=== PATIENT | female | born 1960 | race Caucasian/White ===

== ENCOUNTER 2025-01-08 09:59 | Outpatient (CLI) | payer MEDICARE, OTHER, SELFPAY ==
--- NOTE | ~2025-01-08 | XR_ITS ---
Cervical Spine: AP, lateral, open-mouth views Clinical History: Pain Findings: The normal lordotic curve is maintained. Grade 1 anterolisthesis of C4 over C5 present. The re is mild facet arthropathy throughout the cervical spine.. Pre-vertebral soft tissues are unremarka ble. Impression: Grade 1 anterolisthesis of C4 over C5. Mild facet arthropathy throughout the cervical spine. Reviewed, dictated and finalized at location . Impression: Grade 1 anterolisthesis of C4 over C5. Mild facet arthropathy throughout the cervical spine.
--- NOTE | ~2025-01-08 | XR_ITS ---
Right Knee Technique: AP, lateral, and sunrise views were obtained. Clinical History: Pain Findings: No fracture or dislocation is seen. Osseous alignment is anatomic. Joint spaces are preserv ed, with minimal patellar spurring. Soft tissues are unremarkable. No joint effusion is seen. Impression: Minimal patellar spurring. Reviewed, dictated and finalized at location . Impression: Minimal patellar spurring.
--- OUTSIDE RECORDS SUMMARY | 2025-01-08 10:24 | XMS_ITS | Continuity of Care Document ---
Author Name [facility] Organization [facility] Care Team Providers Care Supervisor Sheet Manufacturing Name Role Phone [facility] Unavailable Unavailable Problems Combined list of problems from Department of Defense and Veterans Affairs facilities. It does not include entries that were removed or entered in error. Problem Status Onset Date Problem Type Date of Resolution Comments Source Oral herpes simplex infection Active 024 Diagnosis 8819P-Kr-P-375 [facility] Encounter for screening for malignant neoplasm of colon Active 024 Diagnosis 7125L-Mn-R-375 [facility] Allergic rhinitis Active 024 Diagnosis 3748Z-Qx-K-375 [facility] Depressive disorder Active 024 Diagnosis 2020G-Yk-R-375 [facility] Hyperlipidemia Active 024 Diagnosis 2993T-Yk-R-375 [facility] Restless legs Active 024 Diagnosis 4681R-Hn-D-375 [facility] Obstructive sleep apnea syndrome Active 024 Diagnosis 2199L-Rr-T-375 [facility] Pain of bilateral knee joints Active 024 Diagnosis 7643B-Rn-W-375 [facility] Well adult Active 024 Diagnosis 6805C-Vs-U-375 [facility] Allergic rhinitis Active Condition 7224K-Ss-Y-375 [facility] Chronic diarrhea of unknown origin Active Condition 8127Q-Ar-Y-375 [facility] Depressive disorder Active Condition 8134T-Gv-K-375 [facility] Elevated blood pressure Active Condition 7489Q-Ho-W-375 [facility] FH: Cardiovascular disease1 Active Condition Outside Source Comment: ASA 81mg #90 1po qd x3rf ordered in [facility] 0628B-Oo-A-375 [facility] Hip pain Active Condition 8697S-Ed-Z-37 5 [facility] Hyperlipidemia Active Condition 6130C-A f-C-375 [facility] Internal hemorrhoids Active Condition 1071L-Jh-V-37 5 [facility] Morbid obesity Active Condition Unknown Organization Obesity Active Condition 1128P-Ju-U-375 [facility] Obstructive sleep apnea syndrome Active Condition 5289N-Wi-E-375 [facility] Plantar fasciitis Active Condition 0940I-Eg-W-375 [facility] Restless legs Active Condition 6130C-Af -C-375 [facility] Restless legs syndrome Active Condition DoD Obstructive sleep apnea (adult) (pediatric) Active Condition DoD Hyperlipidemia, unspecified Active Condition DoD Pain in left hip Active Condition DoD Pain in left foot Active Condition DoD MICROSCOPIC HEMATURIA Active Condition DoD HEMORRHOIDS INTERNAL Active Condition DoD sudden redness of the skin (flushing) Active Condition DoD ROUTINE GYNECOLOGICAL EXAM Inactive Condition DoD ACROCHORDON Active Condition DoD POSTMENOPAUSAL BLEEDING Active Condition DoD sleep disturbances Active Condition DoD OBESITY MORBID Active Condition DoD ALLERGIC RHINITIS Active Condition DoD SINUSITIS ACUTE Inactive Condition DoD difficulty breathing (dyspnea) Active Condition DoD discharge of pus from eyes Inactive Condition DoD visit for: refer patient without exam or treatment Active Condition DoD Pain / Temperature Decrease Shoulders Active Condition DoD DEPRESSION Active Condition DoD BREAST LUMP OR MASS Active Condition DoD Pelvic Exam (Internal) Inactive Condition DoD PLANTAR FASCIITIS Active Condition DoD OBESITY Active Condition DoD MENOPAUSE Active Condition DoD Murmurs Active Condition DoD CONTACT DERMATITIS Active Condition DoD diarrhea Active Condition DoD MENOPAUSE SYMPTOMATIC Active Condition DoD SINUSITIS Active Condition Will start Augmentin for a 21 day course. She continues to have symptoms will need to have an ENT evaluate her. Discussed the risk of Clostridium difficile and asked her to return for diarrhea DoD Blood Pressure Isolated Elevated Active Condition DoD headache Inactive Condition DoD TONSILLITIS Active Condition Tonsilli ths. Will send to ENT for eval DoD CHOLELITHIASIS Active Condition GS consult DoD Food Sources For Nutrients Active Condition DoD OVERWEIGHT Active Condition Overweigh t status RT nutrition related knowledge deficit AEB BMI above normative standard for age and gender. DoD HYPERLIPIDEMIA Active Condition Alter ed labs RT nutrition related knowledge deficit AEB elevated total and slightly high LDL. DoD Patient Education - Dietary Active Condition Reviewed pt aaliyah d diary incates her diet is low in fiber and slightly high in fat and Na+. Pt should add more fruits and vegetables into her diet to increase fiber, nutrients and minerals as this will help her improve lipids. Pt exercise routine is adequate to address her goals/concerns. Believe pt understood all nutrition concepts and topics presented and she will begin to incorporate today's recommendation into her lifestyle. DoD OLIGOMENORRHEA Active Condition DoD ANXIETY DISORDER NOS Active Condition Will decrease Zoloft dose to 50 mg and start Wellbutrin 100 mg once a day. We discussed how Wellbutrin is typically a b.i.d. medicine but she would like to just take it once a day at first. After two follow up in 4 weeks or sooner if concerns DoD Laboratory Studies Inactive Condition DoD red blood in bowel movement (hematochezia) Active Condition Pt with h/o peptic ulcer and internal hemorrhoids with hematochezia referred to GI for Colonoscopy and EGD. Pt denies hematochezia inlast week or so but will check hemoglobin and occult blood. Denies dizziness, denies SOB, denies CP/palpitations. DoD visit for: screening exam malignant neoplasm breast Active Condition Mammogram ordered. DoD Cervical Pap Smear Active Condition DoD MENORRHAGIA Active Condition Pt had menorrhagia after a brief period of amenorrhea with her FSH and LH indicative of menopause and sx's of menopause. Given pt's age will refer to acid condenser for assessment for an EMB. Will also check an Prl level which pt can't have drawn today but will return to lab to have drawn. DoD reported family history of heart disease Active Condition ASA 81mg #90 1p o qd x3rf ordered in [facility] DoD irregular length of menstrual periods Active Condition DoD ROUTINE GYNECOLOGICAL EXAM WITH CERVICAL PAP SMEAR Active Condition Pt with irregular peroids will check TSH, LH and FSH. Pt denies possiblity of reports is s/p vasectomy and her last intercourse was >6 mos ago. Pt scheduled for f/u in 2 weeks to review labs and continue DUB work-up.Pt reports taking Zoloft for anxiety and then being given Wellbutrin to incerase her sex drive but that the Wellbutrin has not helped sufficiently and she decided to stop taking it 2 months ago. She states that she doesn't want to take it if it isn't doing anything. However, she states that her Zoloft was decreased from 100mg to 50mg when the Wellbutrin was added and now she desires to go back to the Zoloft at 100mg a day because she thinks it worked better for her. She denies any current problems. Denies suicidal ideations. Denies homicidal ideations. Reports her anxiety is doing well but was optimal at 100mg. Will f/u with this when pt RTC in 2 weeks. Pt instructed to RTC sooner if any problems. Discussed with pt the potential adverse/side effects of med including its potential for suicidal ideations and its uncertain safety in and not to take with etoh. Pt instructed to reportt ot the ER if suicidal ideations or homicidal ideations occur. DoD visit for: screening exam for malignant neoplasm cervix Inactive Condition DoD visit for: issue repeat prescription Inactive Condition DoD joint pain, localized in the hip Active Condition DoD PHARYNGITIS Inactive Condition DoD UPPER RESPIRATORY INFECTION ACUTE Inactive Condition DoD visit for: issue repeat prescription for medication Inactive Condition DoD STRAIN Inactive Condition released t o full duty/work status on 01/20/05. Will call her insurance company. DoD PANIC DISORDER WITHOUT AGORAPHOBIA Active Condition good control, refill meds DoD visit for: administrative purpose Inactive Condition DoD BACKACHE Inactive Condition DoD BRONCHITIS Active Condition Pt to dri nk plenty of fluids, rest and to wash hands regularly. DoD Medications Combined list of outpatient medications from Department of Defense and Veterans Affairs facilities.Medications provided include 1) outpatient medications from the last 15 months, and 2) patient-reported medications. Medication Details Route Status Patient Instructions Prescription Expires Prescription Number Last Dispense Date Ordering Provider Order Date Order Qty Source celecoxib 100 mg capsule See Instruct ions, # 60 EA, 0 total refill(s ), Soft Stop Ordered 5 2024 60.0 Ambulat ory Pharmac y Centrum Silver Ultra Women's Oral, Daily, 0 total refill(s ), Maintena nce Oral (given by mouth) Ordered 2022 6130C-A f-C-375 [facility] CETIRIZINE (U/D) 10 MG ORAL TAB May cause drowsine ss.Obtai n advice for OTCs. 04/16/2024 [id number] 3 2023 90 [facility] [place] ([facility] [place]) cetirizine 10 mg oral tablet 1 tab(s), Oral, Daily, 90 tab(s), # 90 tab(s), 3 total refill(s ), [facility], Pharmacy : [facility] Oral (given by mouth) Ordered 5 2023 90.0 6130C-A f-C-375 [facility] cetirizine 10 mg oral tablet 90 tab(s), 0 total refill(s ), Soft Stop Discont inued 04/17/20232022 6130C-A -C-375 [facility] cetirizine 10 mg oral tablet 1 tab(s), Oral, Daily, 90 tab(s), # 90 tab(s), 3 total refill(s ), [facility], Pharmacy : [facility] Oral (given by mouth) Discont inued 05/10/2024 4 2023 90.0 6130C-A -C-375 [facility] famotidine 20 mg oral tablet TAKE ONE TABLET BY MOUTH TWICE A DAY, # 90 EA, 1 total refill(s ), Acute Complet ed 02/03/2023 3 2022 90.0 Ambulat ory Pharmac y famotidine 20 mg oral tablet famotidi ne 20 mg oral tablet Start Date: 05/27/21 Stop Date: 05/10/24 Status: Disconti adriana Repeat number: 1 Discont inued 05/10/20242023 No Facilit y Access famotidine 20 mg oral tablet 90 tab(s), 0 total refill(s ), Soft Stop Discont inued 04/17/20232022 6130C-A -C-375 Th [facility] famotidine 20 mg oral tablet 1 tab(s), Oral, Daily, 90 tab(s), # 90 tab(s), 3 total refill(s ), [facility], Pharmacy : [facility] Oral (given by mouth) Discont inued 05/10/2024 4 2023 90.0 6130C-A -C-375 Th [facility] FLUCELVAX QUAD [id number] (flu vaccine quad [id number](4 years and older)cell derived/PF) , 60MCG/.5ML FLUCELVA X QUAD 1 (flu vaccine quad 1(4 years and older)ce ll derived/ PF), 60MCG/.5 ML Start Date: 06/13/20 Stop Date: 03/23/23 Status: Complete d Repeat number: 1 Complet ed 03/23/20232022 No Facilit y Access fluticasone 50 mcg/inh nasal spray fluticas one 50 mcg/inh nasal spray Start Date: 12/23/20 Stop Date: 05/10/24 Status: Disconti nued Repeat number: 1 Discont inued 05/10/20242023 No Facilit y Access rOPINIRole 1 MG ORAL TAB May cause drowsine ss.Take with food/mil k.Take or use exactly as directed . 04/16/2024 [id number] 3 2023 90 [facility] [place] ([facility] [place]) rOPINIRole 1 mg oral tablet rOPINIRo le 1 mg oral tablet Start Date: 04/15/21 Stop Date: 05/10/24 Status: Disconti nued Repeat number: 1 Discont inued 05/10/20242023 No Facilit y Access rOPINIRole 1 mg oral tablet 1 tab(s), Oral, Daily, 90 tab(s), # 90 tab(s), 3 total refill(s ), [facility], Pharmacy : [facility] Oral (given by mouth) Ordered 5 2023 90.0 6130C-A f-C-375 Th [facility] rOPINIRole 1 mg oral tablet 90 tab(s), 0 total refill(s ), Soft Stop Discont inued 04/17/20232022 6130C-A f-C-375 Th [facility] rOPINIRole 1 mg oral tablet 1 tab(s), Oral, Daily, 90 tab(s), # 90 tab(s), 3 total refill(s ), [facility], Pharmacy : [facility] Oral (given by mouth) Discont inued 05/10/2024 4 2023 90.0 6130C-A f-C-375 [facility] rosuvastati n (U/D) 10 MG ORAL TAB Do not take with milk, antacids , or iron.Servando e or use exactly as directed .Do not take if . 04/16/2024 [id number] 3 [address] [place] [address] ([facility] [place]) rosuvastati n 10 mg oral tablet rosuvast atin 10 mg oral tablet Start Date: 12/11/20 Stop Date: 05/10/24 Status: Disconti numere Repeat number: 1 Discont inued 05/10/20242023 No Facilit y Access rosuvastati n 10 mg oral tablet 1 tab(s), Oral, Daily, 90 tab(s), # 90 tab(s), 3 total refill(s ), [facility], Pharmacy : [facility] Oral (given by mouth) Ordered 5 2023 90.0 6130C-A -C-375 [facility] rosuvastati n 10 mg oral tablet 90 tab(s), 0 total refill(s ), Soft Stop Discont inued 04/17/20232022 6130C-A f-C-375 [facility] rosuvastati n 10 mg oral tablet 1 tab(s), Oral, Daily, 90 tab(s), # 90 tab(s), 3 total refill(s ), [facility], Pharmacy : [facility] Oral (given by mouth) Discont inued 05/10/2024 4 2023 90.0 6130C-A f-C-375 [facility] sertraline (U/D) 100 MG ORAL TAB May cause drowsine ss.Take or use exactly as directed .Obtain advice for OTCs. 04/16/2024 [id number] 3 [address] [place] [address] ([facility] [place]) sertraline 100 mg oral tablet 1 tab(s), Oral, Daily, take with the 50mg tablet to be a total of 150mg daily, # 90 tab(s), 3 total refill(s ), [facility], Pharmacy : [facility] Oral (given by mouth) Ordered 2023 90.0 6130C-A f-C-375 [facility] sertraline 100 mg oral tablet sertrali ne 100 mg oral tablet Start Date: 05/27/21 Stop Date: 05/10/24 Status: Disconti adriana Repeat number: 1 Discont inued 05/10/20242023 No Facilit y Access sertraline 100 mg oral tablet 1 tab(s), Oral, Daily, 90 tab(s), # 90 tab(s), 3 total refill(s ), [facility], Pharmacy : [facility] Oral (given by mouth) Discont inued 05/10/20242023 90.0 6130C-A f-C-375 [facility] sertraline 100 mg oral tablet 90 tab(s), 0 total refill(s ), Soft Stop Discont inued 04/17/20232022 6130C-A f-C-375 [facility] sertraline 100 mg oral tablet 1 tab(s), Oral, Daily, 90 tab(s), # 90 tab(s), 3 total refill(s ), [facility], Pharmacy : [facility] Oral (given by mouth) Discont inued 05/10/2024 2023 90.0 6130C-A -C-[address] [facility] s[facility]ine 150 mg oral capsule 1 cap(s), Oral, Daily, # 90 cap(s), 3 total refill(s ), [facility], Pharmacy : [facility] Oral (given by mouth) Discont inued 05/10/20242023 90.0 6130C-A f-C-375 [facility] sertraline 50 mg oral tablet 1 tab(s), Oral, Daily, take with 100mg tablet to be a total of 150mg daliyy, # 90 tab(s), 3 total refill(s ), [facility], Pharmacy : [facility] Oral (given by mouth) Ordered 5 2023 90.0 6130C-A -C-375 Th [facility] sertraline 50 mg oral tablet sertrali ne 50 mg oral tablet Start Date: 04/15/21 Stop Date: 03/23/23 Status: Complete d Repeat number: 1 Complet ed 03/23/20232022 No Facilit y Access tirzepatide (Zepbound) 2.5 mg/0.5 mL inj-pen [4pens/2mL] See Instruct ions, # 2 mL, 0 total refill(s ), Soft Stop Notes: refriger ate Ordered 5 2024 2.0 Ambulat ory Pharmac y valACYclovi r 500 mg oral tablet 3 total refill(s ) Discont inued 05/10/20242023 No Facilit y Access valACYclovi r 500 mg oral tablet 1 tab(s), Oral, Daily, 90 tab(s), # 90 tab(s), 3 total refill(s ), [facility], Pharmacy : [facility] , Viral prophyla xis Oral (given by mouth) Ordered 5 2023 90.0 6130CA -C-375 Th [facility] valACYclovi r 500 mg oral tablet 90 tab(s), 0 total refill(s ), Soft Stop Discont inued 04/17/20232022 6130CA -C-375 Th [facility] valACYclovi r 500 mg oral tablet 1 tab(s), Oral, Daily, 90 tab(s), # 90 tab(s), 3 total refill(s ), [facility], Pharmacy : [facility] Oral (given by mouth) Discont inued 05/10/2024 4 2023 90.0 6130C-A -C-375 Th [facility] Allergies, Adverse Reactions, Alerts Combined list of allergies from Department of Defense and Veterans Affairs facilities. It does not include entries that were removed or entered in error. Substance Category Reaction Severity Reaction type Status Date Reported Comments Source No Known Allergies Drug allergy (disorder) active 09/18/2007 [facility] [place] ([facility] [place]) Immunizations Combined list of available immunizations from the Department of Defense and Veterans Affairs facilities. Immunization Series Date Given Administered By Site Reaction Lot Number CVX Code Drug Manager Hair Status Comments Source tetanus toxoid, reduced diphtheria toxoid, and acellular pertu is vaccine, adsorbed 1 2021 Unknown, Provider [id number] [facility] (B) complet ed tetanus toxoid, reduced diphtheri a toxoid, and acellular pertussis vaccine, adsorbed DoD COVID-19, mRNA, LNP-S, PF, 30 mcg/0.3 mL dose, winnie-sucrose 2021 DANYELL, [place] (PFR) Not Given COVID-19, mRNA, LNP-S, PF, 30 mcg/0.3 mL dose, winnie-sucr ose DoD SARS-COV-2 (COVID-19) vaccine, mRNA, spike protein, LNP, preservative free, 30 mcg/0.3mL dose 3 2021 Unknown, Provider [id number] [employer] (PFR) complet ed SARS-COV- 2 (COVID-19 ) vaccine, mRNA, spike protein, LNP, preservat shukri free, 30 mcg/0.3mL dose DoD influenza, injectable, quadrivalent- pf 2020 zzLef t Arm [id number] 150 [facility] complet ed influenza , injectabl e, quadrival ent-pf 06/10/21 Given Ambulat ory Pharmac y Influenza, injectable, quadrivalent, preservative free 1 2020 Unknown, Provider [id number] 150 [facility] ([facility]) complet ed Influenza , injectabl e, quadrival ent, preservat shukri free DoD COVID Vaccine Pfizer 2020 [id number] [employer] complet ed COVID Vaccine Pfizer 12/14/20 Given Ambulat ory Pharmac y SARS-COV-2 (COVID-19) vaccine, mRNA, spike protein, LNP, preservative free, 30 mcg/0.3mL dose 2 2020 Unknown, Provider [id number] [employer] (PFR) complet ed SARS-COV- 2 (COVID-19 ) vaccine, mRNA, spike protein, LNP, preservat shukri free, 30 mcg/0.3mL dose DoD COVID Vaccine Pfizer 2020 [id number] [employer] complet ed COVID Vaccine Pfizer 11/23/20 Given Ambulat ory Pharmac y SARS-COV-2 (COVID-19) vaccine, mRNA, spike protein, LNP, preservative free, 30 mcg/0.3mL dose 1 2020 Unknown, Provider [id number] [employer] Inc (PFR) complet ed SARS-COV- 2 (COVID-19 ) vaccine, mRNA, spike protein, LNP, preservat shukri free, 30 mcg/0.3mL dose DoD zoster vaccine, inactivated 2019 zzLef t Arm [id number] [employer] complet ed zoster vaccine, inactivat ed 08/12/20 Given Ambulat ory Pharmac y zoster vaccine recombinant 1 2019 Unknown, Provider [id number] 187 [employer] (SKB) complet ed zoster vaccine recombina nt DoD Influenza, injectable, MDCK, preservative free, quadrivalent 2019 ALUL, () Not Given Influenza , injectabl e, MDCK, preservat shukri free, quadrival ent DoD zoster vaccine, inactivated 2019 zzLef t Arm [id number] 187 [employer] complet ed zoster vaccine, inactivat ed 05/21/20 Given Ambulat ory Pharmac y zoster vaccine recombinant 1 2019 Unknown, Provider [id number] 187 [employer] (SKB) complet ed zoster vaccine recombina nt DoD Results Combined list of recent chemistry, hematology and other laboratory results from Department of Defense and Veterans Affairs, ranging from 15 months to all on record, depending upon the facility. Order Name Results Value Reference Range Date Interpretation Specimen Comments Source Chemistry eGFR CKD EPI 83 mL/min /1.73_ m2 04/07 Interpretive Data: Estimated Glomerular Filtration Rate (eGFR) calculated using the 2020 Chronic Kidney Disease-Epid emiology (CKD-EPI) Collaboratio n creatinine equation; units of measure are mL/min/1.73 m2. Results are only valid for adults (>=18 years) whose serum creatinine is in steady state. eGFR calculations are not valid for patients with acute kidney injury and for patients on dialysis. Creatinine-b ased estimates of kidney function may also be inaccurate in patients with reduced creatinine generation due to decreased muscle mass (e.g., malnutrition , severe hypoalbumine rena, sarcopenia, chronic neuromuscula r disease, amputations, severe heart failure or liver disease) and in patients with increased creatinine generation due to increased muscle mass (e.g., muscle builders, anabolic steroids) or increased dietary intake. CKD is diagnosed based on abnormalitie s of kidney structure or function, present for >3 months, with implications for health and disease. CKD is classified and staged based on cause, eGFR and albuminuria (quantified as urine albumin to creatinine ratio). An eGFR >60 mL/min/1.73 m2 in the absence of increased urine albumin excretion or structural abnormalitie s does not CKD. eGFR provides only an estimate of measured GFR within +/- 30% for most patients. As mentioned, nutritional status and muscle mass, among many factors, may lead to inaccuracy in the estimate. Consider ordering the creatinine-c ystatin C panel if better accuracy is needed for clinical decision-wesley ing. eGFR (mL/min/1.73 m2) CKD stage Interpretati on Normal 60-89 Mild decrease 45-59 Mild to moderate decrease 30-44 Moderate to severe decrease 15-29 Severe decrease <15 Kidney failure 0055A-3 [facility] [place] Chemistry AGAP 11.00 0.00 - 15.00 04/07 N 0055A-[address] [place], [place] [address] Chemistry Chloride 112 mmol/L 98 - 107 04/07 H 0055A-[address] [place] [address] [facility] Chemistry Glucose Lvl 103 mg/dL 74 - 99 04/07 H 0055A-[address] [place] [address] [facility] Chemistry BUN 15 mg/dL 7 - 20 04/07 N 0055A-[address] [place], [place] [address] Chemistry Potassium Lvl 4.6 mmol/L 3.5 - 5.1 04/07 N 0055A-[address] [place], [place] [address] Chemistry CO2 26 mmol/L 22 - 29 04/07 N 0055A-[address] [place] [address] [facility] Chemistry BUN/Creat Ratio 19 mg/dL 12 - 20 04/07 N 0055A-[address] [place] [address]- [facility] Chemistry Sodium 149 mmol/L 136 - 145 04/07 H 0055A-[address] [place] [address]- [facility] Chemistry Calcium 9.7 mg/dL 8.4 - 10.2 04/[address] [place] [address] Chemistry Creatinine Level 0.80 mg/dL 0.57 - 1.11 04/[address] [place] [address] Chemistry Ur Creat 126 mg/dL 04/[address] [place] [address] Chemistry Ur Microalb/Ur Creat Ratio 4.8 mg/gCr 04/07 Result Comment: CORRECTED DUE TO UNIT OF MEASURE CONVERSION. [address] [place] [address] Chemistry Ur Microalbumi n 6 mg/gCr 04/07 N Interpretive Data: To minimize intra-indivi dual variation, analysis of three random urine samples collected over the course of a week has also been recommended. [address] [place] [address] Chemistry Hemoglobin A1c 5.1 % 4.0 - 5.6 04/07 N Interpretive Data: Normal: 4.0 - 5.6% Increased Risk: 5.7 - 6.4% Diabetic Range: 6.5% For patients without diabetes, the normal range for the hemoglobin A1c test is between 4% and 5.6%. Hemoglobin A1c levels between 5.7% and 6.4% indicate increased risk of diabetes, and levels of 6.5% or higher indicate diabetes. Because studies have repeatedly shown that yyu-ho-pophe ol diabetes results in complication s from the disease, the goal for people with diabetes is a hemoglobin A1c less than 7%. The higher the hemoglobin A1c, the higher the risks of developing complication s related to diabetes. If confirmation is needed, consider recalling the patient and ordering Hemoglobin [employer]roph[employer] sis. [address] [place] [address] Chemistry eAvg Glucose 100 mg/dL 04/[address] [place] [address] Chemistry HDL Cholesterol 63 mg/dL 40 - 59 04/07 H Interpretive Data: HDL (HIGH DENSITY LIPOPROTEIN) : ADULTS: Low: < 40 mg/dL High: >/= 60 mg/dL AGES 0 -19: Low: < 40 mg/dL Borderline Low: 40 - 45 mg/dL Acceptable: > 45 mg/dL [address] [place] [address] Chemistry LDL 89 mg/dL 100 - 130 04/07 L Interpretive Data: AGES 0-19: Desirable: < 110 mg/dL Borderline High: 110-129 mg/dL High: >/= 130 mg/dL ADULTS: Desirable: <100 mg/dL Near/above optimal: 100-130 mg/dL Borderline High: 131-159 mg/dL High: 160-189 mg/dL Very High: 190 mg/dL [address] [place] [address] Chemistry Chol/HDL 3 mg/dL 04/[address] [place] [address] Chemistry Cholesterol Total 158 mg/dL 04/07 N Interpretive Data: According to the [place] [employer]: AGES 0-19: Desirable: < 170 mg/dL Borderline High: 170-199 mg/dL High Blood Cholesterol: >/= 200 mg/dL ADULTS: Desirable < 200 mg/dL Borderline High: 200-239 mg/dL High Blood Cholesterol: >/= 240 mg/dL [address] [place] [address] Chemistry LDL/HDL 1 04/[address] [place] [address] Chemistry Triglycerid es 120 mg/dL 7 - 149 04/07 N Interpretive Data: AGES 0-9: Desirable: < 75 mg/dL Borderline High: 75-99 mg/dL High: >/= 100 mg/dL AGES 10-19: Desirable: < 90 mg/dL Borderline High: 90-129 mg/dL High: >/= 130 mg/dL ADULTS: Desirable: < 150 mg/dL Borderline High: 150-199 mg/dL High: >/= 240 mg/dL Very High: >/= 500 mg/dL [address] [place] [address] Vital Signs Combined list of inpatient and outpatient Vital Signs from Department of Defense and Veterans Affairs, ranging from 12 months to all on record, depending upon the facility. Vital Sign Value Date Comments Source Blood Pressure Manual Automatic 04/17/2023 20:40:00 [id number] 81 bpm 04/17/2023 20:40:00 [facility] Mean Arterial Pressure, Calc 96 mm[Hg] 04/17/2023 20:40:00 5095T-Kn-E-[address] [place], [place] [address]Ishan Systolic Blood Pressure 129 mm[Hg] 04/17/2023 20:40:00 8924K-Yt-I-375Th [facility] Diastolic Blood Pressure 79 mm[Hg] 04/17/2023 20:40:00 4446M-Op-A-375Th [facility] Respiratory Rate 16 br/min 04/17/2023 20:40:00 9416H-Sy-J-375Th [facility] BP Site Left arm 04/17/2023 20:40:00 6130C -Af-C-375Th [facility] Peripheral Pulse Rate 64 bpm 03/23/2023 14:54:00 4949O-Rp-C-375Th [facility] BP Site Right arm 03/23/2023 14:54:00 6130C -Af-C-375Th [facility] Blood Pressure Manual Automatic 03/23/2023 14:54:00 6636W-Qy-L-375Th [facility] Systolic Blood Pressure 140 mm[Hg] 03/23/2023 14:54:00 0536M-Fw-M-375Th [facility] Diastolic Blood Pressure 83 mm[Hg] 03/23/2023 14:54:00 1595O-Zc-I-375Th [facility] Mean Arterial Pressure, Calc 102 mm[Hg] 03/23/2023 14:54:00 8104Z-Er-G-3 75Th [facility] Peripheral Pulse Rate 59 bpm 05/10/2024 14:59:00 7888K-Wq-H-375Th [facility] Respiratory Rate 18 br/min 05/10/2024 14:59:00 9959I-Cl-P-375Th [facility] Mean Arterial Pressure, Calc 101 mm[Hg] 05/10/2024 14:59:00 6026U-Lm-R-3 75Th [facility] BP Site Right arm 05/10/2024 14:59:00 6130C -Af-C-375Th [facility] Systolic Blood Pressure 143 mm[Hg] 05/10/2024 14:59:00 7646F-Fd-V-375Th [facility] Diastolic Blood Pressure 80 mm[Hg] 05/10/2024 14:59:00 0063Z-On-X-375Th [facility] Blood Pressure Manual Automatic 05/10/2024 14:59:00 8656M-Rx-L-375Th [facility] Encounters Combined list of: 1) Encounters from Department of Veterans Affairs facilities going backup to the last 18 months, not all VA inpatient encounters are included; 2) Encounters from the Department of Defense facilities going backup to 280 months. Location Location Details Encounter Type Encounter Number Reason For Visit Attending Provider ADM Date DC Date Status Disposition Source [address] [place] [address] Ishan [facility] rishabh Practice Non-GME FHI2) OUTPATIENT [id number] cough/c hest congest EMERALD PEARCE 10/20 Released w/o Limitations [address] [place] [address] Ishan [facility])(F amily Practic e Non-GME FHI2) [address] [place] [address] Ishan [facility] rishabh Practice Non-GME FHI1) TELE CONSULT [id number] Needs paper filled out. CRISTOFER JACOB 12/[address] [place] [address] Ishan [facility])(F amily Practic e Non-GME FHI1) [address] [place] [address] Ishan [facility])([facility] rishabh Practice Non-GME FHI1) TELE CONSULT [id number] CECIL CRISTOFER 01/[address] [place] [address] Ishan [facility])(F amily Practic e Non-GME FHI1) [address] [place] [address] Ishan [facility])([facility] rishabh Practice Non-GME FHI1) TELE CONSULT [id number] RX REFILL DESTINEE JACKSON 07/[address] [place] [address] Ishan [facility])(F amily Practic e Non-GME FHI1) [address] [place] [address] Ishan B [facility])([facility] rishabh Practice Non-GME FHI1) OUTPATIENT [id number] PROD COUGH, S/T MIKEY GONZALEZ 08/31 Released w/o Limitations [address] [place] [address] Ishan [facility])(F amily Practic e Non-GME FHI1) [address] [place] [address] Ishan B [facility] rishabh Practice Non-GME FHI1) OUTPATIENT [id number] POSS LIZZIE WHITE 12/07 Released w/o Limitations [address] [place] [address] Ishan [employer] [facility])(F amily Practic e Non-GME FHI1) [address] [place] [address] Ishan B [facility])(Fam rishabh Practice Non-GME FHI1) OUTPATIENT [id number] hip and foot LIZZIE DOE 01/09 [id number]|2025-01-08 10:24:00|2025-01-08 10:24:00|XMS_ITS|MAX NAPIER|External Medical Summaries|[id number]|" Clinical Summary Created on: January 08, 2025 Tawana Chaparro Demian : 1960 Sex: Female Author Organization [facility] Address [address] [place] [address] Care Team Providers Care Supervisor Sheet Manufacturing Name Role Phone Unavailable Primary Care Provider Unavailabl e Social History Tobacco Use Types Packs/Day Years Used Date Smoking Tobacco: Never Assessed Comments Unknown Sex and Gender Information Value Date Recorded Sex Assigned at Not on file Legal Sex Female 6:56 PM CDT Gender Identity Not on file Sexual Orientation Not on file Plan of Treatment Health Maintenance Due Date Last Done Comments Colorectal Cancer Screening Colonoscopy (10 Years) 1960 Hepatitis C 11/15/1977 DTaP, Tdap and Td Vaccines ( 1 - Tdap) 11/15/1978 Mammogram Screening 1999 Pneumococcal Vaccine: 50+ Ye ars (1 of 1 - PCV) 11/15/2009 Zoster Vaccines (1 of 2) 11/15/2009 COVID-19 Vaccine (1 - 2023-2 5 season) 2024 Dexa Scan (General) 11/15/2024 RSV Immunization or 60+ Years (1 - 1-dose 75+ series) 11/15/2034 Meningococcal B Vaccine Aged Out No l onger eligible based on patient's age to complete this topic Meningococcal Vaccine Aged Out No olga ava eligible based on patient's age to complete this topic RSV Immunizations Under 20 Months Aged Out No longer eligible based on patient's age to complete this topic "
--- OUTSIDE RECORDS SUMMARY | 2025-01-08 10:24 | XMS_ITS | Data Portability ---
Author Organization [facility] ([facility] Address [address] [facility] [address] [place] [address] Care Team Providers Care Pill Coater Name Role Phone SHAUN JOSHI Referring Provider Unavailable Assessment No assessment recorded. Plan of Treatment Reminders Order Date Submit Date Provider Last Modified By Organization Details Last Modified Time Details Appointments None record ed. Lab None record ed. Referral None record ed. Procedures None record ed. Surgeries None record ed. Imaging None record ed. Medication Orders None record ed. Patient TargetsNo targets recorded. Patient InstructionsNo instructions recorded. Reason for Referral None Reported. Procedures Surgical History Date Name Laterality Status Provider Name and Address Organization Details Recorded Time 06/19/2018 Sleep Study completed Lamine Saha [facility] 06/20/20 18 10:31:33 Imaging Results None recorded. Procedure Notes None recorded. Medical Equipment None Reported. Vitals Date Recorded Body height Body mass index (BMI) Body weight Provider Name and Address Organization Details Last Updated DateTime 06/19/2018 165.1 cm 46.6 kg/m2 119528.86 g Lamine Saha [facility] 06/20/2018 10:19:29 Social History Question Answer Notes LastModified by Organizat ion Details LastModified Time Describe Your Sleep Problem Snores A Lot, Says She Could peel The [place] Of [place] With Her Snoring, Gets Acid Reflux At Night, Very Vivid Dreams, Gets A Headache An Hour After She Gets Up Every Day. Information not available 03/01/2018 Have You Had A Sleep Study Before? No Information not available 03/01/2018 Do You Snore? Yes Information not available 03/01/2018 Has Anyone Ever Told You That You Stop Breathing In Your Sleep Or Do You Waking Up Gasping/choki ng? Yes Says She's Stopped Breathing Information not available 03/01/2018 Do Your Legs Bother You At Night? Yes Information not available 03/01/2018 Do You Have Any Muscle Weakness With Emotion? No Information not available 03/01/2018 Sitting Quietly Do You Doze Off Unintentional ly? Yes In The 3 Months Information not available 03/01/2018 Do You Fall Asleep While Driving? No Information not available 03/01/2018 Do You Require Special Assistance? No Information not available 03/01/2018 Are You On Oxygen? If So, # LPM O2 No Information not available 03/01/2018 Sex: Unknown Functional Status None recorded. Mental Status None recorded. Family History Nothing Reported. Medical History No medical history recorded. Gynecological HistoryNo gynecological history recorded. Obstetrics History GPAL:G 0 P 0 0 0 0 Past Encounters Encounter ID Performer Location Encounter Start Date Encounter Closed Date Diagnosis/Indication Diagnosis SNOMED-CT Code Diagnosis ICD10 Code Diagnosis Note [id number] [facility] [place], [facility] [phone] [facility] [address] [place] [address] 06/19/2018 20:56:01 06/20/2018 10:17:53 Obstructive sleep apnea of adult 2320812784 103 G47.33 Health Concerns Section Related Observation LastModified by Organization Detai ls LastModified Time None Recorded Concern Status LastModified by Organization Details LastModified Time None Recorded Advance Directives Directive None Recorded Payers Insurance Date Sequence Insurance Name Policy Number Policy Marks Covered Member ID Marks Member ID Guarantor Name 06/29/2018 1 [facility] () Tawana Chaparro [id number] Tawana Chaparro OBGyn Episode No OBEpisode recorded.
--- OUTSIDE RECORDS SUMMARY | 2025-01-08 10:25 | XMS_ITS | Clinical Summary ---
Author Organization [facility] Address [address] [place] [address] Phone Care Team Providers Care Cartographic Designer Name Role Phone Provider, None Primary Care Provider Unavailabl e Allergies No known active allergies Medications Rosuvastatin Calcium (CRESTOR PO) Take 25 mg by mouth. Active sertraline (ZOLOFT) 100 MG Tablet Take 100 mg by mouth daily. Active Social History Tobacco Use Types Packs/Day Years Used Date Smoking Tobacco: Never Alcohol Use Standard Drinks/Week Comments No 0 (1 standard drink = 0.6 oz pur e alcohol) Comments No Sex and Gender Information Value Date Recorded Sex Assigned at Not on file Legal Sex Female 6:37 PM CDT Gender Identity Not on file Sexual Orientation Not on file Last Filed Vital Signs Vital Sign Reading Time Taken Comments Blood Pressure 163/85 12/01/2016 9:45 PM CDT Pulse 60 12/01/2016 9:45 PM CDT Temperature 36.1 C (96.9 F) 12/01/2016 7:04 PM CDT Respiratory Rate 18 12/01/2016 9:45 PM CDT Oxygen Saturation 97% 12/01/2016 7:04 PM CDT Inhaled Oxygen Concentration - - Weight 117.9 kg (260 lb) 12/01/2016 7:04 PM CDT Height 165.1 cm (5' 5 ) 12/01/2016 7:04 PM CDT Body Mass Index 43.27 12/01/2016 7:04 PM CDT Plan of Treatment Health Maintenance Due Date Last Done Comments Hepatitis C Virus (HCV) Screening 1960 TdaP Immunization 1960 Pap Smear 11/15/1980 Cervical Cancer Screening (CCS) 11/15/1989 HPV/Cotest 11/15/1989 Colonoscopy 11/15/2004 Colorectal Cancer Screening 11/15/2004 Cologuard 11/15/2009 Immunochemical Fecal Occult Blood 11/15/2009 Mammogram 11/15/2009 Pneumococcal Immunization (5 0+ years) (1 of 1 - PCV) 11/15/2009 Zoster Immunization (1 of 2) 11/15/2009 Influenza Immunization (#1) 2024 SARS-COV-2 Immunization ( - 2023- season) 2024 Respiratory Syncytial Virus (RSV) Immunization (Adult) (1 - 1-dose 75+ series) 11/15/2034 Hepatitis B Immunization Aged Out No longer eligible based on patient's age to complete this topic Meningococcal Immunization (ACWY) Aged Out No longer eligible based on patient's age to complete this topic Pneumococcal Immunization Combined Aged Out No longer eligible based on patient's age to complete this topic Rotavirus Immunization Aged Out No lo nger eligible based on patient's age to complete this topic Care Teams Cartographic Designer Relationship Specialty Start Date End Date Provider, None [place] PCP - General 12/01/16
== END 2025-01-08 10:00 | disposition home or self-care (01) ==
PROVIDERS: PCP Nurse Practitioner Family; Visit Provider Nurse Practitioner Family
DX: M25.561 Pain in right knee (principal); M25.562 Pain in left knee; M47.812 Spondylosis without myelopathy or radiculopathy, cervical region
CPT/HCPCS: 72040; 73564

== ENCOUNTER 2025-01-10 08:09 | Outpatient (CLI) | payer MEDICARE, OTHER, SELFPAY ==
--- NOTE | ~2025-01-10 | DEXA_ITS ---
Bone Density Report Name: MILLER CLEMONS Age: 64 Sex: Female Ethnicity: White Date of : 1960 Indication: screening for osteoporosis; Referring Provider: ANDREZ GUZMÁN Study: Bone densitometry was performed. Exam Date: January 10, 2025 Accession number: [id number] Bone Density: Region BMD T-score Z-score Classification AP Spine(L1-L4) 0.887 -1.5 0.3 Osteopenia Femoral Neck (Left) 0.650 -1.8 -0.3 Osteopenia Total Hip (Left) 1.008 0.5 1.8 Normal Femoral Neck (Right) 0.651 -1.8 -0.3 Osteopenia Total Hip (Right) 0.943 0.0 1.2 Normal Total Hip Mean 0.975 0.3 1.5 Normal World Health Organization criteria for BMD impression classify patients as: Normal (T-score at or above -1.0), Osteopenia (T-score between -1.0 and -2.5), or Osteoporosis (T-score at or below -2.5). 10-year Fracture Risk: FRAX not reported because: Premenopausal woman Clinical Information Provided by Patient: Has used the following medications: Vitamin D, Calcium Patient maximum height was 65 Menopause Age: 49 No regular weight bearing exercise Drinks caffeinated beverages Onset of menses at age 15 Premenopausal Number of children 2 Impression: The patient's bone mass is within expected range for age, gender and ethnicity. Discussion: BONE DENSITY IS WITHIN EXPECTED LIMITS FOR AGE, SEX AND RACE. Bone density is within expected limits for age, sex and race at all sites measured. The patient should follow a healthful lifestyle (good nutrition with adequate calcium and vitamin D, and appropriate weight-bearing exercise). Follow-Up: Consider repeating this study in 2 to 3 years to reassess this patient's status, or sooner if there is some new clinical indication. Reported by: WAYNE on 01/10/2025 8:49:00 AM. Reviewed, dictated and finalized at location A.
--- OUTSIDE RECORDS SUMMARY | 2025-01-10 08:15 | XMS_ITS ---
"Ishan ELLSWORTH [place] [place] 3) [address] [place] [address] Ishan TUNGNicolle [place] [place] Team 3) TELE CONSULT [id number] Saturnino haynes for echo cardio gram. AMW Pt number [phone] PATRIC ALMONTE 06/17 Referred for Appointment [address] [place] [address] Group Ishan ELLSWORTH [place] [place] [address]) [address] [place] [address] Ishan ELLSWORTH [facility]Fam rishabh Med Tm B Non-AD BCC) TELE CONSULT [id number] weekend exchang e call USHA JAIN 07/[address] [place] [address] Group Ishan TUNGNicolle ([facility] [place]F amily Med Tm B Non-AD BCC) [address] [place] [address] Ishan ELLSWORTH [facility])(Car diology (MTF)) OUTPATIENT [id number] murmur LIPOFFJEREMÍAS I 07/13 Released w/o Limitations [address] [place] [address] Ishan TUNGNicolle [place] [place]C ardiolo gy ([facility])) [address] [place] [address] Ishan TUNGNicolle [facility] Team 3) TELE CONSULT [id number] Saturnino /[phone]/ne eds meds refill to [id number] PATRIC ALMONTE 07/[address] [place] [address] Group Ishan TUNGNicolle [facility] 3) [address] [place] [address] Ishan TUNGNicolle [facility])([facility] Team 3) OUTPATIENT [id number] f/u to echo [phone] TYSON CALVIN 08/25 Released w/o Limitations [address] [place] [address] Ishan ELLSWORTH [facility] 3) [address] [place] [address] Ishan TUNGNicolle [facility])([facility] Team 3) TELE CONSULT [id number] lab results - PCM YESSENIA Brower 08/26 Other Not Elsewhere Classified [facility] Medical Group Ishan ELLSWORTH [facility] 3) [address] [place] [address] Ishan ELLSWORTH [facility] Team 3) TELE CONSULT [id number] new meds not working [phone] YESSENIA FITZPATRICK 08/31 Referred for Appointment [address] [place] [address] Ishan ELLSWORTH [facility] 3) [address] [place] [address] Ishan ELLSWORTH [facility] Team 3) OUTPATIENT [id number] sinus.. .[id number] KETTY RAINES Ganga 12/23 Released w/o Limitations [facility] Medical Group [employer] ([facility] [place]) [address] [place] [address] [employer] ([facility] [place] Team 3) TELE CONSULT [id number] F/u labs KETTY RAINES A 12/23 [facility] Medical Group [employer] ([facility] [place] Medical [facility] [employer] ([facility] [place]) OUTPATIENT [id number] [facility], JARAD 01/06 Released w/o Limitations [employer] ([facility] [place]N utritio nal Medicin e) [facility] Medical [facility] [employer] ([facility] [place]) OUTPATIENT [id number] obesity F/U [facility], JARAD 02/07 Released w/o Limitations [facility] Medical Group [employer] ([facility] [place]N utritio nal Medicin e) [facility] Medical [facility] [employer] ([facility] [place] Team 3[facility] OUTPATIENT [id number] sinus infecti on [id number] TYSON CALVIN 04/06 Released w/o Limitations [facility] Medical Group Ishan RUBYB ([facility] [place]) [address] [place] [address] [employer] [facility] Team 3) TELE CONSULT [id number] Pt on vacatio n and forget to take meds please call @ [phone] CAD [facility] YESSENIA FITZPATRICK 04/11 [facility] [employer] ([facility] [place]) [facility] [employer] ([facility] 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) OUTPATIENT [id number] f/u prempro /[id number] ESTEE DALTON 08/03 Released w/o Limitations [address] [place] [address])(G ynecolo gy) [address] [place], [place] [address]B [facility])(War rior Op Med Cln Tm A Ad) OUTPATIENT [id number] would like to change depress ion and cholest david medicat ion [phone] KAVYA FINNEY 03/25 Released w/o Limitations [address] [place] [address] [employer] [facility])(W arrior Op Med Cln Tm A Ad) [address] [place], [place] [address] [facility])(War rior Op Med Cln Tm A Ad) OUTPATIENT [id number] rash on neck [phone] SAMARIA CREWS 05/16 Released w/o Limitations [address] [place] [address])(W arrior Op Med Cln Tm A Ad) [address] [place] [address])(War rior Op Med Cln Tm A Ad) OUTPATIENT [id number] annual checkup , discuss pain in both feet, right knee [phone] KAVYA FINNEY 07/29 Released w/o Limitations [address] [place] [address])(W arrior Op Med Cln Tm A Ad) [address] [place] [address])(War rior Op Med Cln Tm A Ad) OUTPATIENT [id number] facial pain, sore throat, sinus congest ion [id number] NED CONNELLY 10/07 Released w/o Limitations [address] [place] [address])(W arrior Op Med Cln Tm A Ad) [address] [place] [address])(Med ication Refill Clinic) TELE CONSULT [id number] Notes Entered by: SAGRARIO WHYTE ELS 09 Nov 2015 1338 ------- ------- ------- ------- -- Med Bridge/ /Colane se//[phone] RIVAS MEJIA 11/[address] [place] [address])(Echo [facility]) [address] [place] [address])(Fam rishabh Med Tm B Non-AD BCC) TELE CONSULT [id number] Notes Entered by: Ganga YAO 19 Nov 2015 1447 ------- ------- ------- ------- -- SX - R Eye Swollen , drainag e / Colanes e / RENA BEST 11/18 Referred for Appointment [address] [place] [address])(F amily Med Tm B Non-AD BCC) [address] [place] [address])(Fam rishabh Med Tm B Non-AD BCC) OUTPATIENT [id number] right foot pain,me d review [phone] SAMARIA CREWS 12/08 Released w/o Limitations [address] [place] [address] Ishan [facility])(F amily Med Tm B Non-AD BCC) [address] [place] [address] Ishan [facility])(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) OUTPATIENT [id number] WWE/Pap RADHA MARLOW 12/15 Released w/o Limitations [address] [place] [address] Ishan [facility])(G ynecolo gy) [address] [place] [address] Ishan [facility])(Fam rishabh Med Tm B Non-AD BCC) TELE CONSULT [id number] Notes Entered by: LILLI GAYTAN 11 Feb 2016 1013 ------- ------- ------- ------- -- Network Results -RADIOL OGY 02/08/16 SCREEN MAMMO SDG SAMARIA CREWS 02/[address] [place] [address] Ishan [facility])(F amily Med Tm B Non-AD BCC) [address] [place] [address] Ishan [facility])(War rior Op Med Cln Tm A Ad) TELE CONSULT [id number] Notes Entered by: SAMARIA CREWS 11 Feb 20162007 ------- ------- ------- ------- -- Followu p on mammogr RENA Garcia 02/11 Referred for Appointment [address] [place] [address] Ishan [facility])(W arrior Op Med Cln Tm A Ad) [address] [place] [address] Ishan [facility])(Fam rishabh Med Tm B Non-AD BCC) TELE CONSULT [id number] Notes Entered by: LILLI GAYTAN 22 Mar 2016 0720 ------- ------- ------- ------- -- Network Results -RADIOL OGY 03/21/16 DX MAMMO/R T BRST SDG SHAUN FERNANDEZ 03/[address] [place] [address])(F amily Med Tm B Non-AD BCC) [address] [place] [address])(War rior Op Med Cln Tm A Ad) TELE CONSULT [id number] Notes Entered by: ROSA YIP 01 Nov 2016 1020 ------- ------- ------- ------- -- Colanes e/ Per Chelsea Ramirez/JIGNESH Lomax 11/01 Other Not Elsewhere Classified [address] [place] [address])(W arrior Op Med Cln Tm A Ad) [address] [place] [address])(Fam rishabh Med Tm B Non-AD BCC) TELE CONSULT [id number] Notes Entered by: JOHANN GUADARRAMA 02 Dec 2016 1042 ------- ------- ------- ------- -- F/U after ER Visit / Colanes e / - sgJIGNESH Rodarte 12/02 Released to Self Care [address] [place] [address])(F amily Med Tm B Non-AD BCC) [address] [place] [address])(Fam rishabh Med Tm B Non-AD BCC) OUTPATIENT [id number] Headach e/cough /sneezi ng/nasa l congest ion/tir ed [id number] DAMIAN ESCALONA 01/18 Released w/o Limitations [address] [place] [address])(F amily Med Tm B Non-AD BCC) [address] [place] [address])(Fam rishabh Med Tm B Non-AD BCC) OUTPATIENT [id number] Itchy rash on arms and leg, [phone] 1 SHAUN FERNANDEZ 12/21 Released w/o Limitations [address] [place] [address])(F amily Med Tm B Non-AD BCC) [address] [place] [address])([address] [facility]) TELE CONSULT [id number] Notes Entered by: KEEGAN CHAHAL 25 Dec 2017 1416 ------- ------- ------- ------- -- Med Refill - Colanes e - [phone] [id number] GUI Mondragon 12/[address] [place] [address])([address] [facility]) [facility] Medical Group [employer]an ELLSWORTH [place] [place]Fam rishabh Med Tm B Non-AD BCC) OUTPATIENT [id number] *[id number] - annual check up / sleep issues SHAUN FERNANDEZ Reza 02/20 Released w/o Limitations [address] [place] [address] Group Ishan RUBYB [facility])(F amily Med Tm B Non-AD BCC) [address] [place] [address] Ishan RUBYB [facility])(War rior Op Med Cln Tm A Ad) OUTPATIENT [id number] F/U for medicat ions [id number] BOBBY, ALRIA OPENA 07/10 Released w/o Limitations [address] [place] [address] Group Ishan RUBY[place] [facility])(W arrior Op Med Cln Tm A Ad) [address] [place] [address] Group Ishan RUBYB [facility])(War rior Op Med Cln Tm A Ad) TELE CONSULT [id number] Notes Entered by: ST JARAD WALTER 17 Sep 2019 0825 ------- ------- ------- ------- -- Network results Podiatr y 020 SAD DIAMANTE, ALRIA OPENA 09/[address] [place] [address] Group Ishan ELLSWORTH [facility])(W arrior Op Med Cln Tm A Ad) [address] [place] [address] [facility]Sco tt [facility] [place] Fam Res Tm Green) OUTPATIENT [id number] labs and med renewal s in person [phone] ANITA MEJIA 12/07 Released w/o Limitations [address] [place] [address] Ishan RUBYB [facility])(S cott [facility] [place] Fam Res Tm Green) [address] [place] [address] Ishan TUNGB [facility])(Sco tt [facility] [place] [place] Fam Res Tm Green) OUTPATIENT [id number] well woman /pap and check BP in person ATILIO LIGHT 12/21 Released w/o Limitations [address] [place] [address] Group Ishan TUNGB [facility])(S cott [facility] [place] Fam Res Tm Green) [address] [place] [address] Ishan TUNGB [facility])(Sco tt [facility] [place] Fam Res Tm Green) TELE CONSULT [id number] Notes Entered by: Gissell LANE 22 Dec 2020 0935 ------- ------- ------- ------- -- Network results Physica l Therapy 021 ANITA GORE 12/22 Released to Self Care [address] [place] [address] Ishan [facility])(S cott [facility] Fam Res Tm Green) [address] [place] [address] Ishan [facility])(Sco tt [facility] Fam Res Tm Green) TELE CONSULT [id number] Notes Entered by: Georgia LIGHT 23 Dec 2020 1214 ------- ------- ------- ------- -- Lab results ATILIO LIGHT 12/23 Released to Self Care [address] [place] [address])(S cott [facility] Fam Res Tm Green) [address] [place] [address])(Sco tt [facility] Fam Res Tm Green) TELE CONSULT [id number] Notes Entered by: CHELY PABON 19 Jan 2021 0800 ------- ------- ------- ------- -- Network results Physica l Therapy 021 ANITA EASON 01/19 Released to Self Care [address] [place] [address] Ishan [facility])(S cott [facility] [place] Fam Res Tm Green) [address] [place] [address] Ishan [facility])(Sco tt [facility] Fam Res Tm Green) TELE CONSULT [id number] Notes Entered by: JONATHAN IGNACIO 14 Apr 2021 1424 ------- ------- ------- ------- -- Med Renewal Request / eC/ - SREEKANTH Davison 04/14 Referred for Appointment [address] [place] [address] Ishan [facility])(S cott [facility] Fam Res Tm Green) [address] [place] [address] Ishan [facility])(Sco tt [facility] [place] FAMRES Tm Blue) OUTPATIENT [id number] med refill/ f/unAil DELL MORRISSEY 08/19 /2021 Released w/o Limitations [address] [place] [address] Ishan TUNGB ([facility] [place] [facility] FAMRES Tm Blue) [address] [place] [address] Ishan TUNGB ([facility] [place]Sco tt [facility] FAMRES Tm Blue) OUTPATIENT [id number] Anxiety and GERD F/U JACOB MORRISSEYYELLE N 05/26 Released w/o Limitations [address] [place] [address] Ishan TUNGB ([facility] [place]S cott OF FAMRES Tm Blue) [address] [place] [address] Ishan TUNGB [facility])(Sco tt [facility] FAMRES Tm Blue) OUTPATIENT [id number] Virtual Medicat ion F/u [id number] YUNI DELL N 06/24 Released w/o Limitations [address] [place] [address] Ishan TUNGB [facility])(S cott [facility] FAMRES Tm Blue) [address] [place] [address] Ishan TUNGB [facility])(Sco tt [facility] FAMRES Tm Blue) OUTPATIENT [id number] Virtual Medicat ion f/u [phone] YUNI, DELL N 07/27 Released w/o Limitations [address] [place] [address] Ishan TUNGNicolle [facility])(S cott [facility] Tm Blue) [address] [place] [address] Ishan TUNGB [facility])(Sco tt [facility] Fam Res Tm Green) TELE CONSULT [id number] Notes Entered by: CLAIRE KING 03 Jan 2022 1028 ------- ------- ------- ------- -- Rx refill/ Gar / PALMIRA KING 01/03 Other Not Elsewhere Classified [address] [place] [address] Ishan ELLSWORTH [facility])(S cott [facility] [place] Fam Res Tm Green) [address] [place] [address] Ishan TUNGB [facility])(Sco tt [facility] Fam Res Tm Green) OUTPATIENT [id number] F2F Prescri ption Refills /Sciati c LUIS ANTONIO DOUGLAS 02/04 Released w/o Limitations [address] [place] [address] Ishan TUNGB [facility])(S cott [facility] Fam Res Tm Green) [address] [place] [address] Ishan TUNGB [facility])(Sco tt [facility] Fam Res Tm Green) OUTPATIENT [id number] 4 right foot pain and bilater al pain F2F ANITA MEJIA 07/27 Released w/o Limitations [address] [place] [address] Ishan ELLSWORTH ([facility]S cott [facility] Damon) [address] [place] [address] Ishan E[place]SWORTH [facility])(Mto tt [facility]) TELE CONSULT [id number] Notes Entered by: NICOLE NIXON 03 Oct 2022 1505 ------- ------- ------- ------- -- k Results Podiatr y 022 EGW ANITA MEJIA 10/03 Released to Self Care [address] [place] [address] Ishan [place]TH [facility])(S [facility] Damon) [address] [place] [address] Ishan [place] [facility])(Mto [facility]) TELE CONSULT [id number] Notes Entered by: NICOLAS GARZA 05 Oct 2022 1317 ------- ------- ------- ------- -- Network Results Podiatr y 023 HLW ANITA MEJIA 10/05 Released to Self Care [address] [place] [address] Ishan [place] [facility])(S [facility] Damon) [address] [place] [address] Ishan [place] [facility])(Mto tt [facility]) TELE CONSULT [id number] Notes Entered by: Echo LAWTON 25 Jan 2023 0944 ------- ------- ------- ------- -- RX Renewal 6 days /Castro l/ PALMIRA KING 01/25 Referred for Appointment [address] [place] [address] Ishan [facility])(S [facility] [employer]) [id number] [place] [address] [id number] Allergi c rhiniti s, unspeci fied,De pressio n, unspeci fied,He rpesvir al gingivo stomati tis and pharyng otonsil litis,E ncounte r for screeni ng for maligna nt neoplas m of colon,H yperlip idemia, unspeci fied,Re stless legs syndrom e,Pain in unspeci fied knee,Ob structi ve sleep apnea (adult) (pediat laz),En counter for general adult medical examina tion without abnorma l finding s ELIN ECOSTER 05/10 Discharge Disposition: Home or Self Care [id number] [facility] Procedures Combined list of: 1) Procedures from Department of Veterans Affairs facilities [facility], not all VA non-surgical procedures are included; 2) All procedures from the Department of Defense facilities. Procedure Procedure Type Code Date Perfomer Comments Sourc e No data available for this section Ambulato ry Pharmacy Internet Med Svc Qual Nonphys Healthcare Prof Estab Patient Internet Med Svc Qual Nonphys Healthcare Prof Estab Patient [id number] 2017 SHAUN FERNANDEZ [facility] Non-Physician Phone Call To Patient/Provider Brief (5-10min) Non-Physician Phone Call To Patient/Provider Brief (5-10min) 00028 2017 GUI PONCE [facility] Non-Physician Phone Call To Patient/Provider Brief (5-10min) Non-Physician Phone Call To Patient/Provider Brief (5-10min) [id number] 2016 JIGNESH GONZALES [facility] Screening papanicolaou smear; obtaining, preparing and conveyance of cervical or vaginal smear to laboratory 2015 RADHA MARLOW [facility] Non-Physician Phone Call To Patient/Provider Brief (5-10min) Non-Physician Phone Call To Patient/Provider Brief (5-10min) [id number] 2015 RENA BEST [facility] Skin Tag Removal Up To 15 Lesions Skin Tag Removal Up To 15 Lesions 16814 2011 LAWANDA LOVING [facility] Medical Nutrition Therapy Re-a e ment, Intervention Medical Nutrition Therapy Re-assessment, Intervention 40304 2010 JARAD WANG [facility] Medical Nutrition Therapy Initial A e ment, Intervention Medical Nutrition Therapy Initial Assessment, Intervention 42265 2010 JARAD AWNG [facility] Electrocardiogram Electrocardiogram 70400 12/24 KETTY RAINES [facility] Non-Physician Phone Call To Patient/Provider Brief (5-10min) Non-Physician Phone Call To Patient/Provider Brief (5-10min) 04160 2009 PATRIC ALMONTE [facility] Echo For Congenital Defects Transthoracic With M-Mode, Spectral, And Color Flow Echo For Congenital Defects Transthoracic With M-Mode, Spectral, And Color Flow 53928 2009 DIEGO GOOD [facility] Non-Physician Phone Call To Pt/Provider Intermed (11-20 min) Non-Physician Phone Call To Pt/Provider Intermed (11-20 min) 65112 2009 SUZY PATRIC NIELSENGUI [facility] Screening papanicolaou smear; obtaining, preparing and conveyance of cervical or vaginal smear to laboratory 2009 KILEY PERRY [facility] Non-Physician Phone Call To Patient/Provider Brief (5-10min) Non-Physician Phone Call To Patient/Provider Brief (5-10min) 53447 2008 CASANDRA PEDROZA [facility] Medical Nutrition Therapy Group (2 or More Individual(s)) Medical Nutrition Therapy Group (2 or More Individual(s)) 42411 2006 ANA LAURA AVENDANO [facility] Biopsy Endometrial, Without Cervical Dilation Biopsy Endometrial, Without Cervical Dilation 03849 2006 TITA HANNA [facility] Screening papanicolaou smear; obtaining, preparing and conveyance of cervical or vaginal smear to laboratory 2006 UYEN VILLAREAL [facility] Screening papanicolaou smear; obtaining, preparing and conveyance of cervical or vaginal smear to laboratory 2005 ARIES ISLAS [facility] Rapid Antigen Identification Streptococcus Group A Beta Hemolytic Rapid Antigen Identification Streptococcus Group A Beta Hemolytic 47124 2005 LIZZIE DOE Oropharynx Culture Streptococcus Group A Beta Hemolytic Oropharynx Culture Streptococcus Group A Beta Hemolytic [id number] 2005 LIZZIE DOE Cervical Pap Smear Cervical Pap Smear 33750 ATILIO LIGHT [facility] Waiver services; not otherwise specified (NOS) DELL MORRISSEY [facility] HEALTH BEHAVIOR ASSESSMENT, OR RE-ASSESSMENT (IE, HEALTH-FOCUSED CLINICAL INTERVIEW, BEHAVIORAL OBSERVATIONS, CLINICAL DECISION MAKING) 2020 [facility] BRIEF EMOTIONAL/BEHAVIORAL ASSESSMENT (EG, DEPRESSION INVENTORY, ATTENTION-DEFICIT/HY PERACTIVITY DISORDER [ADHD] SCALE), WITH SCORING AND DOCUMENTATION, PER STANDARDIZED INSTRUMENT 2020 [facility]D BRIEF EMOTIONAL/BEHAVIORAL ASSESSMENT (EG, DEPRESSION INVENTORY, ATTENTION-DEFICIT/HY PERACTIVITY DISORDER [ADHD] SCALE), WITH SCORING AND DOCUMENTATION, PER STANDARDIZED INSTRUMENT 2020 [facility] BRIEF EMOTIONAL/BEHAVIORAL ASSESSMENT (EG, DEPRESSION INVENTORY, ATTENTION-DEFICIT/HY PERACTIVITY DISORDER [ADHD] SCALE), WITH SCORING AND DOCUMENTATION, PER STANDARDIZED INSTRUMENT 2020 [facility] CYTOPATHOLOGY, SMEARS, CERVICAL OR VAGINAL, UP TO THREE SMEARS; SCREENING BY MANAGER PROCESS UNDER PHYSICIAN SUPERVISION 2020 DoD ONLINE ASSESS &MANAG SERV PROVIDE,A QUAL NONPHYS HCP TO AN ESTABLISHED PAT/GUARDIAN,NOT ORIGINAT [facility] RELAT ASSESS &MANAG SERV PROVIDE W/IN THE PREV 7 DAYS,USE THE [employer] NETWORK 2017 DoD TELE ASSESS & MGT SRV PROV QUAL NONPHYS HLTH CARE PRO TO EST PAT,PARENT,GUARD NOT ORIG REL ASSESS & MGT SRV PROV W/IN PREV 7 DAYS NOR LEAD ASSESS & MGT SRV/PX W/IN NXT 24 HR/SOON APT;5-10 MIN MED DIS 2017 DoD TELE ASSESS & MGT SRV PROV QUAL NONPHYS HLTH CARE PRO TO EST PAT,PARENT,GUARD NOT ORIG REL ASSESS & MGT SRV PROV W/IN PREV 7 DAYS NOR LEAD ASSESS & MGT SRV/PX W/IN NXT 24 HR/SOON APT;5-10 MIN MED DIS 2016 DoD SCREENING PAPANICOLAOU SMEAR; OBTAINING, PREPARING AND CONVEYANCE OF CERVICAL OR VAGINAL SMEAR TO LABORATORY 2015 DoD TELE ASSESS & MGT SRV PROV QUAL NONPHYS HLTH CARE PRO TO EST PAT,PARENT,GUARD NOT ORIG REL ASSESS & MGT SRV PROV W/IN PREV 7 DAYS NOR LEAD ASSESS & MGT SRV/PX W/IN NXT 24 HR/SOON APT;5-10 MIN MED DIS 2015 DoD REMOVAL OF SKIN TAGS, MULTIPLE FIBROCUTANEOUS TAGS, ANY AREA; UP TO AND INCLUDING 15 LESIONS 2011 DoD MEDICAL NUTRITION THERAPY; RE-ASSESSMENT AND INTERVENTION, INDIVIDUAL, [id number] WITH THE PATIENT, EACH 15 MINUTES 2010 DoD MEDICAL NUTRITION THERAPY; INITIAL ASSESSMENT AND INTERVENTION, INDIVIDUAL, [id number] WITH THE PATIENT, EACH 15 MINUTES 2010 DoD ELECTROCARDIOGRAM, ROUTINE ECG WITH AT LEAST 12 LEADS; WITH INTERPRETATION AND REPORT 2010 DoD TELE ASSESS & MGT SRV PROV QUAL NONPHYS HLTH CARE PRO TO EST PAT,PARENT,GUARD NOT ORIG REL ASSESS & MGT SRV PROV W/IN PREV 7 DAYS NOR LEAD ASSESS & MGT SRV/PX W/IN NXT 24 HR/SOON APT;5-10 MIN MED DIS 2009 DoD ECHOCARDIOGRAPHY,TRA NSTHORACIC,REAL-TIME W IMAGE DOCUMENTATION (2D),INCLUDES M-MODE RECORDING,WHEN PERFORMED,COMPLETE,W ITH SPECTRAL DOPPLER ECHOCARDIOGRAPHY,AND W COLOR FLOW DOPPLER ECHOCARDIOGRAPHY 2009 DoD TELE ASSESS & MGT SRV PROV QUAL NONPHYS HLTH CARE PRO TO EST PAT,PARENT,GUARD NOT ORIG REL ASSESS & MGT SRV PROV W/IN PREV 7 DAYS NOR LEAD ASSESS & MGT SRV/PX W/IN NXT 24H/SOON APT; 11-20 MIN MED DIS 2009 DoD SCREENING PAPANICOLAOU SMEAR; OBTAINING, PREPARING AND CONVEYANCE OF CERVICAL OR VAGINAL SMEAR TO LABORATORY 2009 DoD TELE ASSESS & MGT SRV PROV QUAL NONPHYS HLTH CARE PRO TO EST PAT,PARENT,GUARD NOT ORIG REL ASSESS & MGT SRV PROV W/IN PREV 7 DAYS NOR LEAD ASSESS & MGT SRV/PX W/IN NXT 24 HR/SOON APT;5-10 MIN MED DIS 2008 DoD MEDICAL NUTRITION THERAPY; GROUP (2 OR MORE INDIVIDUAL(S)), EACH 30 MINUTES 2006 DoD ENDOMETRIAL SAMPLING (BIOPSY) WITH OR WITHOUT ENDOCERVICAL SAMPLING (BIOPSY), WITHOUT CERVICAL DILATION, ANY METHOD (SEPARATE PROCEDURE) 2006 DoD SCREENING PAPANICOLAOU SMEAR; OBTAINING, PREPARING AND CONVEYANCE OF CERVICAL OR VAGINAL SMEAR TO LABORATORY 2006 DoD SCREENING PAPANICOLAOU SMEAR; OBTAINING, PREPARING AND CONVEYANCE OF CERVICAL OR VAGINAL SMEAR TO LABORATORY 2005 DoD CULTURE, PRESUMPTIVE, PATHOGENIC ORGANISMS, SCREENING ONLY 2005 DoD UNLISTED SPECIAL SERVICE, PROCEDURE OR REPORT 2004 DoD SCREENING PAPANICOLAOU SMEAR; OBTAINING, PREPARING AND CONVEYANCE OF CERVICAL OR VAGINAL SMEAR TO LABORATORY 2003 DoD SCREENING PAPANICOLAOU SMEAR; OBTAINING, PREPARING AND CONVEYANCE OF CERVICAL OR VAGINAL SMEAR TO LABORATORY 2002 [facility] Social History Combined list of available smoking, tobacco, and other social history from Department of Defense and Veterans Affairs facilities. Social History Type Response Date Comment Marques kumar Sex Representation Female (finding) 06/28/2021 Unknown Organization Tobacco Cigarette use: Never-cigarette user. Other Tobacco use: Never-other tobacco user (not cigarettes). Ambulatory Pharmacy Sexual Orientation Ambula tory Pharmacy Gender identity Ambulator y Pharmacy This section is an empty social history section. [facility] Assessment and Plan Combined list of future care activities from Department of Defense and Veterans Affairs facilities (e.g., assessment and plan notes, appointments, orders, and referrals). Additional future care activities may be listed in the Plan of Care section. Result Assessment and Plan Date Source Assessment and Plan Extracted from:Title : [facility] [place] annual Author: ELIN CAMARILLO MD Date: 05/10/24 1. W ell adult Preventative Medicine / HCM visit with no emergent concerns. ----- VACCINES: - Advised annual flu vaccine - Advised COVID-19 vaccine ----- - Cervical Cancer Screening: U TD c o testing NILM, neg Nov 2020) - Breast C ancer Screening: U TD ( Nov 2023) - L cj Cancer Screening: N/A - C olon Cancer Screening: DUE ( unable to find record of previous screening) ----- BONE DENSITY: N /A w ill be due at 64 yo ----- SEXUAL HEALTH: ORDERED [X] HIV (age 1 3-75; recommendation for one-time screening) [X] Hepatitis B (age > 1 8;recommendation for one-time s creening) [X] H epatitis C (age 1 8-79; recommendation for one-time s creening) ----- METABOLIC: - L ipid screening: D UE - D M screening: DUE ----- SUBSTANCE USE: - T obacco use: D enies - Alcohol use: Denies - Illicit drug use: Denies ----- FOLLOW UP: - Annually Ordered: Hemoglobin A1c Hepatitis C Antibody HIV-1/O/2 Lipid Panel 2. P ain of bilateral knee joints Chronic, most consistent with arthritic pain given normal physical exam and lack of injury - weight bearing x-rays obtained - if x-rays show arthritis would recommend Euflexxa injections Ordered: XR Knee Weight Bearing 3+ Left XR Knee Weight Bearing 3+ Right 3. O bstructive sleep apnea syndrome Chronic, but doesnt use a CPAP - referral to sleep medicine Ordered: Referral Request 2.0 - DoD 4. A llergic rhinitis Chronic, controlled - refilled zyrtec 5. D epressive disorder Chronic, poorly controlled. Denies SI/HI - increasing sertraline to 150mg daily - follow up in 6-8 weeks - sister is taking venlafaxine. If increased sertraline doesnt help her sx, would consider switching to venlafaxine. Ordered: sertraline(sertraline 150 mg oral capsule), 1 cap(s), Oral, Daily, # 90 cap(s), 3 total refill(s), Maintenance, 1 cap(s) Oral Daily, Pharmacy: [facility] [Not filled] 6. H yperlipidemia Chronic, controlled - refilled statin - checking lipid panel 7. R estless legs Chronic, controlled - refilled ropinirole 8. E ncounter for screening for malignant neoplasm of colon Due for colon cancer screening per patient - referral to GI Ordered: Referral Request 2.0 - DoD 9. O ral herpes simplex infection Chronic, on ppx, controlled - refilled valtrex 10. Elevated Blood Pressure - no diagnosis of HTN, mildly above goal per JNC8 today - if continues to be elevated at follow up would recommend home BP monitoring and possible initiating medication Orders: cetirizine(cetirizine 10 mg oral tablet), 1 tab(s), Oral, Daily, 90 tab(s), # 90 tab(s), 3 total refill(s), Maintenance, 1 tab(s) Oral Daily,Instr:90 tab(s), Pharmacy: [facility] [Not filled] rOPINIRole(rOPINIRole 1 mg oral tablet), 1 tab(s), Oral, Daily, 90 tab(s), # 90 tab(s), 3 total refill(s), Maintenance, 1 tab(s) Oral Daily,Instr:90 tab(s), Pharmacy: [facility] [Not filled] rosuvastatin(rosuvastatin 10 mg oral tablet), 1 tab(s), Oral, Daily, 90 tab(s), # 90 tab(s), 3 total refill(s), Maintenance, 1 tab(s) Oral Daily,Instr:90 tab(s), Pharmacy: [facility] [Not filled] valACYclovir(valACYclovir 500 mg oral tablet), 1 tab(s), Oral, Daily, 90 tab(s), # 90 tab(s), 3 total refill(s), Maintenance, 1 tab(s) Oral Daily,Instr:90 tab(s), Pharmacy: [facility], Viral prophylaxis [Not filled] Capt Elin Camarillo DO [facility] Medicine Faculty Physician [address] [place] [address], [facility] Ishan ELLSWORTH Extracted from:Title: Family Medicine Note- Sleep apnea, diarrhea Author: JOE MOSLEY MD Date: 04/17/23 1. C hronic diarrhea of unknown origin Acute, u ncontrolled. HPI and PE suggestive of IBS. Kendall IV criteria c/w diagnosis. No associated alarm features. No e/o medication side effect. Afebrile and HDS. Recommendations: - Referral: GI referal due to chornic hx w/ unexplained origin f or further management - Discussed dietary modifications to reduce consumption of gas-producing foods and lactose avoidance - Explained that exercise can help with symptoms - Explained that IBS can be a frustrating illness as it can be recurrent and resistant to therapy - G iven diarrhea predominant IBS: Will continue immodium -- I nformed patient that Imodium w ill help with frequency of stools but not abdominal pain - Given associated Depression: continue sertraline 100mg qday - Discussed RTC vs ER precautions Ordered: Referral Request 2.0 2. O bstructive sleep apnea syndrome Acute, u ncontrolled. HPI and PE suggestive of NEGIN. STOP-BANG score: 4 (Intermediate Risk for NEGIN). No e/o central disorders of hyper-somnolence, circadian rhythm sleep-wake disorders, neurologic disorders, psychiatric disorders, or medication side effects. Recommendations: -Referral: Sleep study since last 1 was 4 years ago, states that she needed cpap then. -Discussed weight loss and exercise -Discussed sleep positioning: lateral recumbent vs supine positioning may improve sxs -Reviewed medications: no concurrent use of benzodiazepines/barbiturates/ antiepileptic drugs/sedating depressants/antihistamines/op iates Ordered: Referral Request 2.0 Orders: cetirizine(cetirizine 10 mg oral tablet), 1 tab(s), Oral, Daily, 90 tab(s), # 90 tab(s), 3 total refill(s), Maintenance, 1 tab(s) Oral Daily,Instr:90 tab(s), Pharmacy: [facility] [Not filled] famotidine(famotidine 20 mg oral tablet), 1 tab(s), Oral, Daily, 90 tab(s), # 90 tab(s), 3 total refill(s), Maintenance, 1 tab(s) Oral Daily,Instr:90 tab(s), Pharmacy: [facility] [Not filled] rOPINIRole(rOPINIRole 1 mg oral tablet), 1 tab(s), Oral, Daily, 90 tab(s), # 90 tab(s), 3 total refill(s), Maintenance, 1 tab(s) Oral Daily,Instr:90 tab(s), Pharmacy: [facility] [Not filled] rosuvastatin(rosuvastatin 10 mg oral tablet), 1 tab(s), Oral, Daily, 90 tab(s), # 90 tab(s), 3 total refill(s), Maintenance, 1 tab(s) Oral Daily,Instr:90 tab(s), Pharmacy: [facility] [Not filled] sertraline(sertraline 100 mg oral tablet), 1 tab(s), Oral, Daily, 90 tab(s), # 90 tab(s), 3 total refill(s), Maintenance, 1 tab(s) Oral Daily,Instr:90 tab(s), Pharmacy: [facility] [Not filled] valACYclovir(valACYclovir 500 mg oral tablet), 1 tab(s), Oral, Daily, 90 tab(s), # 90 tab(s), 3 total refill(s), Maintenance, 1 tab(s) Oral Daily,Instr:90 tab(s), Pharmacy: [facility] [Not filled] MG Mammo Beck Screening Bilateral Capt Tawanna Faulkner), [facility] Human Resources Executive Assistant, PGY-1 [employer] Addendum by DENISE HOUSE DO on April 18, 2023 14:51:35 CDT I certify that I was physically present with the resident and patient. I have discussed the diagnosis and treatment plan with the resident [id number]. I have reviewed the note and concur with the findings, assessment, and plan. Follow up as listed. All labs/imaging/consults to be followed by the ordering provider. Capt Maninder, [facility], Staff Physician Extracted from:Title: [facility] [place] follow-up Author: VICKI LAMB MD Date: 03/23/23 1. F all Mechanical in nature, resolved L eye stitches removed without complication No evidence of concussion Plan: Manage obesity Patient to follow-up in 1 month for physical - ordering labs Advised on safety and return p recautions 2. E levated blood pressure Labs ordered ahead of planned physical Patient denies Hx HTN, not on HTN meds Re-measure and discuss meds if elevated on next visit Ordered: Basic Metabolic Panel Microalbumin Panel, Urine 3. M orbid obesity Plan to discuss lifestyle modifications in depth at upcoming physical If A1C results with diabetes most likely BMI > 40 however pt's brother of hemochromatosis - monitor 4. S kin lesion Lesions on arms and dorsum foot likely mosquito bites, no signs infection Advised to avoid touching/itching If pruritis develops, recommended OTC hydrocortisone cream Advised on avoiding neosporin Mupirocin not indicated at this time Orders [id number]|2025-01-10 08:15:00|2025-01-10 08:15:00|XMS_ITS|BKG DAEMON|External Medical Summaries|[id number]|" Clinical Summary Created on: January 10, 2025 Tawana Chaparro : 1960 Sex: Female Author Organization [facility] Address [address] [place] [address] Care Team Providers Care Duty Engineer Name Role Phone Unavailable Primary Care Provider [...] Vaccines (1 of 2) 11/15/2009 COVID-19 Vaccine ( - 2023-2 5 season) 2024 Dexa Scan [...]
--- OUTSIDE RECORDS SUMMARY | 2025-01-10 08:16 | XMS_ITS | Clinical Summary ---
Author Organization [facility] Address [address] [place] [address] Phone Care Team Providers Care Dental Assistant Medical Assistant Name Role Phone Provider, None Primary Care [...] age to complete this topic Care Teams Dental Assistant Medical Assistant Relationship Specialty Start Date End Date Provider, None [place] PCP - General 12/01/16
--- OUTSIDE RECORDS SUMMARY | 2025-01-10 08:16 | XMS_ITS | Data Portability ---
Author Organization [facility] (11[facility] Address [address] [facility] [address] [place] [address] Team Prov[address] Care [address] Project Manager Name Role Phone SHAUN JOSHI Referring Provider [...] Time 06/19/2018 Sleep Study completed Lamine Saha [facility] [place]20/20 18 10:31:33 Imaging Results None recorded. Procedure Notes None recorded. Medical Equipment None Reported. Vitals Date Recorded Body height Body mass index (BMI) Body weight Provider Name and Address Organization Details Last Updated DateTime 06/19/2018 165.1 cm 46.6 kg/m2 441392.86 g Lamine Saha [facility] 06/20/2018 10:19:29 Social History Question Answer Notes LastModified by Organizat ion Details LastModified Time Describe Your Sleep Problem Snores A Lot, Says She Could peel [place] With Her Snoring, [...] SNOMED-CT Code Diagnosis ICD10 Code Diagnosis Note [address] [address] [facility] [place], [facility] [phone]) [phone] [facility] [address] [place] [address] 06/19/2018 20:56:01 06/20/2018 10:17:53 Obstructive sleep apnea of adult 6097344586 103 G47.33 Health Concerns Section Related Observation LastModified by Organization Detai ls LastModified Time None Recorded Concern Status LastModified by Organization Details LastModified Time None Recorded Advance Directives Directive None Recorded Payers Insurance Date Sequence Insurance Name Policy Number Policy Marks Covered Member ID Marks Member ID Guarantor Name 06/29/2018 1 [facility] () Tawana Chaparro [id number] Tawana Chaparro OBGyn Episode No OBEpisode recorded.
== END 2025-01-10 08:10 | disposition home or self-care (01) ==
PROVIDERS: PCP Nurse Practitioner Family; Visit Provider Nurse Practitioner Family
DX: M85.89 Other specified disorders of bone density and structure, multiple sites (principal); Z78.0 Asymptomatic menopausal state
CPT/HCPCS: 77080

== ENCOUNTER 2025-02-25 15:53 | Outpatient (CLI) | payer MEDICARE, OTHER, SELFPAY ==
--- NOTE | ~2025-02-25 | MR_ITS ---
MRI of the right knee Clinical history: Pain Technique: Coronal proton density and proton density-weighted images, sagittal proton-density and T2 fat-sat images, and axial proton-density fat-saturated images were acquired. Findings: Anterior and posterior cruciate ligaments are intact. Medial collateral ligament and the la teral collateral ligament, as are intact. Popliteus tendon is intact. There is complex tearing of the body segment of the medial meniscus. No lateral meniscal tear seen. There is subchondral insufficiency fracture versus stress fracture at the medial tibial plateau regio n with amorphous surrounding marrow edema. There is high-grade chondromalacia over the patellar apex. There is patchy moderate to high-grade chondromalacia of the femoral trochlea. There is mild diffuse chondral thinning of the medial compartment. Extensor mechanism is intact. Small joint effusion present. No significant Lowery's cyst. Impression: Subchondral insufficiency fracture versus stress fracture the medial tibial plateau, with surrounding amorphous marrow edema. Complex tearing of the body segment of the medial meniscus. 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 Reviewed, dictated and finalized at [facility]. Impression: Subchondral insufficiency fracture versus stress fracture the medial tibial khurram teau, with surrounding amorphous marrow edema. Complex tearing of the body segment of the medial meniscus. 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
== END 2025-02-25 15:54 | disposition home or self-care (01) ==
LOC: MICIMG 15:54
PROVIDERS: PCP Orthopaedic Surgery; Visit Provider Orthopaedic Surgery
DX: S83.231A Complex tear of medial meniscus, current injury, right knee, initial encounter (principal); M94.261 Chondromalacia, right knee; X58.XXXA Exposure to other specified factors, initial encounter
CPT/HCPCS: 73721

== ENCOUNTER 2025-03-05 09:01 | Outpatient (CLI) | payer MEDICARE, OTHER, SELFPAY ==
--- OUTSIDE RECORDS SUMMARY | 2025-03-05 09:08 | XMS_ITS | Clinical Summary ---
Author Organization [facility] Address [address] [place] [address] Care Team Providers Care Substation Designer Name Role Phone Unavailable Primary Care Provider [...]
--- OUTSIDE RECORDS SUMMARY | 2025-03-05 09:08 | XMS_ITS | Patient Health Record ---
Author Organization [facility] Address [address] [place], [place] [address] Care Team Providers Care Labor Operator Name Role Phone MAXIMILIAN MONTERO Unavailable [phone] Reason For Referral No Information Medications Medication SIG (Take, Route, Frequency, Duration) Notes Start Date End Date Status Medrol Dosepak ORAL Medrol DosepakOr iginal MedicationMedrol Dosepak *Reorder from [facility] for eRx and Interaction Alerts* 09/09/2019 Active calcium carbonate 400 MG / cholecalciferol 133 UNT / magnesium oxide 167 MG Oral Tablet ORAL calcium carbonate 400 MG / cholecalciferol 133 UNT / magnesium oxide 167 MG Oral TabletOriginal Medicationcalcium carbonate 400 MG / cholecalciferol 133 UNT / magnesium oxide 167 MG Oral Tablet *Reorder from Ne 09/10/2019 Active Lysine 1000 MG Oral Tablet ORAL lysine 1000 MG Oral TabletOriginal Medicationlysine 1000 MG Oral Tablet *Reorder from [facility] for eRx and Interaction Alerts* 09/10/2019 Active Plan Of Treatment No Information Insurance Providers Payer Name Payer Address Payer Phone Subscriber Number Group Number Insured Name Patient Relationship to Insured Coverage Start Date Coverage End Date [facility] [address] [place] [phone] [id number] ROSENDO CLEMONS JR Spouse - patient is the spouse of the insured
--- OUTSIDE RECORDS SUMMARY | 2025-03-05 09:09 | XMS_ITS | Data Portability ---
Author Organization [facility]11[facility] Address [address] [facility] [address] [place] [address] Care Team Providers Care Hammer Operator Name Role Phone SHAUN JOSHI Referring Provider [...] Time 06/19/2018 Sleep Study completed Lamine Saha [facility] [place] 06/20/20 18 10:31:33 Imaging Results None recorded. Procedure Notes None recorded. Medical Equipment None Reported. Vitals Date Recorded Body height Body mass index (BMI) Body weight Provider Name and Address Organization Details Last Updated DateTime 06/19/2018 165.1 cm 46.6 kg/m2 121520.86 g Lamine Saha [facility] [place] 06/20/2018 10:19:29 Social History Question Answer Notes LastModified by Organizat ion Details LastModified Time Describe Your Sleep Problem Snores A Lot, Says She Could peel [place] With Her Snoring, [...] SNOMED-CT Code Diagnosis ICD10 Code Diagnosis Note 34[address] [address] [facility] [place], [facility] (20) [phone] [facility] [address] [place] [address] 06/19/2018 20:56:01 06/20/2018 10:17:53 Obstructive sleep apnea of adult [id number] 103 G47.33 Health Concerns Section Related Observation LastModified by Organization Detai ls LastModified Time None Recorded Concern Status LastModified by Organization Details LastModified Time None Recorded Advance Directives Directive None Recorded Payers Insurance Date Sequence Insurance Name Policy Number Policy Marks Covered Member ID Marks Member ID Guarantor Name 06/29/2018 1 [facility] () Tawana Chaparro [id number] Tawana Chaparro OBGyn Episode No OBEpisode recorded.
--- OUTSIDE RECORDS SUMMARY | 2025-03-05 09:09 | XMS_ITS | Clinical Summary ---
Author Organization [facility] Address [address] [place] [address] Phone Care Team Providers Care Development Executive Name Role Phone Provider, None Primary Care [...] 7:04 PM CDT Height 165.1 cm (5' 5) 12/01/2016 7:04 PM CDT Body Mass Index [...] age to complete this topic Care Teams Development Executive Relationship Specialty Start Date End Date Provider, None [place] PCP - General 12/01/16
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
[2025-03-27 11:46] VITALS: BMI 45.7
== END 2025-03-06 06:59 | disposition home or self-care (01) ==
LOC: ANHCSM 09:02
PROVIDERS: PCP Nurse Practitioner Family; Visit Provider Nurse Practitioner Family
DX: G47.33 Obstructive sleep apnea (adult) (pediatric) (principal); G25.81 Restless legs syndrome
CPT/HCPCS: 95811

== ENCOUNTER 2025-03-25 08:00 | Outpatient (CLI) | payer MEDICARE, OTHER, SELFPAY ==
--- OUTSIDE RECORDS SUMMARY | 2025-03-25 08:12 | XMS_ITS | Continuity of Care Document ---
Author Name [facility] Organization [facility] Care Team Providers Care Associate Editor Name Role Phone [facility] Unavailable Unavailable Problems Combined list of problems from Department of Defense and Veterans Affairs facilities. It does not include entries that were removed or entered in error. Problem Status Onset Date Problem Type Date of Resolution Comments Source Oral herpes simplex infection Active 024 Diagnosis 1213S-Py-F-375 [facility] Encounter for screening for malignant neoplasm of colon Active 024 Diagnosis 8671Z-Rn-R-375 [facility] Allergic rhinitis Active 024 Diagnosis 7207L-Dw-S-375 [facility] Depressive disorder Active 024 Diagnosis 3556E-Cm-P-375 [facility] Hyperlipidemia Active 024 Diagnosis 6544N-Wb-Y-375 [facility] Restless legs Active 024 Diagnosis 0087H-Lz-Y-375 [facility] Obstructive sleep apnea syndrome Active 024 Diagnosis 4122E-Uv-Z-375 [facility] Pain of bilateral knee joints Active 024 Diagnosis 4090F-Ub-T-375 [facility] Well adult Active 024 Diagnosis 2343D-Rh-D-375 [facility] Allergic rhinitis Active Condition 0547H-Qz-D-375 [facility] Chronic diarrhea of unknown origin Active Condition 2109V-Ae-S-375 [facility] Depressive disorder Active Condition 3689O-Gm-C-375 [facility] Elevated blood pressure Active Condition 7695L-Kc-J-375 [facility] FH: Cardiovascular disease1 Active Condition Outside Source Comment: ASA 81mg #90 1po qd x3rf ordered in [facility] 4416I-Ns-L-375 [facility] Hip pain Active Condition 6122F-Ra-W-37 5 [facility] Hyperlipidemia Active Condition 6130C-A f-C-375 [facility] Internal hemorrhoids Active Condition 4074J-Rm-S-37 5 Th [facility] Morbid obesity Active Condition Unknown Organization Obesity Active Condition 2154Y-Gm-O-375 [facility] Obstructive sleep apnea syndrome Active Condition 9830C-Kf-M-375 [facility] Plantar fasciitis Active Condition 7130B-Su-N-375 [facility] Restless legs Active Condition 6130C-Af [...] menopause. Given pt's age will refer to export traffic department manager for assessment for an EMB. Will also [...] 5 2024 60.0 Ambulat ory Pharmac y celecoxib 200 mg capsule = 1 cap(s), Oral, Daily, # 30 EA, 1 total refill(s ), Soft Stop Oral (given by mouth) Ordered 5 2024 30.0 Ambulat ory Pharmac y Centrum Silver Ultra Women's Oral, Daily, 0 total refill(s ), Maintena nce Oral (given by mouth) Ordered 2022 6130C-A f-C-375 [facility] CETIRIZINE (U/D) 10 MG ORAL TAB May cause drowsine ss.Obtai n advice for OTCs. 04/16/2024 [id number] 3 2023 90 [facility] [place] cetirizine 10 mg oral tablet 1 tab(s), Oral, Daily, 90 tab(s), # 90 tab(s), 3 total refill(s ), [facility] Oral (given by mouth) Ordered 5 2023 90.0 6130C-A f-C-375 Th [facility] cetirizine 10 mg oral tablet 90 tab(s), 0 total refill(s ), Soft Stop Discont inued 04/17/20232022 6130C-A f-C-375 Th [facility] cetirizine 10 mg oral tablet 1 tab(s), Oral, Daily, 90 tab(s), # 90 tab(s), 3 total refill(s ), [facility], Pharmacy : [facility] Oral (given by mouth) Discont inued 05/10/2024 4 2023 90.0 6130C-A f-C-375 Th [employer] famotidine 20 mg oral tablet TAKE [...] ), Soft Stop Discont inued 04/17/20232022 6130C-A SendTask-C-375 Th [facility] famotidine 20 mg oral tablet 1 tab(s), Oral, Daily, 90 tab(s), # 90 tab(s), 3 total refill(s ), [facility], Pharmacy : [facility] Oral (given by mouth) Discont inued 05/10/2024 4 2023 90.0 6130C-A f-C-375 Th [facility] FLUCELVAX QUAD (flu vaccine quad (4 years and older)cell derived/PF) , 60MCG/.5ML FLUCELVA [...] Discont inued 05/10/20242023 No Facilit y Access predniSONE 10 mg tablet See Instruct ions, Oral, # 20 EA, 0 total refill(s ), Soft Stop Oral (given by mouth) Ordered 5 2024 20.0 Ambulat ory Pharmac y rOPINIRole 1 MG ORAL TAB May cause drowsine ss.Take with food/mil k.Take or use exactly as directed . 04/16/2024 [id number] 3 2023 90 [employer] [place] rOPINIRole 1 mg oral tablet rOPINIRo le 1 mg oral tablet Start Date: 04/15/21 Stop Date: 05/10/24 Status: Disconti nued Repeat number: 1 Discont inued 05/10/20242023 No Facilit y Access rOPINIRole 1 mg oral tablet 1 tab(s), Oral, Daily, 90 tab(s), # 90 tab(s), 3 total refill(s ), Jone mace, Pharmacy : [facility] Oral (given by mouth) Ordered 5 2023 90.0 6130C-A f-C-375 Th [facility] rOPINIRole 1 mg oral tablet 90 tab(s), 0 total refill(s ), Soft Stop Discont inued 04/17/20232022 61C-A -C-375 Th [facility] rOPINIRole 1 mg oral tablet 1 tab(s), Oral, Daily, 90 tab(s), # 90 tab(s), 3 total refill(s ), [facility], Pharmacy : [facility] Oral (given by mouth) Discont inued 05/10/2024 4 2023 90.0 6130CA -C-375 Th [facility] rosuvastati n 10 mg oral tablet rosuvast atin 10 mg oral tablet Start Date: 12/11/20 Stop Date: 05/10/24 Status: Disconti adriana Repeat number: 1 Discont inued 05/10/20242023 No Facilit y Access rosuvastati n 10 mg oral tablet 1 tab(s), Oral, Daily, 90 tab(s), # 90 tab(s), 3 total refill(s ), [facility], Pharmacy : [facility] Oral (given by mouth) Ordered 5 2023 90.0 6130C-A -C-375 Th [facility] rosuvastati n 10 mg oral tablet 90 tab(s), 0 total refill(s ), Soft Stop Discont inued 04/17/20232022 6130C-A -C-375 Th [facility]- [facility] rosuvastati n 10 mg oral tablet 1 tab(s), Oral, Daily, 90 tab(s), # 90 tab(s), 3 total refill(s ), [facility], Pharmacy : [facility] Oral (given by mouth) Discont inued 05/10/2024 4 2023 90.0 6130C-A -C-375 Th [facility]- [facility] sertraline (U/D) 100 MG ORAL TAB May cause drowsine ss.Take or use exactly as directed .Obtain advice for OTCs. 04/16/2024 [id number] [address] [place] [address] [facility] [place] sertraline 100 mg oral tablet 1 tab(s), Oral, Daily, take with the 50mg tablet to be a total of 150mg daily, # 90 tab(s), 3 total refill(s ), [facility], Pharmacy : [facility] Oral (given by mouth) Ordered 5 2023 90.0 6130C-A f-C-375 [facility] sertraline 100 mg oral tablet sertrali ne 100 mg oral tablet Start Date: 05/27/21 Stop Date: 05/10/24 Status: Disconti adriana Repeat number: 1 Discont inued 05/10/20242023 No Facilit y Access sertraline 100 mg oral tablet 1 tab(s), Oral, Daily, 90 tab(s), # 90 tab(s), 3 total refill(s ), [facility], Pharmacy : [facility] Oral (given by mouth) Discont inued 05/10/20242023 90.0 6130C-A SendTask-C-375 Th [facility] sertraline 100 mg oral tablet 90 tab(s), 0 total refill(s ), Soft Stop Discont inued 04/17/20232022 6130C-A f-C-375 Th [facility] sertraline 100 mg oral tablet 1 tab(s), Oral, Daily, 90 tab(s), # 90 tab(s), 3 total refill(s ), [facility], Pharmacy : [facility] Oral (given by mouth) Discont inued 05/10/2024 2023 90.0 6130C-A f-C-375 Th [employer] sertraline 150 mg oral capsule 1 cap(s), Oral, Daily, # 90 cap(s), 3 total refill(s ), [facility], Pharmacy : [facility] Oral (given by mouth) Discont inued 05/10/20242023 90.0 6130C-A f-C-375 Th [facility] sertraline 50 mg oral tablet 1 tab(s), Oral, Daily, take with 100mg tablet to be a total of 150mg daliyy, # 90 tab(s), 3 total refill(s ), [facility] Oral (given by mouth) Ordered 5 2023 90.0 6130C-A -C-375 Th [facility] sertraline 50 mg oral tablet sertrali [...] # 90 tab(s), 3 total refill(s ), [facility], Pharmacy : [facility] , Viral prophyla xis Oral (given by mouth) Ordered 5 2023 90.0 6130C-A -C-375 Th [facility] valACYclovi r 500 mg oral tablet 90 tab(s), 0 total refill(s ), Soft Stop Discont inued 04/17/[address]23[address] [place] [address]-C-375 [facility] valACYclovi r 500 mg oral tablet 1 tab(s), Oral, Daily, 90 tab(s), # 90 tab(s), 3 total refill(s ), [facility], Pharmacy : [facility] Oral (given by mouth) Discont inued 05/10/2024 4 2023 90.0 6130C-A -C-375 Th [facility] Allergies, Adverse Reactions, Alerts Combined list of allergies from Department of Defense and Veterans Affairs facilities. It does not include entries that were removed or entered in error. Substance Category Reaction Severity Reaction type Status Date Reported Comments Source No Known Allergies Drug allergy (disorder) active 09/18/2007 [facility] [place] Immunizations Combined list of available immunizations from the Department of Defense and Veterans Affairs facilities. Immunization Series Date Given Administered By Site Reaction Lot Number CVX Code Drug Furnace Combustion Tester Status Comments Source tetanus toxoid, reduced diphtheria toxoid, and acellular pertu is vaccine, adsorbed 1 2021 Unknown, Provider [id number] [facility] ([place]) complet ed tetanus toxoid, reduced diphtheri a toxoid, and acellular pertussis vaccine, adsorbed DoD COVID-19, mRNA, LNP-S, PF, 30 mcg/0.3 mL dose, winnie-sucrose 2021 DANYELL, [employer] [place] (PFR) Not Given COVID-19, mRNA, LNP-S, PF, 30 mcg/0.3 mL dose, winnie-sucr ose DoD SARS-COV-2 (COVID-19) vaccine, mRNA, spike protein, LNP, preservative free, 30 mcg/0.3mL dose 3 2021 Unknown, Provider [id number] [place] [employer] (PFR) complet ed SARS-COV- 2 (COVID-19 ) vaccine, mRNA, spike protein, LNP, preservat shukri free, 30 mcg/0.3mL dose DoD influenza, injectable, quadrivalent- pf 2020 zzLef t Arm [id number] [facility] [place] [facility] influenza , injectabl e, quadrival ent-pf 06/10/21 Given Ambulat ory Pharmac y Influenza, injectable, quadrivalent, preservative free 1 2020 Unknown, Provider [id number] 150 [facility] ([place]) complet ed Influenza , injectabl e, quadrival ent, preservat shukri free DoD COVID Vaccine Pfizer 2020 [id number] [employer] complet ed COVID Vaccine Pfizer 12/14/20 Given Ambulat ory Pharmac y SARS-COV-2 (COVID-19) vaccine, mRNA, spike protein, LNP, preservative free, 30 mcg/0.3mL dose 2 2020 Unknown, Provider [id number] 208 [employer] Inc (PFR) complet ed SARS-COV- 2 (COVID-19 ) vaccine, mRNA, spike protein, LNP, preservat shukri free, 30 mcg/0.3mL dose DoD COVID Vaccine Pfizer 2020 [id number] [employer] complet ed COVID Vaccine Pfizer 11/23/20 Given Ambulat ory Pharmac y SARS-COV-2 (COVID-19) vaccine, mRNA, spike protein, LNP, preservative free, 30 mcg/0.3mL dose 1 2020 Unknown, Provider [id number] 208 [employer] Inc (PFR) complet ed SARS-COV- 2 (COVID-19 ) vaccine, mRNA, spike protein, LNP, preservat shukri free, 30 mcg/0.3mL dose DoD zoster vaccine, inactivated 2019 zzLef t Arm [id number] 187 [employer] complet ed zoster vaccine, inactivat ed 08/12/20 Given Ambulat ory Pharmac y zoster vaccine recombinant 1 2019 Unknown, Provider [id number] 187 [place] ([place] complet ed zoster vaccine recombina nt DoD Influenza, injectable, MDCK, preservative free, quadrivalent 2019 ALUL, () Not Given Influenza , injectabl e, MDCK, preservat shukri free, quadrival ent DoD zoster vaccine, inactivated 2019 zzLef t Arm [id number] 187 [employer] complet ed zoster vaccine, inactivat ed 05/21/20 Given Ambulat ory Pharmac y zoster vaccine recombinant 1 2019 Unknown, Provider [id number] 187 [employer] ([place]) complet ed zoster vaccine recombina nt [...] 15-29 Severe decrease <15 Kidney failure 0055A-3 [facility] NanostellarSELECT MEDICAL [facility], BEACHWOODPaypersocial Ltd Chemistry AGAP 11.00 0.00 - 15.00 04/07 N 0055A-[address] [place], [place] [address] Chemistry Chloride 112 mmol/L 98 - 107 04/07 H 0055A-[address] [place], [place] [address] Chemistry Glucose Lvl 103 mg/dL 74 - 99 04/07 H 0055A-[address] [place], [place] [address] Chemistry BUN 15 mg/dL 7 - 20 04/07 N 0055A-[address] [place], [place] [address] Chemistry Potassium Lvl 4.6 mmol/L 3.5 - 5.1 04/07 N 0055A-[address] [place], [place] [address] Chemistry CO2 26 mmol/L 22 - 29 04/07 N 0055A-[address] [place] [address] [facility] Chemistry BUN/Creat Ratio 19 mg/dL 12 - 20 04/07 N 0055A-[address] [place], [place] [address] Chemistry Sodium 149 mmol/L 136 - 145 04/[address] [place] [address] Chemistry Calcium 9.7 mg/dL 8.4 - 10.2 04/[address] [place] [address] Chemistry Creatinine Level 0.80 mg/dL 0.57 - 1.11 04/[address] [place] [address] Chemistry Ur Creat 126 mg/dL 04/[address] [place] [address] Chemistry Ur Microalb/Ur Creat Ratio 4.8 mg/gCr 04/07 Result Comment: CORRECTED DUE TO UNIT OF MEASURE CONVERSION. [address] [place] [address] Chemistry Ur Microalbumi n 6 mg/gCr 04/07 N Interpretive Data: To minimize intra-indivi dual variation, analysis of three random urine samples collected over the course of a week has also been recommended. [address] [place] [address] Chemistry Hemoglobin A1c 5.1 % 4.0 - [...] diabetes. Because studies have repeatedly shown that txy-xy-pgcbf ol diabetes results in complication s from the disease, the goal for people with diabetes is a hemoglobin A1c less than 7%. The higher the hemoglobin A1c, the higher the risks of developing complication s related to diabetes. If confirmation is needed, consider recalling the patient and ordering Hemoglobin Electrophore sis. [address] [place] [address] Chemistry eAvg Glucose 100 mg/dL 04/[address] [place] [address] Chemistry HDL Cholesterol 63 mg/dL 40 - 59 04/07 H Interpretive Data: HDL (HIGH DENSITY LIPOPROTEIN) : ADULTS: Low: < 40 mg/dL High: >/= 60 mg/dL AGES 0 -19: Low: < 40 mg/dL Borderline Low: 40 - 45 mg/dL Acceptable: > 45 mg/dL [address] [place] [address] Chemistry LDL 89 mg/dL 100 - 130 04/07 L Interpretive Data: AGES 0-19: Desirable: < 110 mg/dL Borderline High: 110-129 mg/dL High: >/= 130 mg/dL ADULTS: Desirable: <100 mg/dL Near/above optimal: 100-130 mg/dL Borderline High: 131-159 mg/dL High: 160-189 mg/dL Very High: 190 mg/dL [address] [place] [address] Chemistry Chol/HDL 3 mg/dL 04/[address] [place] [address] Chemistry Cholesterol Total 158 mg/dL 04/07 N Interpretive Data: According to the [place] [employer]: AGES 0-19: Desirable: < 170 mg/dL Borderline High: 170-199 mg/dL High Blood Cholesterol: >/= 200 mg/dL ADULTS: Desirable < 200 mg/dL Borderline High: 200-239 mg/dL High Blood Cholesterol: >/= 240 mg/dL [address] [place] [address] Chemistry LDL/HDL 1 04/[address] [place] [address] Chemistry Triglycerid es 120 mg/dL 7 - 149 04/07 N Interpretive Data: AGES 0-9: Desirable: < 75 mg/dL Borderline High: 75-99 mg/dL High: >/= 100 mg/dL AGES 10-19: Desirable: < 90 mg/dL Borderline High: 90-129 mg/dL High: >/= 130 mg/dL ADULTS: Desirable: < 150 mg/dL Borderline High: 150-199 mg/dL High: >/= 240 mg/dL Very High: >/= 500 mg/dL [address] [place] [address] Vital Signs Combined list of inpatient and outpatient Vital Signs from Department of Defense and Veterans Affairs, ranging from 12 months to all on record, depending upon the facility. Vital Sign Value Date Comments Source Blood Pressure Manual Automatic 04/17/2023 20:40:00 0787W-Oj-U-375[facility] Peripheral Pulse Rate 81 bpm 04/17/2023 20:40:00 3384D-Da-Z-375Th [facility] Mean Arterial Pressure, Calc 96 mm[Hg] 04/17/2023 20:40:00 9203I-Gz-Z-3 [facility] Systolic Blood Pressure 129 mm[Hg] 04/17/2023 20:40:00 6262W-Id-O-375Th [facility] Diastolic Blood Pressure 79 mm[Hg] 04/17/2023 20:40:00 7258B-Lj-P-375Th [facility] Respiratory Rate 16 br/min 04/17/2023 20:40:00 5633G-Yd-B-375Th [facility] BP Site Left arm 04/17/2023 20:40:00 6130C -Af-C-375Th [facility] Peripheral Pulse Rate 64 bpm 03/23/2023 14:54:00 1556B-Xu-I-375Th [facility] BP Site Right arm 03/23/2023 14:54:00 6130C -Af-C-375Th [facility] Blood Pressure Manual Automatic 03/23/2023 14:54:00 2706C-Ru-S-375Th [facility] Systolic Blood Pressure 140 mm[Hg] 03/23/2023 14:54:00 4773F-Es-A-375Th [facility] Diastolic Blood Pressure 83 mm[Hg] 03/23/2023 14:54:00 9690F-An-P-375Th [facility] Mean Arterial Pressure, Calc 102 mm[Hg] 03/23/2023 14:54:00 8260J-Bo-J-3 [facility] Peripheral Pulse Rate 59 bpm 05/10/2024 14:59:00 8848R-Ww-H-375Th [facility] Respiratory Rate 18 br/min 05/10/2024 14:59:00 5551J-Wg-V-375Th [facility] Mean Arterial Pressure, Calc 101 mm[Hg] 05/10/2024 14:59:00 5683A-Xy-L-3 [facility] BP Site Right arm 05/10/2024 14:59:00 6130C -Af-C-375Th [facility] Systolic Blood Pressure 143 mm[Hg] 05/10/2024 14:59:00 8578L-Fk-C-375Th [facility] Diastolic Blood Pressure 80 mm[Hg] 05/10/2024 14:59:00 6905W-Qu-J-375Th [facility]ette Blood Pressure Manual Automatic 05/10/2024 14:59:00 4609S-Nb-Y-[facility] Kathy-[facility] Encounters Combined list of: 1) Encounters from Department of Veterans Affairs facilities going backup to the last 18 months, not all VA inpatient encounters are included; 2) Encounters from the Department of Defense facilities going backup to 280 months. Location Location Details Encounter Type Encounter Number Reason For Visit Attending Provider ADM Date DC Date Status Disposition Source [address] [place] [address])([facility] Practice Non-GME FHI2) OUTPATIENT [id number] cough/c hest congest EMERALD PEARCE 10/20 Released w/o Limitations [address] [place] [address])(F amily Practic e Non-GME FHI2) [address] [place] [address])([facility] rishabh Practice Non-GME FHI1) TELE CONSULT [id number] Needs paper filled out. CRISTOFER JACOB 12/[address] [place] [address])(F amily Practic e Non-GME FHI1) [address] [place] [address])([facility] rishabh Practice Non-GME FHI1) TELE CONSULT [id number] CRISTOFER JACOB 01/[address] [place] [address])(F amily Practic e Non-GME FHI1) [address] [place] [address])(Fam rishabh Practice Non-GME FHI1) TELE CONSULT [id number] RX REFILL DESTINEE JACKSON 07/[address] [place] [address])(F amily Practic e Non-GME FHI1) [address] [place] [address])(Fam rishabh Practice Non-GME FHI1) OUTPATIENT [id number] PROD COUGH, S/T MIKEY GONZALEZ 08/31 Released w/o Limitations [address] [place] [address])(F amily Practic e Non-GME FHI1) [address] [place] [address])(Fam rishabh Practice Non-GME FHI1) OUTPATIENT [id number] POSS LIZZIE WHITE 12/07 Released w/o Limitations [address] [place] [address])(F amily Practic e Non-GME FHI1) [address] [place] [address] Ishan [facility])(Fam rishabh Practice Non-GME FHI1) OUTPATIENT [id number] hip and foot LIZZIE DOE 01/09 Released w/o Limitations [address] [place] [address] Ish[facility])(F amily Practic e Non-GME FHI1) [address] [place] [address])(Insurance Sales Assistant ecology) OUTPATIENT [id number] pap smear ARIES ISLAS 01/11 Released w/o Limitations [address] [place] [address] Ishan [facility])(G ynecolo gy) [address] [place] [address] Ish[facility] [place])(Fam rishabh Practice Non-GME FHI1) OUTPATIENT [id number] med fol LIZZIE DOE 08/07 Released w/o Limitations [address] [place] [address])(F amily Practic e Non-GME FHI1) [address] [place] [address] Ishan [facility])(Fam rishabh Practice Non-GME FHI1) TELE CONSULT [id number] Needs med refill CRISTOFER PEREYRA 02/[address] [place] [address])(F amily Practic e Non-GME FHI1) [address] [place] [address])(Fam rishabh Practice Non-GME FHI1) OUTPATIENT [id number] annual exam, med refill, lab work, meet [facility] NIKUNJUYEN PÉREZ 03/13 Released w/o Limitations [address] [place] [address] Ish[facility])(F amily Practic e Non-GME FHI1) [address] [place] [address])(Fam rishabh Practice Non-GME FHI1) TELE CONSULT [id number] Follow appoint KARISSA Hernandez 03/[address] [place] [address] Ish[facility])(F amily Practic e Non-GME FHI1) [address] [place] [address])(Fam rishabh Practice Non-GME FHI1) OUTPATIENT [id number] f/u labs [facility] 03/28 Released w/o Limitations [address] [place], [place] [address])(F amily Practic e Non-GME FHI1) [address] [place], [place] [address])(Fam rishabh Practice Non-GME FHI1) OUTPATIENT [id number] F/u on medicat ion per UYEN Ramirez 04/17 Released w/o Limitations [address] [place] [address])(F amily Practic e Non-GME FHI1) [address] [place] [address])(Insurance Sales Assistant ecology) OUTPATIENT [id number] MENORRH AGIA TITA HANNA 04/20 Released w/o Limitations [address] [place] [address])(G ynecolo gy) [address] [place] [address])([facility]) OUTPATIENT [id number] ANA LAURA AVENDANO 05/29 Released w/o Limitations [address] [place] [address])(N utritio nal Medicin e) [address] [place] [address])([facility] Practice Non-GME FHI1) TELE CONSULT [id number] Request Change KARISSA FRANCO 07/[address] [place] [address])(F amily Practic e Non-GME FHI1) [address] [place] [address])(Insurance Sales Assistant ecology) TELE CONSULT [id number] change TITA Argueta 07/[address] [place] [address])(G ynecolo gy) [address] [place] [address])([facility] Practice Non-GME FHI1) OUTPATIENT [id number] cell#; f/u poss KILEY Oneill 08/17 Released w/o Limitations [address] [place] [address])(F amily Practic e Non-GME FHI1) [address] [place] [address])([facility] rishabh Practice Non-GME FHI2) TELE CONSULT [id number] meds request - KARISSA Tobin 09/[address] [place] [address])(F amily Practic e Non-GME FHI2) [address] [place] [address])([facility] rishabh Practice Non-GME FHI1) OUTPATIENT [id number] [id number] MARIA BULL Demian 09/18 Released w/o Limitations [address] [place] [address] Group [facility] [place])(F amily Practic e Non-GME FHI1) [facility] [place])([facility] Practice Non-GME FHI1) TELE CONSULT [id number] call back CT resutls CASANDRA PEDROZA 09/[address] [place] [address] Ish[facility] [place])(F amily Practic e Non-GME FHI1) [address] [place] [address] [facility] [place])([facility] Practice Non-GME FHI1) OUTPATIENT [id number] f/u HTN and anxiety KILEY ROWE 10/02 Released w/o Limitations [address] [place] [address] Group [facility] [place])(F amily Practic e Non-GME FHI1) [address] [place], [place] [address]B [place])([facility] Team 3) OUTPATIENT [id number] medicat ion [id number] EDVIN MONIQUE 12/02 Released w/o Limitations [address] [place] [address] [facility]an [facility] [place])([facility] Team 3) [address] [place], [place] [address] [employer] [place])(War rior Op Med Cln Tm A Ad) TELE CONSULT [id number] lab results CRISTOFER JACOB 12/[address] [place] [address] Group [employer] [place])(W arrior Op Med Cln Tm A Ad) [address] [place], [place] [address])([facility] Team 3) TELE CONSULT [id number] call back lab results CASANDRA PEDROZA Farrah 12/[address] [place] [address] [employer] [place])([facility] Team 3) [address] [place] [address] [employer] [place])([facility] Team 3) TELE CONSULT [id number] [facility]/ rx request s ASHELY PINEDA 02/[address] [place] [address] [employer] [place])([facility] Team 3) [address] [place] [address] [employer] [place])([facility] Team 3) OUTPATIENT [id number] Request ing dosage inc of citalop angelia EDVIN MONIQUE 02/16 Released w/o Limitations [address] [place] [address] [employer] [place])([facility] Team 3) [address] [place] [address])([facility] Team 3) TELE CONSULT [id number] med refill - PCM CASANDRA Vega 04/[address] [place] [address])([facility] Team 3) [address] [place] [address])([facility] Team 3) OUTPATIENT [id number] f/u depress ion/pos s med change KILEY ROWE E 05/21 Released w/o Limitations [address] [place] [address])([facility] Team 3) [address] [place] [address])([facility] Team 3) OUTPATIENT [id number] PAIN IN RIGHT SHOULDE R [phone] KILEY ROWE E 09/25 Released w/o Limitations [address] [place] [address])([facility] Team 3) [address] [place] [address])([facility] Team 3) TELE CONSULT [id number] PCM - Dr. Rowe, request s appoint ment DENISSE ADLER 09/[address] [place] [address])([facility] Team 3) [address] [place] [address])([facility] Team 3) OUTPATIENT [id number] well woman / pap KILEY ROWE 10/16 Released w/o Limitations [address] [place] [address])([facility] Team 3) [address] [place] [address])([facility] Team 3) TELE CONSULT [id number] Audiono michelle-lab results KILEY ROWE 10/[address] [place] [address])([facility] Team 3) [address] [place] [address])([facility] Team 3) TELE CONSULT [id number] Info T Con SHADY Aguila 02/[address] [place] [address] Sihan [facility])([facility] Team 3) [address] [place] [address] Ishan [facility])([facility] Team 3) OUTPATIENT [id number] pain in neck and shoulde r x 2 months TYSON CALVIN 04/19 Released w/o Limitations [facility] Medical Group [employer] ([facility] Team 3) [facility] Medical [facility] Ishan [employer] ([facility])([facility] Team 3) TELE CONSULT [id number] Nikunj haynes for echo cardio gram. [facility] Pt number [phone] PATRIC ALMONTE 06/17 Referred for Appointment [address] [place] [address] Ishan TUNGB ([facility] Team 3) [address] [place] [address] [employer] [place])(Fam rishabh Med Tm B Non-AD BCC) TELE CONSULT [id number] weekend exchang e call USHA JAIN Demian 07/[address] [place] [address] Ishan [place]GB ([facility])(F amily Med Tm B Non-AD BCC) [address] [place] [address] Ishan [place])(Car diology ([facility])) OUTPATIENT [id number] murmur LIPOFFJEREMÍAS I 07/13 Released w/o Limitations [address] [place] [address] Ishan TUNGB ([facility])(C ardiolo gy ([facility])) [address] [place] [address] Ishan [place])([facility] Team 3) TELE CONSULT [id number] Nikunj /[phone]/ne eds meds refill to [id number] PATRIC ALMONTE 07/[address] [place] [address] Group Ishan RUBYB ([facility])([facility] Team 3) [address] [place] [address] Ishan [employer])([facility] Team 3) OUTPATIENT [id number] f/u to echo [phone] TYSON CALVIN 08/25 Released w/o Limitations [facility] Medical Group Ishan [employer] ([facility] Team 3) [facility] Medical [facility] Ishan [employer] [place])([facility] Team 3) TELE CONSULT [id number] lab results - PCM YESSENIA Brower 08/26 Other Not Elsewhere Classified [facility] Medical Group [employer] ([facility])([facility] Team 3) [address] [place] [address] [employer] [place])([facility] Team 3) TELE CONSULT [id number] new meds not working [phone] YESSENIA FITZPATRICK 08/31 Referred for Appointment [facility] Medical Group [employer] TUNGB ([facility] Team 3) [facility] Medical [employer] ([facility])([facility] Team 3) OUTPATIENT [id number] sinus.. .[phone] 1 RAINESMARY LOUKETTY A 12/23 Released w/o Limitations [facility] Medical Group [employer] ([facility])([facility] Team 3) [facility] [employer] ([facility])([facility] Team 3) TELE CONSULT [id number] F/u labs YANNA KETTY A 12/23 [facility] Medical [employer] ([facility])([facility] Team 3) [facility] Medical [employer] ([facility])([facility]) OUTPATIENT [id number] obesity [facility] 01/06 Released w/o Limitations [employer] ([facility])(N utriti nal Medicin e) [facility] Medical [employer] ([facility])([facility]) OUTPATIENT [id number] obesity F/U [facility] 02/07 Released w/o Limitations [facility] Medical Group [employer] ([facility])(N utriti nal Medicin e) [facility] Medical [employer] ([facility])([facility] Team 3) OUTPATIENT [id number] sinus infecti on [id number] TYSON CALVIN 04/06 Released w/o Limitations [address] [place] [address] [employer] ([facility])([facility] Team 3) [facility] Medical [employer] ([facility])([facility] Team 3) TELE CONSULT [id number] Pt on vacatio n and forget to take meds please call @ [phone] [facility] YESSENIA FITZPATRICK 04/11 [employer] ([facility] Team 3) [employer] ([facility])([facility] Team 3) OUTPATIENT [id number] f/u for cholest david and pre-shayla betes [id number] LAWANDA LOVING 03/14 Released w/o Limitations [employer] ([facility])(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) OUTPATIENT [id number] well woman exam/58 [id number] ESTEE DALTON 05/03 Released w/o Limitations [facility] [place]G ynecolo gy) [address] [place] [address])(Meo tt [facility] Team 3) TELE CONSULT [id number] Notes Entered by: GEN ROY 25 Jun 2012 1042 ------- ------- ------- ------- -- Rx Danis haynes/Carly [phone] BARTOLO ARAIZA 06/[address] [place] [address])(S [facility] Team 3) [address] [place] [address])(Insurance Sales Assistant ecology) TELE CONSULT [id number] Notes Entered by: DERRICK FLORES 25 Jun 2012 1057 ------- ------- ------- ------- -- ESTEE Garrison 06/[address] [place] [address])(G yleonelcocarla gy) [address] [place] [address])(Meo tt [facility] Team 3) OUTPATIENT [id number] f/u for cholest oral labs [id number] LAWANDA LOVING 07/31 Released w/o Limitations [address] [place] [address])([facility] Team 3) [address] [place] [address])(Insurance Sales Assistant ecology) OUTPATIENT [id number] f/u prempro /[phone] ESTEE DALTON 08/03 Released w/o Limitations [address] [place], [place] [address])(G ynecolo gy) [facility] Medical [facility] [place])(War rior Op Med Cln Tm A Ad) OUTPATIENT [id number] would like to change depress ion and cholest david medicat ion [phone] KAVYA FINNEY 03/25 Released w/o Limitations [address] [place] [address] [employer] [place])(W arrior Op Med Cln Tm A Ad) [address] [place], [place] [address])(War rior Op Med Cln Tm A Ad) OUTPATIENT [id number] rash on neck [phone] SAMARIA CREWS 05/16 Released w/o Limitations [address] [place] [address])(W arrior Op Med Cln Tm A Ad) [address] [place] [address])(War rior Op Med Cln Tm A Ad) OUTPATIENT [id number] annual checkup , discuss pain in both feet, right knee [phone] KAVYA FINNEY 07/29 Released w/o Limitations [address] [place] [address])(W arrior Op Med Cln Tm A Ad) [address] [place] [address])(War rior Op Med Cln Tm A Ad) OUTPATIENT [id number] facial pain, sore throat, sinus congest ion [id number] NED CONNELLY 10/07 Released w/o Limitations [address] [place] [address])(W arrior Op Med Cln Tm A Ad) [address] [place] [address])(Med ication Refill Clinic) TELE CONSULT [id number] Notes Entered by: SAGRARIO WHYTE ELS 09 Nov 2015 1338 ------- ------- ------- ------- -- Med Bridge/ /Colane se//[phone] RIVAS MEJIA 11/[address] [place] [address])(Echo [facility]) [address] [place] [address])(Fam rishabh Med Tm B Non-AD BCC) TELE CONSULT [id number] Notes Entered by: Ganga YAO 19 Nov 2015 1447 ------- ------- ------- ------- -- SX - R Eye Swollen , drainag e / Colanes e / RENA BEST 11/18 Referred for Appointment [address] [place] [address])(F amily Med Tm B Non-AD BCC) [address] [place] [address])(Fam rishabh Med Tm B Non-AD BCC) OUTPATIENT [id number] right foot pain,me d review [phone] SAMARIA CREWS 12/08 Released w/o Limitations [address] [place] [address] Ishan [facility])(F amily Med Tm B Non-AD BCC) [address] [place] [address] Ishan [facility])(Insurance Sales Assistant ecology) OUTPATIENT [id number] WWE/Pap RADHA MARLOW 12/15 Released w/o Limitations [address] [place] [address] Ishan [facility])(G ynecolo gy) [address] [place] [address] Ishan [facility])(Fam rishabh Med Tm B Non-AD BCC) TELE CONSULT [id number] Notes Entered by: LILLI GAYTAN 11 Feb 2016 1013 ------- ------- ------- ------- -- Network Results -RADIOL OGY 02/08/16 SCREEN MAMMO SDG SAMARIA CREWS 02/[address] [place] [address])(F amily Med Tm B Non-AD BCC) [address] [place] [address])(War rior Op Med Cln Tm A Ad) TELE CONSULT [id number] Notes Entered by: SAMARIA CREWS 11 Feb 20162007 ------- ------- ------- ------- -- Followu p on mammogr RENA Garcia 02/11 Referred for Appointment [address] [place] [address] Ishan [facility])(W arrior Op Med Cln Tm A Ad) [address] [place] [address] Ishan [facility])(Fam rishabh Med Tm B Non-AD BCC) TELE CONSULT [id number] Notes Entered by: LUKAS SHARLENE Farooq 22 Mar 2016 0720 ------- ------- ------- ------- -- Network Results -RADIOL OGY 03/21/16 DX MAMMO/R T BRST US SDG SHAUN FERNANDEZ 03/[address] [place] [address] Ishan [facility])(F amily Med Tm B Non-AD BCC) [address] [place] [address])(War rior Op Med Cln Tm A Ad) TELE CONSULT [id number] Notes Entered by: ROSA YIP 01 Nov 2016 1020 ------- ------- ------- ------- -- Colanes e/ Per Chelsea Ramirez/JIGNESH Lomax 11/01 Other Not Elsewhere Classified [address] [place] [address] Ishan [facility])(W arrior Op Med Cln Tm A Ad) [address] [place] [address] Ishan [facility])(Fam rishabh Med Tm B Non-AD BCC) TELE CONSULT [id number] Notes Entered by: JOHANN GUADARRAMA 02 Dec 2016 1042 ------- ------- ------- ------- -- F/U after ER Visit / Colanes e / - sgj JIGNESH GONZALES 12/02 Released to Self [facility] [address] [place] [address])(F amily Med Tm B Non-AD BCC) [address] [place] [address])(Fam rishabh Med Tm B Non-AD BCC) OUTPATIENT [id number] Headach e/cough /sneezi ng/nasa l congest ion/tir ed [id number] DAMIAN ESCALONA 01/18 Released w/o Limitations [address] [place] [address])(F amily Med Tm B Non-AD BCC) [address] [place] [address])(Fam rishabh Med Tm B Non-AD BCC) OUTPATIENT [id number] Itchy rash on arms and leg, [phone] SHAUN FERNANDEZ 12/21 Released w/o Limitations [address] [place] [address])(F amily Med Tm B Non-AD BCC) [address] [place] [address])(Sco tt MTF OP) TELE CONSULT [id number] Notes Entered by: KEEGAN CHAHAL 25 Dec 2017 1416 ------- ------- ------- ------- -- Med Refill - Colanes e - [phone] [id number] GUI Mondragon 12/[address] [place] [address])(S cott MEF OP) [facility] Medical Group [employer] [place] ([facility])(Fam rishabh Med Tm B Non-AD BCC) OUTPATIENT [id number] *[id number] - annual check up / sleep issues SHAUN FERNANDEZ Reza 02/20 Released w/o Limitations [address] [place] [address] Group [employer] [place] ([facility])(F amily Med Tm B Non-AD BCC) [address] [place] [address] Ishan [employer] [place])(War rior Op Med Cln Tm A Ad) OUTPATIENT [id number] F/U for medicat ions [id number] BOBBY, ALRIA OPENA 07/10 Released w/o Limitations [address] [place] [address] Group [employer] [place])(W arrior Op Med Cln Tm A Ad) [address] [place] [address] Group [employer] [place])(War rior Op Med Cln Tm A Ad) TELE CONSULT [id number] Notes Entered by: ST JARAD WALTER 17 Sep 2019 0825 ------- ------- ------- ------- -- Network results Podiatr y 020 SAD BOBBY, ALRIA OPENA 09/[address] [place] [address] Group [employer] [place])(W arrior Op Med Cln Tm A Ad) [address] [place] [address] Group [employer] [place])(Sco tt [facility] Fam Res Tm Green) OUTPATIENT [id number] labs and med renewal s in person [phone] ANITA MEJIA 12/07 Released w/o Limitations [address] [place] [address] Group [employer] [place])(S cott [facility] Fam Res Tm Green) [facility] Medical Group [employer] JODEE [place])(Sco tt [facility] Fam Res Tm Green) OUTPATIENT [id number] well woman /pap and check BP in person ATILIO LIGHT 12/21 Released w/o Limitations [address] [place] [address] Group [employer]an [place])(S cott [facility] Fam Res Tm Green) [address] [place] [address] Group [employer] [place])(Sco tt [facility] Fam Res Tm Green) TELE CONSULT [id number] Notes Entered by: Gissell LANE 22 Dec 2020 0935 ------- ------- ------- ------- -- Network results Physica l Therapy 021 ANITA GORE 12/22 Released to Self Care [address] [place] [address])(S cott [facility] Fam Res Tm Green) [address] [place] [address])(Sco tt [facility] Fam Res Tm Green) TELE CONSULT [id number] Notes Entered by: Georgia LIGHT 23 Dec 2020 1214 ------- ------- ------- ------- -- Lab results ATILIO LIGHT 12/23 Released to Self Care [address] [place] [address])(S [facility] Fam Res Tm Green) [address] [place] [address])(Sco tt [facility] Fam Res Tm Green) TELE CONSULT [id number] Notes Entered by: CHELY PABON 19 Jan 2021 0800 ------- ------- ------- ------- -- Network results Physica l Therapy 021 ANITA EASON 01/19 Released to Self Care [address] [place] [address])(S [facility] Fam Res Tm Green) [address] [place] [address])(Sco tt [facility] Fam Res Tm Green) TELE CONSULT [id number] Notes Entered by: JONATHAN IGNACIO 14 Apr 2021 1424 ------- ------- ------- ------- -- Med Renewal Request / Ce/ - SREEKANTH Davison 04/14 Referred for Appointment [address] [place] [address])(S cott [facility] Fam Res Tm Green) [address] [place] [address])(Sco tt [facility] FAMRES Tm Blue) OUTPATIENT [id number] med refill/ f/uAnil DELL MORRISSEY 04/15 Released w/o Limitations [address] [place] [address] Ishan TUNGB ([facility]S cott [facility] FAMRES Tm Blue) [address] [place] [address] Ishan [facility] ([facility])(Sco tt [facility] FAMRES Tm Blue) OUTPATIENT [id number] Anxiety and GERD F/U DELL MORRISSEY N 05/26 Released w/o Limitations [address] [place] [address] Ishan TUNGB ([facility])(S cott OF FAMRES Tm Blue) [address] [place] [address] Ishan [place])(Sco tt [facility] FAMRES Tm Blue) OUTPATIENT [id number] Virtual Medicat ion F/u [phone] DELL MORRISSEY N 06/24 Released w/o Limitations [address] [place] [address] Ishan [place] ([facility]S cott [facility] FAMRES Tm Blue) [address] [place] [address] Ishan [place])(Sco tt [facility] FAMRES Tm Blue) OUTPATIENT [id number] Virtual Medicat ion f/u [phone] DELL MORRISSEY N 07/27 Released w/o Limitations [address] [place] [address] Ishan [place] ([facility])(S cott [facility] FAMRES Tm Blue) [address] [place] [address] Ishan [place])(Sco tt [facility] Fam Res Tm Green) TELE CONSULT [id number] Notes Entered by: CLAIRE KING 03 Jan 2022 1028 ------- ------- ------- ------- -- Rx refill/ Gar / [phone] PALMIRA KING 01/03 Other Not Elsewhere Classified [address] [place] [address] [employer]an [place] ([facility])(S cott [facility] Fam Res Tm Green) [address] [place] [address] Ishan [employer] [place])(Sco tt [facility] Fam Res Tm Green) OUTPATIENT [id number] F2F Prescri ption Refills /Sciati c LUIS ANTONIO DOUGLAS 02/04 Released w/o Limitations [address] [place] [address] [employer]an [place] ([facility])(S cott [facility] Fam Res Tm Green) [address] [place] [address] [employer] [place])(Sco tt [facility] Fam Res Tm Green) OUTPATIENT [id number] right foot pain and bilater al pain F2F ANITA MEJIA M 07/27 Released w/o Limitations [address] [place] [address] Ishan [place])(S cott [facility] Damon) [address] [place] [address] Ishan [facility])(Sco tt [facility]) TELE CONSULT [id number] Notes Entered by: NICOLE NIXON 03 Oct 2022 1505 ------- ------- ------- ------- -- k Results Podiatr y 022 EGW ANITA MEJIA M 10/03 Released to Self Care [address] [place] [address])(S cott [facility] Damon) [address] [place] [address] Ishan [facility])(Meo tt [facility]) TELE CONSULT [id number] Notes Entered by: NICOLAS GARZA 05 Oct 2022 1317 ------- ------- ------- ------- -- Network Results Podiatr y 023 HLW ANITA MEJIA M 10/05 Released to Self Care [address] [place] [address] Ishan [facility])(S [facility] Damon) [address] [place] [address] Ishan [facility])(Meo tt [facility]) TELE CONSULT [id number] Notes Entered by: Echo LAWTON 25 Jan 2023 0944 ------- ------- ------- ------- -- RX Renewal 6 days /Farradha l/ PALMIRA KING 01/25 Referred for Appointment [address] [place] [address] Ishan [facility])(S cott [facility]) [id number] [place] [address] [id number] Allergi c rhiniti s, unspeci fied,De pressio [...] Disposition: Home or Self Care [id number] [facility] Procedures Combined list of: 1) Procedures from Department of Veterans Affairs facilities going back up to thelast 18 months, not all VA non-surgical procedures are included; 2) All procedures from the Department of Defense facilities. Procedure Procedure Type Code Date Perfomer Comments Sourc e No data available for this section [facility]acy HEALTH BEHAVIOR ASSESSMENT, OR RE-ASSESSMENT (IE, HEALTH-FOCUSED CLINICAL INTERVIEW, BEHAVIORAL OBSERVATIONS, CLINICAL DECISION MAKING) 2020 [facility] BRIEF EMOTIONAL/BEHAVIORAL ASSESSMENT (EG, DEPRESSION INVENTORY, ATTENTION-DEFICIT/HY PERACTIVITY DISORDER [ADHD] SCALE), WITH SCORING AND DOCUMENTATION, PER STANDARDIZED INSTRUMENT 2020 [facility] BRIEF EMOTIONAL/BEHAVIORAL ASSESSMENT (EG, DEPRESSION INVENTORY, ATTENTION-DEFICIT/HY PERACTIVITY DISORDER [ADHD] SCALE), WITH SCORING AND DOCUMENTATION, PER STANDARDIZED INSTRUMENT 2020 [facility] BRIEF EMOTIONAL/BEHAVIORAL ASSESSMENT (EG, DEPRESSION INVENTORY, ATTENTION-DEFICIT/HY PERACTIVITY DISORDER [ADHD] SCALE), WITH SCORING AND DOCUMENTATION, PER STANDARDIZED INSTRUMENT 2020 [facility] CYTOPATHOLOGY, SMEARS, CERVICAL OR VAGINAL, UP TO THREE SMEARS; SCREENING BY AREA INTELLIGENCE TECHNICIAN UNDER PHYSICIAN SUPERVISION 2020 [facility] ONLINE ASSESS &MANAG SERV PROVIDE,A QUAL NONPHYS HCP TO AN ESTABLISHED PAT/GUARDIAN,NOT ORIGINAT FRM RELAT ASSESS &MANAG SERV PROVIDE W/IN THE PREV 7 DAYS,USE THE INTERNET/SIMILAR [employer] COMM NETWORK 2017 [facility] TELE ASSESS & MGT [...] MEDICAL NUTRITION THERAPY; RE-ASSESSMENT AND INTERVENTION, INDIVIDUAL, [id number] WITH THE PATIENT, EACH 15 MINUTES 2010 [facility] MEDICAL NUTRITION THERAPY; INITIAL ASSESSMENT AND INTERVENTION, INDIVIDUAL, [id number] WITH THE PATIENT, EACH 15 MINUTES 2010 [facility] ELECTROCARDIOGRAM, ROUTINE ECG WITH AT LEAST 12 [...] 24 HR/SOON APT;5-10 MIN MED DIS 2008 [facility] MEDICAL NUTRITION THERAPY; GROUP (2 OR MORE INDIVIDUAL(S)), EACH 30 MINUTES 2006 [facility] ENDOMETRIAL SAMPLING (BIOPSY) WITH OR WITHOUT ENDOCERVICAL SAMPLING (BIOPSY), WITHOUT CERVICAL DILATION, ANY METHOD (SEPARATE PROCEDURE) 2006 [facility] SCREENING PAPANICOLAOU SMEAR; OBTAINING, PREPARING AND CONVEYANCE OF CERVICAL OR VAGINAL SMEAR TO LABORATORY 2006 [facility] SCREENING PAPANICOLAOU SMEAR; OBTAINING, PREPARING AND CONVEYANCE OF CERVICAL OR VAGINAL SMEAR TO LABORATORY 2005 [facility] CULTURE, PRESUMPTIVE, PATHOGENIC ORGANISMS, SCREENING ONLY 2005 [facility] UNLISTED SPECIAL SERVICE, PROCEDURE OR REPORT 2004 [facility] SCREENING PAPANICOLAOU SMEAR; OBTAINING, PREPARING AND CONVEYANCE OF CERVICAL OR VAGINAL SMEAR TO LABORATORY 2003 [facility] SCREENING PAPANICOLAOU SMEAR; OBTAINING, PREPARING AND CONVEYANCE OF CERVICAL OR VAGINAL SMEAR TO LABORATORY 2002 [facility] Internet Med Svc Qual Nonphys Healthcare Prof Estab Patient Internet Med Svc Qual Nonphys Healthcare Prof Estab Patient [id number] 2017 SHAUN FERNANDEZ [facility] Non-Physician Phone Call To Patient/Provider Brief (5-10min) Non-Physician Phone Call To Patient/Provider Brief (5-10min) [id number] 2017 GUI PONCE [facility] Non-Physician Phone Call To Patient/Provider Brief (5-10min) Non-Physician Phone Call To Patient/Provider Brief (5-10min) [id number] 2016 JIGNESH GONZALES [facility] Screening papanicolaou smear; obtaining, preparing and conveyance of cervical or vaginal smear to laboratory 2015 RADHA MARLOW [facility] Non-Physician Phone Call To Patient/Provider Brief (5-10min) Non-Physician Phone Call To Patient/Provider Brief (5-10min) [id number] 2015 RENA BEST [facility] Skin Tag Removal Up To 15 Lesions Skin Tag Removal Up To 15 Lesions [id number] 2011 LAWANDA LOVING [facility] Medical Nutrition Therapy Re-a e ment, Intervention Medical Nutrition Therapy Re-assessment, Intervention [id number] 2010 JARAD WANG [facility] Medical Nutrition Therapy Initial A e ment, Intervention Medical Nutrition Therapy Initial Assessment, Intervention [id number] 2010 JARAD WANG [facility] Electrocardiogram Electrocardiogram 07595 12/24 KETTY RAINES [facility] Non-Physician Phone Call To Patient/Provider Brief (5-10min) Non-Physician Phone Call To Patient/Provider Brief (5-10min) [id number] 2009 PATRIC ALMONTE [facility] Echo For Congenital Defects Transthoracic With M-Mode, Spectral, And Color Flow Echo For Congenital Defects Transthoracic With M-Mode, Spectral, And Color Flow [id number] 2009 DIEGO GOOD [facility] Non-Physician Phone Call To Pt/Provider Intermed (11-20 min) Non-Physician Phone Call To Pt/Provider Intermed (11-20 min) [id number] 2009 PATRIC ALMONTE [facility] Screening papanicolaou smear; obtaining, preparing and conveyance of cervical or vaginal smear to laboratory 2009 KILEY ROWE [facility] Non-Physician Phone Call To Patient/Provider Brief (5-10min) Non-Physician Phone Call To Patient/Provider Brief (5-10min) [id number] 2008 CASANDRA PEDROZA [facility] Medical Nutrition Therapy Group (2 or More Individual(s)) Medical Nutrition Therapy Group (2 or More Individual(s)) [id number] 2006 ANA LAURA AVENDANO [facility] Biopsy Endometrial, Without Cervical Dilation Biopsy Endometrial, Without Cervical Dilation [id number] 2006 TITA HANNA [facility] Screening papanicolaou smear; obtaining, preparing and conveyance of cervical or vaginal smear to laboratory 2006 UYEN VILLAREAL [facility] Screening papanicolaou smear; obtaining, preparing and conveyance of cervical or vaginal smear to laboratory 2005 ARIES ISLAS [facility] Rapid Antigen Identification Streptococcus Group A Beta Hemolytic Rapid Antigen Identification Streptococcus Group A Beta Hemolytic [id number] 2005 LIZZIE DOE Oropharynx Culture Streptococcus Group A Beta Hemolytic Oropharynx Culture Streptococcus Group A Beta Hemolytic 84760 2005 LIZZIE DOE Cervical Pap Smear Cervical Pap Smear [id number] ATILIO LIGHT DoD Waiver services; not otherwise specified (NOS) DELL MORRISSEY [facility] Social History Combined list of available smoking, tobacco, and other social history from Department of Defense and Veterans Affairs facilities. Social History Type Response Date Comment Marques e Sex Representation Female (finding) 06/28/2021 Unknown Organization Tobacco Cigarette use: Never-cigarette user. Other Tobacco use: Never-other tobacco user (not cigarettes). Ambulatory Pharmacy Sexual Orientation Ambula tory Pharmacy Gender identity Ambulator y Pharmacy This section is an empty social history section. [facility] Assessment and Plan Combined list of future care activities from Department of Defense and Veterans Affairs facilities (e.g., assessment and plan notes, appointments, orders, and referrals). Additional future care activities may be listed in the Plan of Care section. Result Assessment and Plan Date Source Assessment and Plan Extracted from:Title : [facility]- annual Author: ELIN CAMARILLO MD Date: 05/10/24 [...] Maintenance, 1 cap(s) Oral Daily, Pharmacy: [facility] [Not filled] 6. H yperlipidemia Chronic, [...] 1 tab(s) Oral Daily,Instr:90 tab(s), Pharmacy: [facility] [Not filled] rOPINIRole(rOPINIRole 1 mg oral tablet), 1 tab(s), Oral, Daily, 90 tab(s), # 90 tab(s), 3 total refill(s), Maintenance, 1 tab(s) Oral Daily,Instr:90 tab(s), Pharmacy: [facility] [Not filled] rosuvastatin(rosuvastatin 10 mg oral tablet), 1 tab(s), Oral, Daily, 90 tab(s), # 90 tab(s), 3 total refill(s), Maintenance, 1 tab(s) Oral Daily,Instr:90 tab(s), Pharmacy: [facility] [Not filled] valACYclovir(valACYclovir 500 mg oral tablet), 1 tab(s), Oral, Daily, 90 tab(s), # 90 tab(s), 3 total refill(s), Maintenance, 1 tab(s) Oral Daily,Instr:90 tab(s), Pharmacy: [facility], Viral prophylaxis [Not filled] Capt Elin Camarillo DO Family Medicine Faculty Physician [address] [place] [address], [facility] Ishan [place]LL[place]TH Extracted from:Title: Family Medicine Note- Sleep apnea, diarrhea Author: JOE MOSLEY MD Date: 04/17/23 1. C hronic diarrhea of unknown origin Acute, u ncontrolled. HPI and PE suggestive of IBS. Bethany IV criteria c/w diagnosis. No associated alarm [...] Maintenance, 1 tab(s) Oral Daily,Instr:90 tab(s), Pharmacy: [facility] [Not filled] famotidine(famotidine 20 mg oral tablet), 1 tab(s), Oral, Daily, 90 tab(s), # 90 tab(s), 3 total refill(s), Maintenance, 1 tab(s) Oral Daily,Instr:90 tab(s), Pharmacy: [facility] [Not filled] rOPINIRole(rOPINIRole 1 mg oral tablet), 1 tab(s), Oral, Daily, 90 tab(s), # 90 tab(s), 3 total refill(s), Maintenance, 1 tab(s) Oral Daily,Instr:90 tab(s), Pharmacy: [facility] [Not filled] rosuvastatin(rosuvastatin 10 mg oral tablet), 1 tab(s), Oral, Daily, 90 tab(s), # 90 tab(s), 3 total refill(s), Maintenance, 1 tab(s) Oral Daily,Instr:90 tab(s), Pharmacy: [facility] [Not filled] sertraline(sertraline 100 mg oral tablet), 1 tab(s), Oral, Daily, 90 tab(s), # 90 tab(s), 3 total refill(s), Maintenance, 1 tab(s) Oral Daily,Instr:90 tab(s), Pharmacy: [facility] [Not filled] valACYclovir(valACYclovir 500 mg oral tablet), 1 tab(s), Oral, Daily, 90 tab(s), # 90 tab(s), 3 total refill(s), Maintenance, 1 tab(s) Oral Daily,Instr:90 tab(s), Pharmacy: [facility] [Not filled] MG Mammo Beck Screening Bilateral Capt Lucie (), [facility] Collector, PGY-1 [employer] Addendum by DENISE HOUSE DO on April 18, 2023 14:51:35 CDT I certify that I was physically present with the resident and patient. I have discussed the diagnosis and treatment plan with the resident [id number]. I have reviewed the note and concur with the findings, assessment, and plan. Follow up as listed. All labs/imaging/consults to be followed by the ordering provider. Capt Maninder, [facility], Staff Physician Extracted from:Title: [facility] [place] Author: VICKI LAMB MD Date: 03/23/23 [...] neosporin Mupirocin not indicated at this time Orders: Hemoglobin A1c Lipid Panel CAPT VICKI LAMB MD [place] [id number] MD [facility] FAMILY MEDICINE, PGY-2 Addendum by JOSE ROBERTO GANDHI MD on March 26, 2023 17:49:49 CDT On the date of this encounter, I was immediately available to assist the resident in the care of the patient, and have reviewed and agree with the resident s findings and plan of care Maj KATERINA (), [facility], Family Medicine-Obstetrics Faculty [employer] Future Scheduled TestsLaboratoryHIV-1/O/2 05/10/24emoglobin A1c 05/10/24epatitis C Antibody 05/10/24Lipid Panel 05/10/24RadiologyXR Knee Weight Bearing 3+ Left 05/10/24XR Knee Weight Bearing 3+ Right 05/10/24 03/25/2025 [id number] [facility] Assessment and Plan Extracted from:Title : [facility]- annual Author: ELIN CAMARILLO MD Date: 05/10/24 1. W sophie adult Preventative Medicine / HCM visit with [...] sleep medicine Ordered: Referral Request 2.0 - [facility] 4. A llergic rhinitis Chronic, controlled - [...] Maintenance, 1 cap(s) Oral Daily, Pharmacy: [facility] [Not filled] 6. H yperlipidemia Chronic, controlled - refilled statin - checking lipid panel 7. R estless legs Chronic, controlled - refilled ropinirole 8. E ncounter for screening for malignant neoplasm of colon Due for colon cancer screening per patient - referral to GI Ordered: Referral Request 2.0 - [facility] 9. O ral herpes simplex infection Chronic, [...] 1 tab(s) Oral Daily,Instr:90 tab(s), Pharmacy: [facility] [Not filled] rOPINIRole(rOPINIRole 1 mg oral tablet), 1 tab(s), Oral, Daily, 90 tab(s), # 90 tab(s), 3 total refill(s), Maintenance, 1 tab(s) Oral Daily,Instr:90 tab(s), Pharmacy: [facility] [Not filled] rosuvastatin(rosuvastatin 10 mg oral tablet), 1 tab(s), Oral, Daily, 90 tab(s), # 90 tab(s), 3 total refill(s), Maintenance, 1 tab(s) Oral Daily,Instr:90 tab(s), Pharmacy: [facility] [Not filled] valACYclovir(valACYclovir 500 mg oral tablet), 1 tab(s), Oral, Daily, 90 tab(s), # 90 tab(s), 3 total refill(s), Maintenance, 1 tab(s) Oral Daily,Instr:90 tab(s), Pharmacy: [facility], Viral prophylaxis [Not filled] Capt Elin Camarillo DO Family Medicine Faculty Physician [facility] Medical [facility], [facility] Ishan [employer] Extracted from:Title: Family Medicine Note- [...] 1 tab(s) Oral Daily,Instr:90 tab(s), Pharmacy: [facility] [Not filled] famotidine(famotidine 20 mg oral tablet), 1 tab(s), Oral, Daily, 90 tab(s), # 90 tab(s), 3 total refill(s), Maintenance, 1 tab(s) Oral Daily,Instr:90 tab(s), Pharmacy: [facility] [Not filled] rOPINIRole(rOPINIRole 1 mg oral tablet), 1 tab(s), Oral, Daily, 90 tab(s), # 90 tab(s), 3 total refill(s), Maintenance, 1 tab(s) Oral Daily,Instr:90 tab(s), Pharmacy: [facility] [Not filled] rosuvastatin(rosuvastatin 10 mg oral tablet), 1 tab(s), Oral, Daily, 90 tab(s), # 90 tab(s), 3 total refill(s), Maintenance, 1 tab(s) Oral Daily,Instr:90 tab(s), Pharmacy: [facility] [Not filled] sertraline(sertraline 100 mg oral tablet), 1 tab(s), Oral, Daily, 90 tab(s), # 90 tab(s), 3 total refill(s), Maintenance, 1 tab(s) Oral Daily,Instr:90 tab(s), Pharmacy: [facility] [Not filled] valACYclovir(valACYclovir 500 mg oral tablet), 1 tab(s), Oral, Daily, 90 tab(s), # 90 tab(s), 3 total refill(s), Maintenance, 1 tab(s) Oral Daily,Instr:90 tab(s), Pharmacy: [facility] [Not filled] MG Mammo Beck Screening Bilateral Capt Juan Faulkner, [facility], Collector, PGY-1 [employer] Addendum by DENISE HOUSE DO on April 18, 2023 14:51:35 CDT I certify that I was physically present with the resident and patient. I have discussed the diagnosis and treatment plan with the resident [id number]. I have reviewed the note and concur with the findings, assessment, and plan. Follow up as listed. All labs/imaging/consults to be followed by the ordering provider. Capt Maninder, [facility], Staff Physician Extracted from:Title: [facility] [place] Author: VICKI LAMB MD Date: 03/23/23 [...] neosporin Mupirocin not indicated at this time Orders: Hemoglobin A1c Lipid Panel CAPT VICKI LAMB MD [facility], [address] [facility] FAMILY MEDICINE, PGY-2 Addendum by JOSE ROBERTO GANDHI MD on March 26, 2023 17:49:49 CDT On the date of this encounter, I was immediately available to assist the resident in the care of the patient, and have reviewed and agree with the resident s findings and plan of care Maj KATERINA (), [facility], Family Medicine-Obstetrics Faculty [employer] Future Scheduled TestsLaboratoryHIV-1/O/2 05/10/24emoglobin A1c 05/10/24epatitis C Antibody 05/10/24Lipid Panel 05/10/24RadiologyXR Knee Weight Bearing 3+ Left 05/10/24XR Knee Weight Bearing 3+ Right 05/10/24 03/25/2025 Unknown Organization Functional Status Combined list of recent functional and cognitive assessments recorded at [facility] and [facility] ([facility] Functional [place] Measurement (FIM) Scale: 1 = Total Assistance (Subject = 0% +), 2 = Maximal Assistance (Subject = 25% +), 3 = Moderate Assistance (Subject = 50% +), 4 = Minimal Assistance (Subject = 75% +), 5 = Supervision, 6 = Modified [place] (Device), 7 = Complete [place] (Timely, Safely). Assessment Date/Time Source Assessment Type Assessment Skill Assessment Score Assessment Details No data available for this section
--- OUTSIDE RECORDS SUMMARY | 2025-03-25 08:13 | XMS_ITS | Patient Health Record ---
Author Organization [facility] Address [address] [place], [place] [id number] Care Team Providers Care Hand Glass Cutter Name Role Phone MAXIMILIAN MONTERO Unavailable [phone] Reason For Referral No Information Medications Medication SIG (Take, Route, Frequency, Duration) Notes Start Date End Date Status Medrol Dosepak ORAL Medrol DosepakOr iginal MedicationMedrol Dosepak *[facility] Interaction [facility]* 09/09/2019 Active calcium carbonate 400 MG / cholecalciferol 133 UNT / magnesium oxide 167 MG Oral Tablet ORAL calcium carbonate 400 MG / cholecalciferol 133 UNT / magnesium oxide 167 MG Oral TabletOriginal Medicationcalcium carbonate 400 MG / cholecalciferol 133 UNT / magnesium oxide 167 MG Oral Tablet *Reorder from [place] 09/10/2019 Active Lysine 1000 MG Oral Tablet ORAL lysine 1000 MG Oral TabletOriginal Medicationlysine 1000 MG Oral Tablet *[facility] and Interaction Alerts* 09/10/2019 Active Plan Of Treatment No Information Insurance Providers Payer Name Payer Address Payer Phone Subscriber Number Group Number Insured Name Patient Relationship to Insured Coverage Start Date Coverage End Date [facility] [address] [place] [phone] [id number] ROSENDO CLEMONS JR Spouse - patient is the spouse of the insured
--- OUTSIDE RECORDS SUMMARY | 2025-03-25 08:13 | XMS_ITS | Clinical Summary ---
Author Organization [facility] Address [address] [place] [id number] Care Team Providers Care Order Processing Manager Name Role Phone Unavailable Primary Care Provider [...]
--- OUTSIDE RECORDS SUMMARY | 2025-03-25 08:13 | XMS_ITS | Clinical Summary ---
Author Organization [facility] Address [address] [place] [address] Phone Care Team Providers Care Rec Therapist Name Role Phone Provider, None Primary Care [...] Cervical Cancer Screening (CCS) 11/15/1989 HPV/Cotest 11/15/1989 Cologuard 11/15/2004 Colonoscopy 11/15/2004 Colorectal Cancer Screening 11/15/2004 Immunochemical Fecal Occult Blood 11/15/2004 Pneumococcal Immunization (5 0+ years) (1 of 1 - PCV) 11/15/2009 Zoster Immunization (1 of 2) 11/15/2009 SARS-COV-2 Immunization ( - 2023- season) 2024 Influenza Immunization (#1) 2025 Respiratory Syncytial Virus (RSV) Immunization (Adult) (1 - 1-dose 75+ series) 11/15/2034 Hepatitis B Immunization Aged Out No longer eligible based on patient's age to complete this topic Human Papillomavirus (HPV) Immunization Aged Out No longer eligible b ased on patient's age to complete this topic Meningococcal Immunization (ACWY) Aged Out No longer eligible based on patient's age to complete this topic Rotavirus Immunization Aged Out No lo nger eligible based on patient's age to complete this topic Care Teams Rec Therapist Relationship Specialty Start Date End Date Provider, None [place] PCP - General 12/01/16
--- OUTSIDE RECORDS SUMMARY | 2025-03-25 08:13 | XMS_ITS | Data Portability ---
Author Organization [facility] (11) Address [address] [facility] [address] [place] [address] Care Team Providers Care Tile Setter Supervisor Name Role Phone SHAUN JOSHI Referring Provider [...] Time 06/19/2018 Sleep Study completed Lamine Saha [facility]20[place]20 18 10:31:33 Imaging Results None recorded. Procedure Notes None recorded. Medical Equipment None Reported. Vitals Date Recorded Body height Body mass index (BMI) Body weight Provider Name and Address Organization Details Last Updated DateTime 06/19/2018 165.1 cm 46.6 kg/m2 391702.86 g Lamine Saha [facility] 06/20/2018 10:19:29 Social History Question Answer Notes LastModified by Organizat ion Details LastModified Time Describe Your Sleep Problem Snores A Lot, Says She Could peel [employer] [place] [employer] [place] With Her Snoring, [...] SNOMED-CT Code Diagnosis ICD10 Code Diagnosis Note [id number] [facility], [facility] [phone] [facility] [address] [place] [address] 06/19/2018 20:56:01 06/20/2018 10:17:53 Obstructive sleep apnea of adult 0508515146 103 G47.33 Health Concerns Section Related Observation LastModified by Organization Detai ls LastModified Time None Recorded Concern Status LastModified by Organization Details LastModified Time None Recorded Advance Directives Directive None Recorded Payers Insurance Date Sequence Insurance Name Policy Number Policy Marks Covered Member ID Marks Member ID Guarantor Name 06/29/2018 1 [facility] () Tawana Chaparro [id number] Tawana Chaparro OBGyn Episode No OBEpisode recorded.
--- NOTE | 2025-03-25 08:19 | ECG_ITS ---
Test Date: 2025-03-25 08:39:05 Measurements Intervals [place] Rate: 64 P: 45 AK: 146 QRS: -16 QRSD: 93 T: 45 QT: 436 QTc: 452 Interpretive Statements SINUS RHYTHM LOW QRS VOLTAGE IN PRECORDIAL LEADS POSSIBLE ANTERIOR MYOCARDIAL INFARCTIO Electronically Signed On 03-25-2025 17:24:50 CDT by Wilmer Key D.O
== END 2025-03-25 08:01 | disposition home or self-care (01) ==
LOC: ANHSURGERY 08:08
PROVIDERS: PCP Nurse Practitioner Family; Visit Provider Orthopaedic Surgery
DX: R94.31 Abnormal electrocardiogram [ECG] [EKG] (principal); E78.5 Hyperlipidemia, unspecified
CPT/HCPCS: 93005

== ENCOUNTER 2025-03-31 01:07 | Day surgery (SDC) | payer MEDICARE, OTHER, SELFPAY ==
[2025-03-24 10:37] VITALS: BMI 46.7
--- NOTE | 2025-03-24 10:44 | PC.NURSE ---
Report to the Outpatient Waiting Room, entrance under the green pavilion located off [facility], at time _0600_ on date _[id number]_. Planned Procedure Time: _0730_.? Time changes happen often and if your time is changed the preop area will call you the afternoon before. - You and your visitor will be asked to self-screen and do not enter if you have any COVID symptoms. Please call surgeon if you need to reschedule. - A mask is optional within the hospital at this time. Patients may have clear liquids (water, carbonated beverages, clear teas, apple juice) until 3 hours prior to surgery with a maximum of 20 ounces. - No food from midnight until time of surgery and no smoking, or chewing tobacco (or any form of nicotine). No chewing gum, candy or mints. Take only the following medications with a SIP of water on the morning of surgery: ___Sertraline____ DO NOT STOP ANY OF YOUR OTHER PRESCRIPTION MEDICATIONS PRIOR TO SURGERY EXCEPT THE FOLLOWING Hold all vitamins and supplements for 3 days per anesthesiologist. Medications to discontinue per physician Says Dr Nina said she could continue Celebrex until day of surgery. Date to take last dose Please no make-up, nail slovenian, hairspray, perfume, deodorant, or body powder the day of surgery.? No jewelry (including any body piercings) or valuables the day of surgery, leave them at home.? Please take a shower or bath the night before, or the morning of, surgery with an antibacterial soap.? Wear comfortable, loose fitting clothing.? - Jewelry must be removed prior to entering the operating room.? Rings and piercings that are not removed may be cut off. - The hospital will not accept responsibility for valuables.? - Please leave all valuables, including medications, at home the day of surgery. If you are going home after surgery, a licensed trencher driver must drive you home.? - NO public transportation without another adult if you receive anesthesia. - We recommend that an adult stay with you for 24 hours following discharge. - We also recommend that you do not drive, make important decision, drink alcoholic beverages, or take any drugs that were not prescribed by your health care provider for at least 24 hours after your discharge time. Follow any additional instructions given to you from your surgeon. Telephone instructions given to __Tawana___and asked if any additional questions and then verbalized understanding. Patient advised to call surgeon office or pre surgery nurse liaison [phone] if any additional questions.
--- NOTE | 2025-03-28 20:13 | P.HP_ITS ---
H&P: HPI History of Present Illness Date/Time: 03/28/25 20:13 Chief Complaint: Patient has catching locking and pain in the right knee she has failed conservative treatment has meniscal tear would like to proceed with arthroscopic intervention. Review of Systems Musculoskeletal: Musculoskeletal: Reports myalgias, Reports arthralgias, Reports joint swelling and Reports stiffness PMFSH Past Medical History Medical History Restless leg Prediabetes Hyperlipidemia Depression with anxiety Surgical History Surgical History History of tonsillectomy 2016 History of cholecystectomy Family History Family History Mother TIA (transient ischemic attack) Social History Social History Smoking status: Never smoker Alcohol intake: current Substance use: never Do You Feel Safe in your Home?: Yes Lack of Transportation: No Lack of Food: Never True Current Housing: I Have Housing Concerned About Future Housing: No Difficulty Paying Gas/Electric Bills: YES Difficulty Paying for Meds: No Currently Unemployed: No Education: High School Diploma/GED Difficulty w/ Childcare or Family Care: No Living arrangements: with family Spiritual care concerns: No Meds Home Medications and Allergies Home Medications ?Medication ?Instructions ?Recorded ?Confirmed ?Type Bifidobacterium combo no.9 1 See Rx Instructions PO .COMPLEX 12/27/24 03/24/25 History billion cell capsule,delayed release (Adult 50 Plus Probiotic Rosa) cetirizine 10 mg tablet 10 mg PO DAILY PRN allergy symptoms 12/27/24 03/24/25 History ropinirole 1 mg tablet 1 mg PO QHS 12/27/24 03/24/25 History rosuvastatin 10 mg tablet 10 mg PO DAILY 12/27/24 03/24/25 History sertraline 100 mg tablet 100 mg PO DAILY 12/27/24 03/24/25 History sertraline 50 mg tablet 50 mg PO DAILY 12/27/24 03/24/25 History valacyclovir 500 mg tablet 500 mg PO BID 12/27/24 03/24/25 History celecoxib 200 mg capsule (Celebrex) 200 mg PO DAILY #30 caps 02/11/25 03/24/25 Rx yakjgetd-ggp-enmw-FA-Ca carb-vit K 1 tablet PO DAILY 03/24/25 03/24/25 History 18 mg iron-400 mcg-500 mg tablet (One-A-Day Womens Formula) Allergies Allergy/AdvReac Type Severity Reaction Status Date / Time No Known Allergies Allergy Unknown Unverified 03/24/25 10:35 Exam Narrative: On exam she is tender medially has a positive Caitlyn's and tenderness palpation she has catching and locking with any manipulation neurologically she is intact she has pain with motion. Eyes: General: appearance normal, both eyes and all related structures Neck: Neck: supple Resp: Effort & Inspection: normal respiratory effort Cardio: Rate: regular rate Rhythm: regular rhythm Radiology Reports: Comments: Magnetic Resonance Report Signed Patient: Tawana Chaparro MRI of the right knee Clinical history: Pain Technique: Coronal proton density and proton density-weighted images, sagittal proton-density and T2 fat-sat images, and axial proton-density fat-saturated images were acquired. Findings: Anterior and posterior cruciate ligaments are intact. Medial collateral ligament and the lateral collateral ligament, as are intact. Popliteus tendon is intact. There is complex tearing of the body segment of the medial meniscus. No lateral meniscal tear seen. There is subchondral insufficiency fracture versus stress fracture at the medial tibial plateau region with amorphous surrounding marrow edema. There is high- grade chondromalacia over the patellar apex. There is patchy moderate to high- grade chondromalacia of the femoral trochlea. There is mild diffuse chondral thinning of the medial compartment. Extensor mechanism is intact. Small joint effusion present. No significant Lowery's cyst. Impression: Subchondral insufficiency fracture versus stress fracture the medial tibial plateau, with surrounding amorphous marrow edema. Complex tearing of the body segment of the medial meniscus. 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 Reviewed, dictated and finalized at [facility]. Knee X-Ray 01/08/25 Knee MRI 02/26/25 Cervical Spine X-Ray 01/08/25 Assessment and Plan Assessment and plan (1) Acute medial meniscus tear of right knee: Code(s): S83.241A - Other tear of medial meniscus, current injury, right knee, initial encounter Status: Acute Assessment and Plan: Patient has a meniscal tear right. She continues to have catching locking and pain. She has failed conservative treatment. She would like to consider arthroscopic intervention. Will proceed per her request discussed the risks, benefits, limitations, and alternatives in detail will proceed per her request.
[2025-03-31] VITALS (10 sets, daily range): BP systolic 138–192; BP diastolic 74–99; PULSE 55–72; RESP 12–17; TEMP 36.1–36.3; O2SAT 92–99; BMI 45.6
--- OUTSIDE RECORDS SUMMARY | 2025-03-31 01:11 | XMS_ITS | Continuity of Care Document ---
Author Name [facility] Organization [facility] Care Team Providers Care Ceramic Chemist Name Role Phone [facility] Unavailable Unavailable Problems Combined list of problems from Department of Defense and Veterans Affairs facilities. It does not include entries that were removed or entered in error. Problem Status Onset Date Problem Type Date of Resolution Comments Source Oral herpes simplex infection Active 024 Diagnosis 7597M-Se-Z-375 Th [facility] Encounter for screening for malignant neoplasm of colon Active 024 Diagnosis 8133O-Qf-J-375 Th [facility] Allergic rhinitis Active 024 Diagnosis 6389A-Pp-R-375 Th [facility] Depressive disorder Active 024 Diagnosis 3737D-Jg-I-375 Th [facility] Hyperlipidemia Active 024 Diagnosis 5592T-Zc-M-375 Th [facility] Restless legs Active 024 Diagnosis 1457M-Ut-W-375 Th [facility] Obstructive sleep apnea syndrome Active 024 Diagnosis 0871X-Pn-N-375 Th [facility] Pain of bilateral knee joints Active 024 Diagnosis 3879Q-Ea-S-375 Th [facility] Well adult Active 024 Diagnosis 9715O-Hp-X-375 Th [facility] Allergic rhinitis Active Condition 9322Z-Gk-K-375 Th [facility] Chronic diarrhea of unknown origin Active Condition 1348H-Ff-W-375 Th [facility] Depressive disorder Active Condition 6347Z-Ok-O-375 Th [facility] Elevated blood pressure Active Condition 1216H-Rm-N-375 Th [facility] FH: Cardiovascular disease1 Active Condition Outside Source Comment: ASA 81mg #90 1po qd x3rf ordered in [facility] 9928P-Ij-C-375 Th [facility] Hip pain Active Condition 8572F-Ql-M-37 5 Th [facility] Hyperlipidemia Active Condition 6130C-A f-C-375 Th [facility] Internal hemorrhoids Active Condition 4535F-Qh-M-37 5 Th [facility] Morbid obesity Active Condition Unknown Organization Obesity Active Condition 1654R-Fm-C-375 Th [facility] Obstructive sleep apnea syndrome Active Condition 8224O-Wf-Z-375 Th [facility] Plantar fasciitis Active Condition 3774J-Hn-I-375 Th [facility] Restless legs Active Condition 6130C-Af [...] menopause. Given pt's age will refer to hand i blocker for assessment for an EMB. Will also [...] by mouth) Ordered 2022 6130C-A f-C-375 [facility] CETIRIZINE (U/D) 10 MG ORAL TAB May cause drowsine ss.Obtai n advice for OTCs. 04/16/2024 [id number] 3 2023 90 [employer] [facility] [place] ([facility] cetirizine 10 mg oral tablet 1 tab(s), Oral, Daily, 90 tab(s), # 90 tab(s), 3 total refill(s ), [facility] Oral (given by mouth) Ordered 5 2023 90.0 6130C-A f-C-375 Th [facility] cetirizine 10 mg oral tablet 90 tab(s), 0 total refill(s ), Soft Stop Discont inued 04/17/20232022 6130C-A f-C-375 Th [facility] cetirizine 10 mg oral tablet 1 tab(s), Oral, Daily, 90 tab(s), # 90 tab(s), 3 total refill(s ), [facility], Pharmacy : [facility] Oral (given by mouth) Discont inued 05/10/2024 4 2023 90.0 6130C-A f-C-375 Th [facility] famotidine 20 mg oral tablet TAKE [...] ), Soft Stop Discont inued 04/17/20232022 6130C-A Langhar-C-375 Th [facility] famotidine 20 mg oral tablet 1 tab(s), Oral, Daily, 90 tab(s), # 90 tab(s), 3 total refill(s ), [facility], Pharmacy : [facility] Oral (given by mouth) Discont inued [...] or use exactly as directed . 04/16/2024 [id number] 3 2023 90 [employer] [facility] [place] ([facility] rOPINIRole 1 mg oral [...] Ordered 5 2023 90.0 6130C-A f-C-375 [facility] rOPINIRole 1 mg oral tablet 90 tab(s), 0 total refill(s ), Soft Stop Discont inued 04/17/20232022 61C-A -C-375 Th [facility] rOPINIRole 1 mg oral tablet 1 tab(s), Oral, Daily, 90 tab(s), # 90 tab(s), 3 total refill(s ), [facility], Pharmacy : [facility] Oral (given by mouth) Discont inued 05/10/2024 4 2023 90.0 6130CA -C-375 Th [facility] rosuvastati n 10 mg oral tablet rosuvast atin 10 mg oral tablet Start Date: 12/11/20 Stop Date: 05/10/24 Status: Disconti adriana Repeat number: 1 Discont inued 05/10/20242023 No Facilit y Access rosuvastati n 10 mg oral tablet 1 tab(s), Oral, Daily, 90 tab(s), # 90 tab(s), 3 total refill(s ), [facility], Pharmacy : [facility] Oral (given by mouth) Ordered 5 2023 90.0 6130C-A -C-375 Th [facility] rosuvastati n 10 mg oral tablet 90 tab(s), 0 total refill(s ), Soft Stop Discont inued 04/17/20232022 6130C-A -C-375 Th [facility]- [facility] rosuvastati n 10 mg oral tablet 1 tab(s), Oral, Daily, 90 tab(s), # 90 tab(s), 3 total refill(s ), [facility], Pharmacy : [facility] Oral (given by mouth) Discont inued 05/10/2024 4 2023 90.0 6130C-A -C-375 Th [facility]- [facility] sertraline (U/D) 100 MG ORAL TAB May cause drowsine ss.Take or use exactly as directed .Obtain advice for OTCs. 04/16/2024 [id number] [address] [place] [address] Medical Group [facility] [place] ([facility]) sertraline 100 mg oral tablet 1 tab(s), Oral, Daily, take with the 50mg tablet to be a total of 150mg daily, # 90 tab(s), 3 total refill(s ), [facility], Pharmacy : [facility] Oral (given by mouth) Ordered 5 2023 90.0 6130C-A f-C-375 Th [facility] sertraline 100 mg oral tablet sertrali ne 100 mg oral tablet Start Date: 05/27/21 Stop Date: 05/10/24 Status: Disconti adriana Repeat number: 1 Discont inued 05/10/20242023 No Facilit y Access sertraline 100 mg oral tablet 1 tab(s), Oral, Daily, 90 tab(s), # 90 tab(s), 3 total refill(s ), [facility], Pharmacy : [facility] Oral (given by mouth) Discont inued 05/10/20242023 90.0 6130C-A Langhar-C-375 Th [facility] sertraline 100 mg oral tablet 90 tab(s), 0 total refill(s ), Soft Stop Discont inued 04/17/20232022 6130C-A f-C-375 Th [facility] sertraline 100 mg oral tablet 1 tab(s), Oral, Daily, 90 tab(s), # 90 tab(s), 3 total refill(s ), [facility], Pharmacy : [facility] Oral (given by mouth) Discont inued 05/10/2024 2023 90.0 6130C-A f-C-375 Th [facility] sertraline 150 mg oral capsule 1 cap(s), Oral, Daily, # 90 cap(s), 3 total refill(s ), [facility], Pharmacy : [facility] Oral (given by mouth) Discont inued 05/10/20242023 90.0 6130C-A f-C-375 Th [facility] sertraline 50 mg oral tablet 1 tab(s), Oral, Daily, take with 100mg tablet to be a total of 150mg daliyy, # 90 tab(s), 3 total refill(s ), [facility] Oral (given by mouth) Ordered 5 2023 90.0 6130C-A -C-375 Th [facility] Ishan sertraline 50 mg oral [...] # 90 tab(s), 3 total refill(s ), [facility], Pharmacy : [facility] , Viral prophyla xis Oral (given by mouth) Ordered 5 2023 90.0 6130C-A -C-375 Th [facility] valACYclovi r 500 mg oral tablet 90 tab(s), 0 total refill(s ), Soft Stop Discont inued 04/17/[address] [place] [address]-C-375 [facility] valACYclovi r 500 mg oral tablet 1 tab(s), Oral, Daily, 90 tab(s), # 90 tab(s), 3 total refill(s ), [facility], Pharmacy : [facility] Oral (given by mouth) Discont inued 05/10/2024 4 2023 90.0 6130C-A -C-375 Th [facility] Allergies, Adverse Reactions, Alerts Combined list of allergies from Department of Defense and Veterans Affairs facilities. It does not include entries that were removed or entered in error. Substance Category Reaction Severity Reaction type Status Date Reported Comments Source No Known Allergies Drug allergy (disorder) active 09/18/2007 [facility] [place] ([facility]) Immunizations Combined list of available immunizations from the Department of Defense and Veterans Affairs facilities. 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 Source tetanus toxoid, reduced diphtheria toxoid, and acellular pertu is vaccine, adsorbed 1 2021 Unknown, Provider [id number] 115 [facility] ([place]) complet ed tetanus toxoid, reduced diphtheri a toxoid, and acellular pertussis vaccine, adsorbed DoD COVID-19, mRNA, LNP-S, PF, 30 mcg/0.3 mL dose, winnie-sucrose 2021 DANYELL, [employer] [place] (PFR) Not Given COVID-19, mRNA, LNP-S, PF, 30 mcg/0.3 mL dose, winnie-sucr ose DoD SARS-COV-2 (COVID-19) vaccine, mRNA, spike protein, LNP, preservative free, 30 mcg/0.3mL dose 3 2021 Unknown, Provider [id number] [employer] (PFR) complet ed SARS-COV- 2 (COVID-19 ) vaccine, mRNA, spike protein, LNP, preservat shukri free, 30 mcg/0.3mL dose DoD influenza, injectable, quadrivalent- pf 2020 zzLef t Arm [id number] 150 [facility] influenza , injectabl e, quadrival ent-pf 06/10/21 Given Ambulat ory Pharmac y Influenza, injectable, quadrivalent, preservative free 1 2020 Unknown, Provider [id number] 150 [facility] ([place]) complet ed Influenza , injectabl e, quadrival ent, preservat shukri free DoD COVID Vaccine Pfizer 2020 [id number] [employer] complet ed COVID Vaccine Pfizer 12/14/20 Given Ambulat ory Pharmac y SARS-COV-2 (COVID-19) vaccine, mRNA, spike protein, LNP, preservative free, 30 mcg/0.3mL dose 2 2020 Unknown, Provider [id number] 208 [employer] (PFR) complet ed SARS-COV- 2 (COVID-19 ) vaccine, mRNA, spike protein, LNP, preservat shukri free, 30 mcg/0.3mL dose DoD COVID Vaccine Pfizer 2020 [id number] 208 [employer] complet ed COVID Vaccine Pfizer 11/23/20 Given Ambulat ory Pharmac y SARS-COV-2 (COVID-19) vaccine, mRNA, spike protein, LNP, preservative free, 30 mcg/0.3mL dose 1 2020 Unknown, Provider [id number] 208 [employer] (PFR) complet ed SARS-COV- 2 (COVID-19 ) vaccine, mRNA, spike protein, LNP, preservat shukri free, 30 mcg/0.3mL dose DoD zoster vaccine, inactivated 2019 zzLef t Arm [id number] 187 [employer] complet ed zoster vaccine, inactivat ed 08/12/20 Given Ambulat ory Pharmac y zoster vaccine recombinant 1 2019 Unknown, Provider [id number] 187 [facility] ([place]) complet ed zoster vaccine recombina nt [...] 15-29 Severe decrease <15 Kidney failure 0055A-3 [facility] AGAP 11.00 0.00 - 15.00 04/07 N 0055A-[address] [place], [place] [address]J[facility] Chemistry Chloride 112 mmol/L 98 - 107 04/07 H 0055A-[address] [place], [place] [address]J[facility] Chemistry Glucose Lvl 103 mg/dL 74 - 99 04/07 H 0055A-[address] [place], [place] [address] Chemistry BUN 15 mg/dL 7 - 20 04/07 N 0055A-[address] [place], [place] [address]J[facility] Chemistry Potassium Lvl 4.6 mmol/L 3.5 - 5.1 04/07 N 0055A-[address] [place], [place] [address]J[facility] Chemistry CO2 26 mmol/L 22 - 29 04/07 N 0055A-[address] [place] [address] Ishan Chemistry BUN/Creat Ratio 19 mg/dL 12 - 20 04/07 N 0055A-[address] [place], [place] [address]J[facility] Chemistry Sodium 149 mmol/L 136 - 145 04/[address] [place] [address] Chemistry Calcium 9.7 mg/dL 8.4 - 10.2 04/[address] [place] [address] Chemistry Creatinine Level 0.80 mg/dL 0.57 - 1.11 04/[address] [place] [address] Chemistry Ur Creat 126 mg/dL 04/[address] [place] [address] Chemistry Ur Microalb/Ur Creat Ratio 4.8 mg/gCr 04/07 Result Comment: CORRECTED DUE TO UNIT OF MEASURE CONVERSION. [address] [place] [address] Chemistry Ur Microalbumi n 6 mg/gCr 04/07 N Interpretive Data: To minimize intra-indivi dual variation, analysis of three random urine samples collected over the course of a week has also been recommended. [address] [place] [address] Chemistry Hemoglobin A1c 5.1 % 4.0 - [...] diabetes. Because studies have repeatedly shown that ikr-hi-ujevg ol diabetes results in complication s from the disease, the goal for people with diabetes is a hemoglobin A1c less than 7%. The higher the hemoglobin A1c, the higher the risks of developing complication s related to diabetes. If confirmation is needed, consider recalling the patient and ordering Hemoglobin Electrophore sis. [address] [place] [address] Chemistry eAvg Glucose 100 mg/dL 04/[address] [place] [address] Chemistry HDL Cholesterol 63 mg/dL 40 - 59 04/07 H Interpretive Data: HDL (HIGH DENSITY LIPOPROTEIN) : ADULTS: Low: < 40 mg/dL High: >/= 60 mg/dL AGES 0 -19: Low: < 40 mg/dL Borderline Low: 40 - 45 mg/dL Acceptable: > 45 mg/dL [address] [place] [address] Chemistry LDL 89 mg/dL 100 - 130 04/07 L Interpretive Data: AGES 0-19: Desirable: < 110 mg/dL Borderline High: 110-129 mg/dL High: >/= 130 mg/dL ADULTS: Desirable: <100 mg/dL Near/above optimal: 100-130 mg/dL Borderline High: 131-159 mg/dL High: 160-189 mg/dL Very High: 190 mg/dL [address] [place] [address] Chemistry Chol/HDL 3 mg/dL 04/[address] [place] [address] Chemistry Cholesterol Total 158 mg/dL 04/07 N Interpretive Data: According to the [place] [employer]: AGES 0-19: Desirable: < 170 mg/dL Borderline High: 170-199 mg/dL High Blood Cholesterol: >/= 200 mg/dL ADULTS: Desirable < 200 mg/dL Borderline High: 200-239 mg/dL High Blood Cholesterol: >/= 240 mg/dL [address] [place] [address] Chemistry LDL/HDL 1 04/[address] [place] [address] Chemistry Triglycerid es 120 mg/dL 7 - 149 04/07 N Interpretive Data: AGES 0-9: Desirable: < 75 mg/dL Borderline High: 75-99 mg/dL High: >/= 100 mg/dL AGES 10-19: Desirable: < 90 mg/dL Borderline High: 90-129 mg/dL High: >/= 130 mg/dL ADULTS: Desirable: < 150 mg/dL Borderline High: 150-199 mg/dL High: >/= 240 mg/dL Very High: >/= 500 mg/dL [address] [place] [address] Vital Signs Combined list of inpatient and outpatient Vital Signs from Department of Defense and Veterans Affairs, ranging from 12 months to all on record, depending upon the facility. Vital Sign Value Date Comments Source Blood Pressure Manual Automatic 04/17/2023 20:40:00 1232Q-Ms-I-375[facility] Peripheral Pulse Rate 81 bpm 04/17/2023 20:40:00 8164L-Nu-X-375Th [facility] Mean Arterial Pressure, Calc 96 mm[Hg] 04/17/2023 20:40:00 7586X-Am-V-3 [facility]Th [facility] Systolic Blood Pressure 129 mm[Hg] 04/17/2023 20:40:00 1706W-Pn-R-375Th [facility] Diastolic Blood Pressure 79 mm[Hg] 04/17/2023 20:40:00 5661V-Da-X-375Th [facility] Respiratory Rate 16 br/min 04/17/2023 20:40:00 9880Q-Oi-V-375Th [facility] BP Site Left arm 04/17/2023 20:40:00 6130C -Af-C-375Th [facility] Peripheral Pulse Rate 64 bpm 03/23/2023 14:54:00 8071X-Gq-A-375Th [facility] BP Site Right arm 03/23/2023 14:54:00 6130C -Af-C-375Th [facility] Blood Pressure Manual Automatic 03/23/2023 14:54:00 4047L-Ve-T-375Th [facility] Systolic Blood Pressure 140 mm[Hg] 03/23/2023 14:54:00 1606Z-Ah-R-375Th [facility] Diastolic Blood Pressure 83 mm[Hg] 03/23/2023 14:54:00 5205F-Rw-I-375Th [facility] Mean Arterial Pressure, Calc 102 mm[Hg] 03/23/2023 14:54:00 9291G-Mm-B-3 75Th [facility] Peripheral Pulse Rate 59 bpm 05/10/2024 14:59:00 4913M-Zl-K-375Th [facility] Respiratory Rate 18 br/min 05/10/2024 14:59:00 5928M-Tr-G-375Th [facility] Mean Arterial Pressure, Calc 101 mm[Hg] 05/10/2024 14:59:00 9028Q-Dv-F-3 75Th [facility] BP Site Right arm 05/10/2024 14:59:00 6130C -Af-C-375Th [facility] Systolic Blood Pressure 143 mm[Hg] 05/10/2024 14:59:00 6182R-Ne-Q-375Th [facility] Diastolic Blood Pressure 80 mm[Hg] 05/10/2024 14:59:00 7109X-Mj-W-375Th Anette Blood Pressure Manual Automatic 05/10/2024 14:59:00 3559M-Ef-I-[facility] Kathy-Ishan Encounters Combined list of: 1) Encounters from Department of Veterans Affairs facilities going backup to the last 18 months, not all VA inpatient encounters are included; 2) Encounters from the Department of Defense facilities going backup to 280 months. Location Location Details Encounter Type Encounter Number Reason For Visit Attending Provider ADM Date DC Date Status Disposition Source [address] [place] [address])([facility] Practice Non-GME FHI2) OUTPATIENT [id number] cough/c hest congest EMERALD PEARCE 10/20 Released w/o Limitations [address] [place] [address])(F amily Practic e Non-GME FHI2) [address] [place] [address])([facility] rishabh Practice Non-GME FHI1) TELE CONSULT [id number] Needs paper filled out. CRISTOFER JACOB 12/[address] [place] [address])(F amily Practic e Non-GME FHI1) [address] [place] [address])([facility] rishabh Practice Non-GME FHI1) TELE CONSULT [id number] CRISTOFER JACOB 01/[address] [place] [address])(F amily Practic e Non-GME FHI1) [address] [place] [address])(Fam rishabh Practice Non-GME FHI1) TELE CONSULT [id number] RX REFILL DESTINEE JACKSON 07/[address] [place] [address])(F amily Practic e Non-GME FHI1) [address] [place] [address])(Fam rishabh Practice Non-GME FHI1) OUTPATIENT [id number] PROD COUGH, S/T MIKEY GONZALEZ 08/31 Released w/o Limitations [address] [place] [address])(F amily Practic e Non-GME FHI1) [address] [place] [address])(Fam rishabh Practice Non-GME FHI1) OUTPATIENT [id number] POSS LIZZIE WHITE 12/07 Released w/o Limitations [address] [place] [address])(F amily Practic e Non-GME FHI1) [address] [place] [address] Ishan [facility])(Fam rishabh Practice Non-GME FHI1) OUTPATIENT [id number] hip and foot LIZZIE DOE 01/09 Released w/o Limitations [address] [place] [address] Ishan [facility])(F amily Practic e Non-GME FHI1) [address] [place] [address])(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) OUTPATIENT [id number] pap smear ARIES ISLAS 01/11 Released w/o Limitations [address] [place] [address] Ishan [facility])(G ynecolo gy) [address] [place] [address] Ishan B [facility]Fam rishabh Practice Non-GME FHI1) OUTPATIENT [id number] med fol LIZZIE DOE 08/07 Released w/o Limitations [address] [place] [address])(F amily Practic e Non-GME FHI1) [address] [place] [address] Ishan [facility])(Fam rishabh Practice Non-GME FHI1) TELE CONSULT [id number] Needs med refill CRISTOFER PEREYRA 02/[address] [place] [address])(F amily Practic e Non-GME FHI1) [address] [place] [address])(Fam rishabh Practice Non-GME FHI1) OUTPATIENT [id number] annual exam, med refill, lab work, meet [facility] NIKUNJUYEN PÉREZ 03/13 Released w/o Limitations [address] [place] [address] Ishan [facility])(F amily Practic e Non-GME FHI1) [address] [place] [address])(Fam rishabh Practice Non-GME FHI1) TELE CONSULT [id number] Follow appoint KARISSA Hernandez 03/[address] [place] [address] Ishan [facility])(F amily Practic e Non-GME FHI1) [address] [place] [address])(Fam rishabh Practice Non-GME FHI1) OUTPATIENT [id number] f/u [facility] 03/28 Released w/o Limitations [address] [place], [place] [address]B [facility]F amily Practic e Non-GME FHI1) [address] [place], [place] [address]B [facility])(Fam rishabh Practice Non-GME FHI1) OUTPATIENT [id number] F/u on medicat ion per UYEN Ramirez 04/17 Released w/o Limitations [address] [place] [address])(F amily Practic e Non-GME FHI1) [address] [place] [address])(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) OUTPATIENT [id number] MENORRH AGIA TITA HANNA 04/20 Released w/o Limitations [address] [place] [address])(G ynecolo gy) [address] [place] [address])([facility]) OUTPATIENT [id number] ANA LAURA AVENDANO 05/29 Released w/o Limitations [address] [place] [address])(N utritio nal Medicin e) [address] [place] [address])([facility] Practice Non-GME FHI1) TELE CONSULT [id number] Request Change KARISSA FRANCO 07/[address] [place] [address])(F amily Practic e Non-GME FHI1) [address] [place] [address])(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) TELE CONSULT [id number] change TITA Argueta 07/[address] [place] [address])(G ynecolo gy) [address] [place] [address])([facility] Practice Non-GME FHI1) OUTPATIENT [id number] cell#; f/u poss KILEY Oneill 08/17 Released w/o Limitations [address] [place] [address])(F amily Practic e Non-GME FHI1) [address] [place] [address])([facility] rishabh Practice Non-GME FHI2) TELE CONSULT [id number] meds request - KARISSA Tobin 09/[address] [place] [address])(F amily Practic e Non-GME FHI2) [address] [place] [address])([facility] rishabh Practice Non-GME FHI1) OUTPATIENT [id number] MARIA BULL Demian 09/18 Released w/o Limitations [address] [place] [address] Group Ishan RUBY[facility])(F amily Practic e Non-GME FHI1) [facility] Ishan B [facility] Practice Non-GME FHI1) TELE CONSULT [id number] call back CT resutls CASANDRA PEDROZA 09/[address] [place] [address] Ishan RUBY[facility])(F amily Practic e Non-GME FHI1) [address] [place] [address] Ishan B [facility] Practice Non-GME FHI1) OUTPATIENT [id number] f/u HTN and anxiety KILEY ROWE 10/02 Released w/o Limitations [address] [place] [address] Group Ishan B [facility])(F amily Practic e Non-GME FHI1) [address] [place], [place] [address]B [facility])([facility] Team 3) OUTPATIENT [id number] medicat ion [id number] EDVIN MONIQUE 12/02 Released w/o Limitations [address] [place] [address] Ishan RUBY[facility] Team [address]) [address] [place] [address] Ishan B [facility])(War rior Op Med Cln Tm A Ad) TELE CONSULT [id number] lab results CRISTOFER JACOB 12/[address] [place] [address] Group Ishan B [facility])(W arrior Op Med Cln Tm A Ad) [address] [place], [place] [address]B [facility])([facility] Team 3) TELE CONSULT [id number] call back lab results CASANDRA PEDROZA Farrah 12/[address] [place] [address] Ishan B [facility])([facility] Team 3) [address] [place] [address] Ishan B [facility])([facility] Team 3) TELE CONSULT [id number] [facility]/ rx request s ASHELY PINEDA 02/[address] [place] [address] [employer] [facility] Team 3) [address] [place] [address] Ishan B [facility])([facility] Team 3) OUTPATIENT [id number] Request ing dosage inc of citalop angelia EDVIN MONIQUE 02/16 Released w/o Limitations [address] [place] [address] [employer] [facility])([facility] Team 3) [address] [place] [address])([facility] Team 3) TELE CONSULT [id number] med refill - PCM CASANDRA Vega 04/[address] [place] [address])([facility] Team 3) [address] [place] [address])([facility] Team 3) OUTPATIENT [id number] f/u depress ion/pos s med change KILEY ROWE E 05/21 Released w/o Limitations [address] [place] [address])([facility] Team 3) [address] [place] [address])([facility] Team 3) OUTPATIENT [id number] PAIN IN RIGHT SHOULDE [id number] [phone] KILEY ROWE E 09/25 Released w/o Limitations [address] [place] [address])([facility] Team 3) [address] [place] [address])([facility] Team 3) TELE CONSULT [id number] PCM - Dr. Rowe, request s appoint ment DENISSE ADLER 09/[address] [place] [address])([facility] Team 3) [address] [place] [address])([facility] Team 3) OUTPATIENT [id number] well woman / pap KILEY ROWE 10/16 Released w/o Limitations [address] [place] [address])([facility] Team 3) [address] [place] [address])([facility] Team 3) TELE CONSULT [id number] Audiono michelle-lab results KILEY ROWE 10/[address] [place] [address])([facility] Team 3) [address] [place] [address])([facility] Team 3) TELE CONSULT [id number] Info T Con SHADY Aguila 02/[address] [place] [address] Ishan [facility])([facility] Team 3) [address] [place] [address] [facility])([facility] Team 3) OUTPATIENT [id number] pain in neck and shoulde r x 2 months TYSON CALVIN 04/19 Released w/o Limitations [facility] [employer]an RUBYB ([facility])([facility] Team 3[facility] Ishan RUBYB ([facility])([facility] Team 3) TELE CONSULT [id number] Nikunj haynes for echo cardio gram. [facility] Pt number [phone] PATRIC ALMONTE 06/17 Referred for Appointment [address] [place] [address] Ishan TUNGB ([facility])([facility] Team 3) [address] [place] [address] [employer] [facility]Fam rishabh Med Tm B Non-AD BCC) TELE CONSULT [id number] weekend exchang e call USHA AJIN Demian 07/[address] [place] [address] [employer] TUNGB ([facility])(F amily Med Tm B Non-AD BCC) [address] [place] [address] Ishan [facility] [facility]Car diology ([facility])) OUTPATIENT [id number] murmur LIPOFFJEREMÍAS I 07/13 Released w/o Limitations [address] [place] [address] Ish[employer] TUNGB ([facility])(C ardiolo gy ([facility])) [address] [place] [address] Ishan TUNGB [facility])([facility] Team 3) TELE CONSULT [id number] Nikunj /[phone] eds meds refill to [id number] PATRIC ALMONTE 07/[address] [place] [address] Group [employer] RUBYB ([facility])([facility] Team 3) [address] [place] [address] Ishan [employer] [facility])([facility] Team 3) OUTPATIENT [id number] f/u to echo [phone] TYSON CALVIN 08/25 Released w/o Limitations [facility] Ishan RUBYB ([facility])([facility] 3) [facility] Medical [facility] Ishan RUBYB [facility] Team 3) TELE CONSULT [id number] lab results - PCM YESSENIA Brower 08/26 Other Not Elsewhere Classified [facility] [employer] ([facility])([facility] Team 3) [address] [place] [address] [employer] [facility] Team 3) TELE CONSULT [id number] new meds not working [phone] YESSENIA FITZPATRICK 08/31 Referred for Appointment [facility] [employer] TUNGB ([facility])([facility] 3) [facility] [employer] ([facility])([facility] Team 3) OUTPATIENT [id number] sinus.. .[phone] [id number] RAINESMARY LOUKETTY A 12/23 Released w/o Limitations [facility] [employer] ([facility])([facility] 3) [facility] [employer] ([facility])([facility] Team 3) TELE CONSULT [id number] F/u labs YANNA KETTY A 12/23 [facility] [employer] ([facility])([facility] Team 3) [facility] [employer] ([facility])([facility]) OUTPATIENT [id number] obesity [facility] RAPEL[facility] 01/06 Released w/o Limitations [employer] ([facility])(N utriti nal Medicin e) [facility] [employer] ([facility])([facility]) OUTPATIENT [id number] obesity F/U [facility] JARAD 02/07 Released w/o Limitations [facility] [employer] ([facility])(N utriti nal Medicin e) [facility] [employer] ([facility])([facility] Team 3) OUTPATIENT [id number] sinus infecti on [id number] TYSON CALVIN 04/06 Released w/o Limitations [address] [place] [address] Group [employer] ([facility])([facility] Team 3) [facility] [employer] ([facility])([facility] Team 3) TELE CONSULT [id number] Pt on vacatio n and forget to take meds please call @ [phone] [facility] YESSENIA FITZPATRICK 04/11 [employer] ([facility])([facility] Team 3) [employer] ([facility])([facility] Team 3) OUTPATIENT [id number] f/u for cholest david and pre-shayla betes [id number] LAWANDA LOVING 03/14 Released w/o Limitations [employer] ([facility])([facility] Team 3) [facility] [employer] ([facility])(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) OUTPATIENT [id number] well woman exam/58 [id number] ESTEE DALTON 05/03 Released w/o Limitations [facility]G ynecolo gy) [address] [place] [address])(Ndo tt [facility] Team 3) TELE CONSULT [id number] Notes Entered by: GEN ROY 25 Jun 2012 1042 ------- ------- ------- ------- -- Rx Danis haynes/Carly [phone] BARTOLO ARAIZA 06/[address] [place] [address])([facility] Team 3) [address] [place] [address])(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) TELE CONSULT [id number] Notes Entered by: DERRICK FLORES 25 Jun 2012 1057 ------- ------- ------- ------- -- ESTEE Garrison 06/[address] [place] [address])(G yleonelcocarla gy) [address] [place] [address])(Ndo tt [facility] Team 3) OUTPATIENT [id number] f/u for cholest oral labs [id number] LAWANDA LOVING 07/31 Released w/o Limitations [address] [place] [address])([facility] Team 3) [address] [place] [address])(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) OUTPATIENT [id number] f/u prempro /[phone] ESTEE DALTON 08/03 Released w/o Limitations [address] [place], [place] [address]B [facility])(G ynecolo gy) [facility])(War rior Op Med Cln Tm A Ad) OUTPATIENT [id number] would like to change depress ion and cholest david medicat ion [phone] KAVYA FINNEY 03/25 Released w/o Limitations [address] [place] [address] [employer] [facility]W arrior Op Med Cln Tm A Ad) [address] [place], [place] [address]B [facility])(War rior Op Med Cln Tm A Ad) OUTPATIENT [id number] rash on neck [phone] SAMARIA CREWS 05/16 Released w/o Limitations [address] [place] [address])([facility] Tm A Ad) [address] [place] [address])([facility] Tm A Ad) OUTPATIENT [id number] annual checkup , discuss pain in both feet, right knee [phone] KAVYA FINNEY 07/29 Released w/o Limitations [address] [place] [address])([facility] Tm A Ad) [address] [place] [address])([facility] Tm A Ad) OUTPATIENT [id number] facial pain, sore throat, sinus congest ion [id number] NED CONNELLY 10/07 Released w/o Limitations [address] [place] [address])([facility] Cl[facility] Tm A Ad) [address] [place] [address])(Med ication Refill Clinic) TELE CONSULT [id number] Notes Entered by: SAGRARIO WHYTE ELS 09 Nov 2015 1338 ------- ------- ------- ------- -- Med Bridge/ /Colane se//[phone] RIVAS MEJIA 11/[address] [place] [address])([facility]) [address] [place] [address])(Fam rishabh Med Tm B Non-AD BCC) TELE CONSULT [id number] Notes Entered by: Ganga YAO 19 Nov 2015 1447 ------- ------- ------- ------- -- SX - R Eye Swollen , drainag e / Colanes e / RENA BEST 11/18 Referred for Appointment [address] [place] [address])(F amily Med Tm B Non-AD BCC) [address] [place] [address])(Fam rishabh Med Tm B Non-AD BCC) OUTPATIENT [id number] right foot pain,me d review [phone] SAMARIA CREWS 12/08 Released w/o Limitations [address] [place] [address] [facility])(F amily Med Tm B Non-AD BCC) [address] [place] [address] [facility])(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) OUTPATIENT [id number] WWE/Pap RADHA MARLOW 12/15 Released w/o Limitations [address] [place] [address] [facility])(G ynecolo gy) [address] [place] [address] [facility])(Fam rishabh Med Tm B Non-AD BCC) TELE CONSULT [id number] Notes Entered by: LILLI GAYTAN 11 Feb 2016 1013 ------- ------- ------- ------- -- Network Results -RADIOL OGY 02/08/16 SCREEN MAMMO SDG SAMARIA CREWS 02/[address] [place] [address])(F amily Med Tm B Non-AD BCC) [address] [place] [address])(War rior Op Med Cln Tm A Ad) TELE CONSULT [id number] Notes Entered by: SAMARIA CREWS 11 Feb 20162007 ------- ------- ------- ------- -- Followu p on mammogr RENA Garcia 02/11 Referred for Appointment [address] [place] [address] [facility])(W arrior Op Med Cln Tm A Ad) [address] [place] [address] [facility])(Fam rishabh Med Tm B Non-AD BCC) TELE CONSULT [id number] Notes Entered by: LUKAS SHARLENE Farooq 22 Mar 2016 0720 ------- ------- ------- ------- -- Network Results -RADIOL OGY 03/21/16 DX MAMMO/R T BRST US SDG SHAUN FERNANDEZ 03/[address] [place] [address] [facility])(F amily Med Tm B Non-AD BCC) [address] [place] [address])(War rior Op Med Cln Tm A Ad) TELE CONSULT [id number] Notes Entered by: ROSA YIP 01 Nov 2016 1020 ------- ------- ------- ------- -- Colanes e/ Per Chelsea Ramirez/JIGNESH Lomax 11/01 Other Not Elsewhere Classified [address] [place] [address] [facility])(W arrior Op Med Cln Tm A Ad) [address] [place] [address] [facility])(Fam rishabh Med Tm B Non-AD BCC) TELE CONSULT [id number] Notes Entered by: JOHANN GUADARRAMA 02 Dec 2016 1042 ------- ------- ------- ------- -- F/U after ER Visit / Colanes e / - sgj JIGNESH GONZALES 12/02 Released to [facility] [address] [place] [address])(F amily Med Tm B Non-AD BCC) [address] [place] [address])(Fam rishabh Med Tm B Non-AD BCC) OUTPATIENT [id number] Headach e/cough /sneezi ng/nasa l congest ion/tir ed [id number] DAMIAN ESCALONA 01/18 Released w/o Limitations [address] [place] [address])(F amily Med Tm B Non-AD BCC) [address] [place] [address])(Fam rishabh Med Tm B Non-AD BCC) OUTPATIENT [id number] Itchy rash on arms and leg, [phone] SHAUN FERNANDEZ 12/21 Released w/o Limitations [address] [place] [address])(F amily Med Tm B Non-AD BCC) [address] [place] [address])(Sco tt MTF OP) TELE CONSULT [id number] Notes Entered by: KEEGAN CHAHAL 25 Dec 2017 1416 ------- ------- ------- ------- -- Med Refill - Colanes e - [id number] GUI Mondragon 12/[address] [place] [address])(S cott CTF OP) [facility] [employer] [place] ([facility])(Fam rishabh Med Tm B Non-AD BCC) OUTPATIENT [id number] *[phone] - annual check up / sleep issues SHAUN FERNANDEZ Reza 02/20 Released w/o Limitations [address] [place] [address] Group [employer] [place] ([facility])(F amily Med Tm B Non-AD BCC) [address] [place] [address] [facility] [place] [facility])(War rior Op Med Cln Tm A Ad) OUTPATIENT [id number] F/U for medicat ions [id number] BOBBY, ALRIA OPENA 07/10 Released w/o Limitations [address] [place] [address] Group [facility] [place] [facility])(W arrior Op Med Cln Tm A Ad) [address] [place] [address] Group [employer] [place] [facility])(War rior Op Med Cln Tm A Ad) TELE CONSULT [id number] Notes Entered by: ST JARAD WALTER 17 Sep 2019 0825 ------- ------- ------- ------- -- Network results Podiatr y 020 SAD BOBBY, ALRIA OPENA 09/[address] [place] [address] Group [facility] [place] [facility])(W arrior Op Med Cln Tm A Ad) [address] [place] [address] Group [facility] [place] [facility])(Sco tt [facility] Fam Res Tm Green) OUTPATIENT [id number] 3 labs and med renewal s in person [phone] ANITA MEJIA 12/07 Released w/o Limitations [address] [place] [address] Group [facility] [place] [facility]S cott [facility] Fam Res Tm Green) [facility] Ishan JODEE [facility])(Sco tt [facility] Fam Res Tm Green) OUTPATIENT [id number] well woman /pap and check BP in person ATILIO LIGHT 12/21 Released w/o Limitations [address] [place] [address] Group Ishan T[place]icol[place] [facility])(S cott [facility] Fam Res Tm Green) [address] [place] [address] Group [facility]an [place] [facility])(Sco tt [facility] Fam Res Tm Green) TELE CONSULT [id number] Notes Entered by: Gissell LANE 22 Dec 2020 0935 ------- ------- ------- ------- -- Network results Physica l Therapy 021 ANITA GORE 12/22 Released to Self Care [address] [place] [address])(S cott [facility] Fam Res Tm Green) [address] [place] [address])(Sco tt [facility] Fam Res Tm Green) TELE CONSULT [id number] 4 Notes Entered by: Georgia LIGHT 23 Dec 2020 1214 ------- ------- ------- ------- -- Lab results ATILIO LIGHT 12/23 Released to Self Care [address] [place] [address])(S [facility] Fam Res Tm Green) [address] [place] [address])(Sco tt [facility] Fam Res Tm Green) TELE CONSULT [id number] Notes Entered by: CHELY PABON 19 Jan 2021 0800 ------- ------- ------- ------- -- Network results Physica l Therapy 021 ANITA EASON 01/19 Released to Self Care [address] [place] [address])(S [facility] Fam Res Tm Green) [address] [place] [address])(Sco tt [facility] Fam Res Tm Green) TELE CONSULT [id number] Notes Entered by: JONATHAN IGNACIO 14 Apr 2021 1424 ------- ------- ------- ------- -- Med Renewal Request / Ce/ - SREEKANTH Davison 04/14 Referred for Appointment [address] [place] [address])(S cott [facility] Fam Res Tm Green) [address] [place] [address])(Sco tt [facility] FAMRES Tm Blue) OUTPATIENT [id number] med refill/ f/uAnil DELL MORRISSEY 04/15 Released w/o Limitations [address] [place] [address] Ishan TUNGB ([facility])(S cott [facility] FAMRES Tm Blue) [address] [place] [address] [facility] ([facility])(Sco tt [facility] FAMRES Tm Blue) OUTPATIENT [id number] Anxiety and GERD F/U DELL MORRISSEY N 05/26 Released w/o Limitations [address] [place] [address] Ishan TUNGB ([facility])(S cott OF FAMRES Tm Blue) [address] [place] [address] Ishan TUNGB [facility])(Sco tt [facility] FAMRES Tm Blue) OUTPATIENT [id number] Virtual Medicat ion F/u [id number] DELL MORRISSEY N 06/24 Released w/o Limitations [address] [place] [address] Ishan [place] ([facility])(S cott [facility] FAMRES Tm Blue) [address] [place] [address] Ishan TUNGB [facility])(Sco tt [facility] FAMRES Tm Blue) OUTPATIENT [id number] Virtual Medicat ion f/u DELL MORRISSEY N 07/27 Released w/o Limitations [address] [place] [address] Ish[place] ([facility])(S cott [facility] FAMRES Tm Blue) [address] [place] [address] Ishan [place] [facility])(Sco tt [facility] Fam Res Tm Green) TELE CONSULT [id number] Notes Entered by: CLAIRE KING 03 Jan 2022 1028 ------- ------- ------- ------- -- Rx refill/ Gar / PALMIRA KING 01/03 Other Not Elsewhere Classified [address] [place] [address] [place] ([facility])(S cott [facility] Fam Res Tm Green) [address] [place] [address] [place] [facility])(Sco tt [facility] Fam Res Tm Green) OUTPATIENT [id number] F2F Prescri ption Refills /Sciati c LUIS ANTONIO DOUGLAS 02/04 Released w/o Limitations [address] [place] [address] [place] ([facility])(S cott [facility] Fam Res Tm Green) [address] [place] [address] Ishan [place] [facility])(Sco tt [facility] Fam Res Tm Green) OUTPATIENT [id number] right foot pain and bilater al pain F2F ANITA MEJIA M 07/27 Released w/o Limitations [address] [place] [address] Ishan Nicolle [facility])(S cott [facility] Damon) [address] [place] [address] Ishan [facility])(Sco tt [facility]) TELE CONSULT [id number] Notes Entered by: NICOLE NIXON 03 Oct 2022 1505 ------- ------- ------- ------- -- k Results Podiatr y 022 EGW ANITA MEJIA M 10/03 Released to Self Care [address] [place] [address])(S cott [facility] Damon) [address] [place] [address] [facility])(Ndo tt [facility]) TELE CONSULT [id number] Notes Entered by: NICOLAS GARZA 05 Oct 2022 1317 ------- ------- ------- ------- -- Network Results Podiatr y 023 HLW ANITA MEJIA M 10/05 Released to Self Care [address] [place] [address] Ish[facility])(S [facility] Damon) [address] [place] [address] Ish[facility])(Ndo tt [facility]) TELE CONSULT [id number] Notes Entered by: Echo LAWTON 25 Jan 2023 0944 ------- ------- ------- ------- -- RX Renewal 6 days /Farradha l/ PALMIRA KING 01/25 Referred for Appointment [address] [place] [address] Ishan [facility])(S cott [facility]) [id number] [place] [address] [id number] Allergi c rhiniti s, unspeci fied,De pressio [...] Disposition: Home or Self Care [id number] [facility] Procedures Combined list of: 1) Procedures from Department of Veterans Affairs facilities going back up to thelast 18 months, not all VA non-surgical procedures are included; 2) All procedures from the Department of Defense facilities. Procedure Procedure Type Code Date Perfomer Comments Sourc e No data available for this section Ambulatory Pharmacy HEALTH BEHAVIOR ASSESSMENT, OR RE-ASSESSMENT (IE, HEALTH-FOCUSED CLINICAL INTERVIEW, BEHAVIORAL OBSERVATIONS, CLINICAL DECISION MAKING) 07/28/2021 [facility] BRIEF EMOTIONAL/BEHAVIORAL ASSESSMENT (EG, DEPRESSION INVENTORY, ATTENTION-DEFICIT/HYPE RACTIVITY DISORDER [ADHD] SCALE), WITH SCORING AND DOCUMENTATION, PER STANDARDIZED INSTRUMENT 06/25/2021 [facility] BRIEF EMOTIONAL/BEHAVIORAL ASSESSMENT (EG, DEPRESSION INVENTORY, ATTENTION-DEFICIT/HYPE RACTIVITY DISORDER [ADHD] SCALE), WITH SCORING AND DOCUMENTATION, PER STANDARDIZED INSTRUMENT 05/27/2021 [facility] BRIEF EMOTIONAL/BEHAVIORAL ASSESSMENT (EG, DEPRESSION INVENTORY, ATTENTION-DEFICIT/HYPE RACTIVITY DISORDER [ADHD] SCALE), WITH SCORING AND DOCUMENTATION, PER STANDARDIZED INSTRUMENT 04/15/2021 [facility] CYTOPATHOLOGY, SMEARS, CERVICAL OR VAGINAL, UP TO THREE SMEARS; SCREENING BY PERSONAL LINES ADVISOR UNDER PHYSICIAN SUPERVISION 12/23/2020 [facility] ONLINE ASSESS &MANAG SERV PROVIDE,A QUAL NONPHYS HCP TO AN ESTABLISHED PAT/GUARDIAN,NOT ORIGINAT FRM RELAT ASSESS &MANAG SERV PROVIDE W/IN THE PREV 7 DAYS,USE THE INTERNET/SIMILAR PCS [employer] [facility] 02/20/2018 [facility] TELE ASSESS & MGT SRV PROV QUAL NONPHYS HLTH CARE PRO TO EST PAT,PARENT,GUARD NOT ORIG REL ASSESS & MGT SRV PROV W/IN PREV 7 DAYS NOR LEAD ASSESS & MGT SRV/PX W/IN NXT 24 HR/SOON APT;5-10 MIN MED DIS 12/25/2017 [facility] TELE ASSESS & MGT SRV PROV QUAL NONPHYS HLTH CARE PRO TO EST PAT,PARENT,GUARD NOT ORIG REL ASSESS & MGT SRV PROV W/IN PREV 7 DAYS NOR LEAD ASSESS & MGT SRV/PX W/IN NXT 24 HR/SOON APT;5-10 MIN MED DIS 12/02/2016 [facility] SCREENING PAPANICOLAOU SMEAR; OBTAINING, PREPARING AND CONVEYANCE OF CERVICAL OR VAGINAL SMEAR TO LABORATORY 12/16/2015 DoD TELE ASSESS & MGT SRV PROV QUAL NONPHYS HLTH CARE PRO TO EST PAT,PARENT,GUARD NOT ORIG REL ASSESS & MGT SRV PROV W/IN PREV 7 DAYS NOR LEAD ASSESS & MGT SRV/PX W/IN NXT 24 HR/SOON APT;5-10 MIN MED DIS 11/19/2015 [facility] REMOVAL OF SKIN TAGS, MULTIPLE FIBROCUTANEOUS TAGS, ANY AREA; UP TO AND INCLUDING 15 LESIONS 03/14/2012 [facility] MEDICAL NUTRITION THERAPY; RE-ASSESSMENT AND INTERVENTION, INDIVIDUAL, [id number] WITH THE PATIENT, EACH 15 MINUTES 02/07/2011 [facility] MEDICAL NUTRITION THERAPY; INITIAL ASSESSMENT AND INTERVENTION, INDIVIDUAL, [id number] WITH THE PATIENT, EACH 15 MINUTES 01/06/2011 [facility] ELECTROCARDIOGRAM, ROUTINE ECG WITH AT LEAST 12 LEADS; WITH INTERPRETATION AND REPORT 12/23/2010 DoD TELE ASSESS & MGT SRV PROV QUAL NONPHYS HLTH CARE PRO TO EST PAT,PARENT,GUARD NOT ORIG REL ASSESS & MGT SRV PROV W/IN PREV 7 DAYS NOR LEAD ASSESS & MGT SRV/PX W/IN NXT 24 HR/SOON APT;5-10 MIN MED DIS 07/29/2010 DoD ECHOCARDIOGRAPHY,TRANS THORACIC,REAL-TIME W IMAGE DOCUMENTATION (2D),INCLUDES M-MODE RECORDING,WHEN PERFORMED,COMPLETE,WIT H SPECTRAL DOPPLER ECHOCARDIOGRAPHY,AND W COLOR FLOW DOPPLER ECHOCARDIOGRAPHY 07/13/2010 DoD TELE ASSESS & MGT SRV PROV QUAL NONPHYS HLTH CARE PRO TO EST PAT,PARENT,GUARD NOT ORIG REL ASSESS & MGT SRV PROV W/IN PREV 7 DAYS NOR LEAD ASSESS & MGT SRV/PX W/IN NXT 24H/SOON APT; 11-20 MIN MED DIS 06/17/2010 DoD SCREENING PAPANICOLAOU SMEAR; OBTAINING, PREPARING AND CONVEYANCE OF CERVICAL OR VAGINAL SMEAR TO LABORATORY 10/16/2009 DoD TELE ASSESS & MGT SRV PROV QUAL NONPHYS HLTH CARE PRO TO EST PAT,PARENT,GUARD NOT ORIG REL ASSESS & MGT SRV PROV W/IN PREV 7 DAYS NOR LEAD ASSESS & MGT SRV/PX W/IN NXT 24 HR/SOON APT;5-10 MIN MED DIS 04/27/2009 [facility] MEDICAL NUTRITION THERAPY; GROUP (2 OR MORE INDIVIDUAL(S)), EACH 30 MINUTES 05/15/2007 [facility] [facility] ENDOMETRIAL SAMPLING (BIOPSY) WITH OR WITHOUT ENDOCERVICAL SAMPLING (BIOPSY), WITHOUT CERVICAL DILATION, ANY METHOD (SEPARATE PROCEDURE) 04/20/2007 [facility] SCREENING PAPANICOLAOU SMEAR; OBTAINING, PREPARING AND CONVEYANCE OF CERVICAL OR VAGINAL SMEAR TO LABORATORY 03/13/2007 [facility] SCREENING PAPANICOLAOU SMEAR; OBTAINING, PREPARING AND CONVEYANCE OF CERVICAL OR VAGINAL SMEAR TO LABORATORY 01/11/2006 [facility] CULTURE, PRESUMPTIVE, PATHOGENIC ORGANISMS, SCREENING ONLY 12/07/2005 [facility] UNLISTED SPECIAL SERVICE, PROCEDURE OR REPORT 10/15/2004 [facility] SCREENING PAPANICOLAOU SMEAR; OBTAINING, PREPARING AND CONVEYANCE OF CERVICAL OR VAGINAL SMEAR TO LABORATORY 07/30/2004 [facility] SCREENING PAPANICOLAOU SMEAR; OBTAINING, PREPARING AND CONVEYANCE OF CERVICAL OR VAGINAL SMEAR TO LABORATORY 08/14/2003 [facility] Social History Combined list of available smoking, tobacco, and other social history from [facility] Defense and [facility] facilities. Social History Type Response Date Comment Sour e Sex Representation Female (finding) 06/28/2021 Unknown Organization Tobacco Cigarette use: Never-cigarette user. Other Tobacco use: Never-other tobacco user (not cigarettes). Ambulatory Pharmacy Sexual Orientation Amb[facility] Pharmacy Gender identity Ambulator y Pharmacy This section is an empty social history section. [facility] Assessment and Plan Combined list of future care activities from Department of Defense and Veterans Affairs facilities (e.g., assessment and plan notes, appointments, orders, and referrals). Additional future care activities may be listed in the Plan of Care section. Result Assessment and Plan Date Source Assessment and Plan Extracted from:Title : [facility] Author: ELIN CAMARILLO MD Date: 05/10/24 [...] Elin Camarillo DO Family Medicine Faculty Physician [address] [place] [address], Formerly [facility] Ishan [employer] Extracted from:Title: Family Medicine Note- Sleep apnea, diarrhea Author: JOE MOSLEY MD Date: 04/17/23 1. C hronic diarrhea of unknown origin Acute, u ncontrolled. HPI and PE suggestive of IBS. [place] IV criteria c/w diagnosis. No associated alarm [...] tab(s), Pharmacy: [facility] [Not filled] sertraline(sertraline 100 mg oral tablet), 1 tab(s), Oral, Daily, 90 tab(s), # 90 tab(s), 3 total refill(s), Maintenance, 1 tab(s) Oral Daily,Instr:90 tab(s), Pharmacy: [facility] [Not filled] valACYclovir(valACYclovir 500 mg oral tablet), 1 tab(s), Oral, Daily, 90 tab(s), # 90 tab(s), 3 total refill(s), Maintenance, 1 tab(s) Oral Daily,Instr:90 tab(s), Pharmacy: [facility] [Not filled] MG Mammo Beck Screening Bilateral Capt Tawanna Faulkner), [facility], Vending Technician, PGY-1 [employer] Addendum by DENISE HOUSE DO on April 18, 2023 14:51:35 CDT I certify that I was physically present with the resident and patient. I have discussed the diagnosis and treatment plan with the resident [id number]. I have reviewed the note and concur with the findings, assessment, and plan. Follow up as listed. All labs/imaging/consults to be followed by the ordering provider. Capt Maninder, [facility], Staff Physician Extracted from:Title: -[facility] follow-up Author: VICKI LAMB MD Date: 03/23/23 [...] A1c Lipid Panel CAPT VICKI LAMB MD [facility] [address] [facility] FAMILY MEDICINE, PGY-2 Addendum by JOSE ROBERTO GANDHI MD on March 26, 2023 17:49:49 CDT On the date of this encounter, I was immediately available to assist the resident in the care of the patient, and have reviewed and agree with the resident s findings and plan of care Maj KATERINA (), [facility] Family Medicine-Obstetrics Faculty [employer] Future Scheduled TestsLaboratoryHIV-1/O/2 05/10/24emoglobin A1c 05/10/24epatitis C Antibody 05/10/24Lipid Panel 05/10/24RadiologyXR Knee Weight Bearing 3+ Left 05/10/24XR Knee Weight Bearing 3+ Right 05/10/24 03/31/2025 [id number] [facility] Assessment and Plan Extracted from:Title : [facility] Author: ELIN CAMARILLO MD Date: 05/10/24 1. W ell adult Preventative Medicine / [facility] visit with no emergent concerns. ----- VACCINES: [...] prophylaxis [Not filled] Capt Elin Camarillo DO [employer] Medicine Faculty Physician [address] [place] [address], Former[facility] Ishan [place] Extracted from:Title: Family Medicine Note- Sleep apnea, diarrhea Author: JOE MOSLEY MD Date: 04/17/23 1. C hronic diarrhea of unknown origin Acute, u ncontrolled. HPI and PE suggestive of IBS. [place] IV criteria c/w diagnosis. No associated alarm [...] 1 tab(s) Oral Daily,Instr:90 tab(s), Pharmacy: [facility] [Not filled] famotidine(famotidine 20 mg oral tablet), 1 tab(s), Oral, Daily, 90 tab(s), # 90 tab(s), 3 total refill(s), Maintenance, 1 tab(s) Oral Daily,Instr:90 tab(s), Pharmacy: [facility] [Not filled] rOPINIRole(rOPINIRole 1 mg oral tablet), 1 tab(s), Oral, Daily, 90 tab(s), # 90 tab(s), 3 total refill(s), Maintenance, 1 tab(s) Oral Daily,Instr:90 tab(s), Pharmacy: [facility] [Not filled] rosuvastatin(rosuvastatin 10 mg oral tablet), 1 tab(s), Oral, Daily, 90 tab(s), # 90 tab(s), 3 total refill(s), Maintenance, 1 tab(s) Oral Daily,Instr:90 tab(s), Pharm[facility]: [facility] [Not filled] sertraline(sertraline 100 mg oral tablet), 1 tab(s), Oral, Daily, 90 tab(s), # 90 tab(s), 3 total refill(s), Maintenance, 1 tab(s) Oral Daily,Instr:90 tab(s), Pharmacy: [facility] [Not filled] valACYclovir(valACYclovir 500 mg oral tablet), 1 tab(s), Oral, Daily, 90 tab(s), # 90 tab(s), 3 total refill(s), Maintenance, 1 tab(s) Oral Daily,Instr:90 tab(s), Pharmacy: [facility] [Not filled] MG Mammo Beck Screening Bilateral Capt Tawanna Faulkner), [facility], Vending Technician, PGY-1 [employer] Addendum by DENISE HOUSE DO on April 18, 2023 14:51:35 CDT I certify that I was physically present with the resident and patient. I have discussed the diagnosis and treatment plan with the resident [id number]. I have reviewed the note and concur with the findings, assessment, and plan. Follow up as listed. All labs/imaging/consults to be followed by the ordering provider. Capt Maninder, [facility], Staff Physician Extracted from:Title: -[facility] follow-up Author: VICKI LAMB MD Date: 03/23/23 [...] A1c Lipid Panel CAPT VICKI LAMB MD [facility] [address] [facility] FAMILY MEDICINE, PGY-2 Addendum by JOSE ROBERTO GANDHI MD on March 26, 2023 17:49:49 CDT On the date of this encounter, I was immediately available to assist the resident in the care of the patient, and have reviewed and agree with the resident s findings and plan of care Maj Tawanna BOREGS), [facility] Family Medicine-Obstetrics Faculty [employer] Future Scheduled TestsLaboratoryHIV-1/O/2 05/10/24emoglobin A1c 05/10/24epatitis C Antibody 05/10/24Lipid Panel 05/10/24RadiologyXR Knee Weight Bearing 3+ Left 05/10/24XR Knee Weight Bearing 3+ Right 05/10/24 03/31/2025 Unknown Organization Functional Status Combined list of recent functional and cognitive assessments recorded at [facility] and [facility] ([facility] Functional [place] Measurement (FIM) Scale: 1 = Total Assistance (Subject = 0% +), 2 = Maximal Assistance (Subject = 25% +), 3 = Moderate Assistance (Subject = 50% +), 4 = Minimal Assistance (Subject = 75% +), 5 = Supervision, 6 = Modified [place] (Device), 7 = Complete [place] (Timely, Safely). Assessment Date/Time Source Assessment Type Assessment Skill Assessment Score Assessment Details No data available for this section
--- OUTSIDE RECORDS SUMMARY | 2025-03-31 01:12 | XMS_ITS | Patient Health Record ---
Author Organization [facility] Address [address] [place], [place] [id number] Care Team Providers Care Preparer Samples And Repairs Name Role Phone MAXIMILIAN MONTERO Unavailable [phone] Reason For Referral No Information Medications Medication SIG (Take, Route, Frequency, Duration) Notes Start Date End Date Status Medrol Dosepak ORAL Medrol DosepakOr iginal MedicationMedrol Dosepak *[facility]* 09/09/2019 Active calcium carbonate 400 MG / cholecalciferol 133 UNT / magnesium oxide 167 MG Oral Tablet ORAL calcium carbonate 400 MG / cholecalciferol 133 UNT / magnesium oxide 167 MG Oral TabletOriginal Medicationcalcium carbonate 400 MG / cholecalciferol 133 UNT / magnesium oxide 167 MG Oral Tablet *Reorder from Sd 09/10/2019 Active Lysine 1000 MG Oral Tablet ORAL lysine 1000 MG Oral TabletOriginal Medicationlysine 1000 MG Oral Tablet *[facility]* 09/10/2019 Active Plan Of Treatment No Information Insurance Providers Payer Name Payer Address Payer Phone Subscriber Number Group Number Insured Name Patient Relationship to Insured Coverage Start Date Coverage End Date [facility] [address] [place] [phone] [id number] ROSENDO CLEMONS JR Spouse - patient is the spouse of the insured
--- OUTSIDE RECORDS SUMMARY | 2025-03-31 01:12 | XMS_ITS | Clinical Summary ---
Author Organization [facility] Address [address] [place] [address] Phone Care Team Providers Care Plating Stripper Name Role Phone Provider, None Primary Care [...] age to complete this topic Care Teams Plating Stripper Relationship Specialty Start Date End Date Provider, None [place] PCP - General 12/01/16
--- OUTSIDE RECORDS SUMMARY | 2025-03-31 01:12 | XMS_ITS | Clinical Summary ---
Author Organization [facility] Address [address] [place] [id number] Care Team Providers Care Building And Grounds Supervisor Name Role Phone Unavailable Primary Care Provider [...]
[2025-03-31] MEDS: LACTATED RINGERS 1,000 ML 30 ML IV CONT (06:20)
[2025-03-31] MEDS: KETOROLAC 15 MG/ML VIAL (*BKC) IV PUSH (06:25)
[2025-03-31] MEDS: ACETAMINOPHEN 500 MG TABLET 1000 MG PO (06:25)
--- NOTE | 2025-03-31 06:47 | WPDHPUPDATE1 ---
History and Physical Update Update Date/Time: 03/31/25 06:47 History and Physical has been reviewed, including an updated exam of the patient. There are NO changes in the patient's condition. Risks, benefits, and alternatives have been discussed and questions answered. Patient agrees to proceed with procedure. Arthroscopy, partial meniscectomy, proceed as indicated.
--- NOTE | 2025-03-31 07:05 | P.PNAN_ITS ---
Anes - Initial Pre Proc Eval Procedure: Operation Date: 03/31/25 07:30 Proposed Procedures p Right Knee Arthroscopy, Partial Meniscectomy, Proceed As Indicated - Carlos Nina MD Date/Time: 03/31/25 07:05 Surgeon: Carlos Nina MD Pre Op Diagnosis: right knee medial meniscal tear Patient Data Age: 64 Gender: F Height: 1.65 m Weight: 124.4 kg Last Vital Signs Temp 36.3 C L 03/31/25 06:00 Pulse 70 03/31/25 06:00 Resp 16 03/31/25 06:00 BP 163/74 H 03/31/25 06:00 Pulse Ox 95 03/31/25 06:00 Allergies Allergy/AdvReac Type Severity Reaction Status Date / Time No Known Allergies Allergy Unknown Verified 03/31/25 06:11 Home Medications ?Medication ?Instructions ?Recorded ?Confirmed ?Type Bifidobacterium combo no.9 1 See Rx Instructions PO .COMPLEX 12/27/24 03/31/25 History billion cell capsule,delayed release (Adult 50 Plus Probiotic Rosa) cetirizine 10 mg tablet 10 mg PO DAILY PRN allergy symptoms 12/27/24 03/24/25 History ropinirole 1 mg tablet 1 mg PO QHS 12/27/24 03/24/25 History rosuvastatin 10 mg tablet 10 mg PO DAILY 12/27/24 03/24/25 History sertraline 100 mg tablet 100 mg PO DAILY 12/27/24 03/24/25 History sertraline 50 mg tablet 50 mg PO DAILY 12/27/24 03/24/25 History valacyclovir 500 mg tablet 500 mg PO BID 12/27/24 03/24/25 History celecoxib 200 mg capsule (Celebrex) 200 mg PO DAILY #30 caps 02/11/25 03/31/25 Rx cihngxlc-ori-bdgg-FA-Ca carb-vit K 1 tablet PO DAILY 03/24/25 03/31/25 History 18 mg iron-400 mcg-500 mg tablet (One-A-Day Womens Formula) Patient hx anesthesia problems: none Family hx anesthesia problems: none Results Review: All pre-operative results and documents have been reviewed as part of the pre- operative evaluation. [facility] Past Medical History Medical History Restless leg Prediabetes Hyperlipidemia Depression with anxiety Surgical History Surgical History History of tonsillectomy 2016 History of cholecystectomy Family History Family History Mother TIA (transient ischemic attack) Social History Social History Smoking status: Never smoker Alcohol intake: current Substance use: never Do You Feel Safe in your Home?: Yes Lack of Transportation: No Lack of Food: Never True Current Housing: I Have Housing Concerned About Future Housing: No Difficulty Paying Gas/Electric Bills: YES Difficulty Paying for Meds: No Currently Unemployed: No Education: High School Diploma/GED Difficulty w/ Childcare or Family Care: No Living arrangements: with family Spiritual care concerns: No Anes - Eval Final PreProcedure Day of Procedure 03/31/25 07:05 Patient weight: morbidly obese Heart: regular rate and rhythm Lungs: clear to auscultation Airway: Mallampati scale class II Neurological: alert and oriented Last oral intake: >/= 8 hours ASA classification: III Emergent: no Anesthetic plan: proceed Anesthesia type and monitoring: general LMA and standard monitoring Results Review: All pre-operative results and documents have been reviewed as part of the pre- operative evaluation. Informed Consent: The patient's anesthetic plan and its attendant risks and benefits were discussed with the patient/family/POA. Questions were solicited and answers provided to the satisfaction of the patient/family/POA.
[2025-03-31] MEDS: ceFAZolin 3 GM/D5W 100 ML 100 ML IVPB (07:22)
--- NOTE | 2025-03-31 07:58 | W.PM.PROC2 ---
Procedure Note - Detailed Date of Procedure 03/31/25 Pre-op Diagnosis Right knee medial meniscal tear Post-op Diagnosis Same Procedure Performed RIGHT knee arthroscopy with partial meniscectomy Surgeon Carlos Nina MD Anesthesia General Indications Pain, Locking and Catching Findings Meniscal tears and degeneration Description of Procedure Patient brought to operating room # 7. An anesthetic was administered. The knee was sterilely prepped and draped in the usual manner. Standard portals were used. Superior medial portal was used for the outflow cannula, inferior lateral portal was used for the scope, inferior medial portal was used for the instruments. Arthroscopy was performed, the patellar femoral joint degenerative changes. The medial compartment showed a complex tear. The lateral compartment showed fraying. The ACL was intact. Using baskets and philip the meniscal tear was trimmed back to a stable base so the nothing further could be pulled into the joint. Any loose or delaminated fragments were gently trimmed to a stable base. At this point the instruments were withdrawn, sutures placed and patient left the operating room in satisfactory condition. Estimated Blood Loss 20 Drains No Packing No Pathology None sent Complications No immediate complications Condition Stable Disposition PACU [facility] Billing Surgery - Charge Forward: Surgery Billing ([id number] Knee Scope)
[2025-03-31] MEDS: LIDO 1%/EPINEPHRINE 1:100,000 20 ML VIAL 10 ML INFILTRATE (08:00)
[2025-03-31] MEDS: fentaNYL CITRATE INJ (*CRX) 100 MCG/2 ML VIAL 25 MCG IV PUSH ×2 (08:25→08:30)
[2025-03-31] MEDS: oxyCODONE HCL (*CRX) 5 MG TAB IR PO (09:20)
== END 2025-03-31 10:27 | disposition home or self-care (01) ==
PROVIDERS: PCP Nurse Practitioner Family; Visit Provider Orthopaedic Surgery
PROC: (CPT 29870; principal; 2025-03-31 07:30)
DX: S83.231A Complex tear of medial meniscus, current injury, right knee, initial encounter (principal); M94.261 Chondromalacia, right knee; E78.5 Hyperlipidemia, unspecified; R73.03 Prediabetes; G25.81 Restless legs syndrome; F41.8 Other specified anxiety disorders; X58.XXXA Exposure to other specified factors, initial encounter; E66.01 Morbid (severe) obesity due to excess calories; Z68.42 Body mass index [BMI] 45.0-49.9, adult; Z79.1 Long term (current) use of non-steroidal anti-inflammatories (NSAID); Z98.890 Other specified postprocedural states; Z90.49 Acquired absence of other specified parts of digestive tract; Z82.3 Family history of stroke
CPT/HCPCS: 29881; A9270; J0360; J0690; J1100; J1885; J2003; J2004; J2250; J2405; J2704; J3010; J7120